=== PATIENT | female | born 1950 | race Caucasian/White ===

== ENCOUNTER 2017-04-05 09:30 | Inpatient (IN) | payer MEDICARE, MEDICAID ==
[2017-04-05] MEDS ORDERED: Ondansetron 4 MG Tab.DIS PO PRN (11:05)
[2017-04-05] MEDS ORDERED: Famotidine 20 MG Tab PO PRN (11:17)
[2017-04-05] MEDS ORDERED: Formoterol/Mometasone 100-5 MCG 8.8 GM Inhaler IH PRN (11:17)
[2017-04-05] MEDS ORDERED: Albuterol 8 GM Inhaler INH PRN (11:17)
[2017-04-05] MEDS ORDERED: Cyclobenzaprine 10 MG Tab PO PRN (11:17)
[2017-04-05] MEDS ORDERED: Sodium Chloride 0.9% 250 ML IV ONE (12:25)
[2017-04-05] MEDS: Pantoprazole 40 MG Vial IV SCH (12:36)
[2017-04-05] MEDS: Insulin Aspart 100 Units/ML 3 ML Pen SUBCUT SCH ×4 (12:45→21:42)
[2017-04-05] MEDS: Gabapentin 100 MG Cap PO SCH ×2 (13:54→19:34)
[2017-04-05] MEDS: Furosemide 40 MG Tab PO SCH (15:25)
[2017-04-05] MEDS: Sodium Chloride 0.9% 1,000 ML IV SCH (17:58)
[2017-04-05] MEDS: atorvaSTATin 20 MG Tab PO SCH ×2 (19:32→19:34)
[2017-04-05] MEDS: LORazepam 0.5 MG Tab PO SCH (19:33)
[2017-04-05] MEDS: QUEtiapine 100 MG Tab PO SCH (19:34)
[2017-04-05] MEDS: Insulin Detemir 100 Units/ML 3 ML Pen SUBCUT SCH (19:36)
[2017-04-05] MEDS: FISH OIL 1000 MG PO SCH (19:43)
[2017-04-05] MEDS: traMADol 50 MG Tab PO PRN (21:44)
[2017-04-06] MEDS: Sodium Chloride 0.9% 1,000 ML IV SCH (07:03)
[2017-04-06] MEDS: traMADol 50 MG Tab PO PRN ×2 (07:09→15:32)
[2017-04-06] MEDS: Citalopram 10 MG Tab PO SCH (07:52)
[2017-04-06] MEDS: Loratadine 10 MG Tab PO SCH (07:53)
[2017-04-06] MEDS: Gabapentin 100 MG Cap PO SCH ×3 (07:53→19:32)
[2017-04-06] MEDS: Losartan 25 MG Tab PO SCH (07:53)
[2017-04-06] MEDS: Furosemide 40 MG Tab PO SCH ×2 (07:53→15:35)
[2017-04-06] MEDS ORDERED: Aspirin 81 MG Tab.EC PO SCH (08:00)
[2017-04-06] MEDS: Insulin Aspart 100 Units/ML 3 ML Pen SUBCUT SCH ×7 (08:01→20:50)
[2017-04-06] MEDS: Insulin Detemir 100 Units/ML 3 ML Pen SUBCUT SCH ×2 (08:05→20:48)
[2017-04-06] MEDS: TRADJENTA 5 MG PO SCH (08:06)
[2017-04-06] MEDS: Metoprolol Succinate 25 MG Tab.ER PO SCH (08:10)
[2017-04-06] MEDS: Pantoprazole 40 MG Vial IV SCH (13:29)
[2017-04-06] MEDS ORDERED: Sodium Chloride 0.9% 10 ML Syringe FLUSH PRN (13:32)
--- NOTE | 2017-04-06 13:32 | PCM.PN ---
- General Info Date of Service: 04/06/17 Admission Dx/Problem (Free Text): Anemia Functional Status: Reports: Pain Controlled, Tolerating Diet. Denies: Ambulating - Review of Systems General: Denies: Fever HEENT: Denies: Ear Pain, Sinus Congestion, Sore Throat Pulmonary: Denies: Shortness of Breath, Cough Cardiovascular: Denies: Chest Pain, Edema, Lightheadedness Gastrointestinal: Reports: Other (bloating). Denies: Melena (stool positive for blood), Nausea, Vomiting Genitourinary: Reports: No Symptoms Musculoskeletal: Reports: Back Pain, Other (side pain) Skin: Reports: Bruising Neurological: Reports: No Symptoms - Patient Data Vitals - Most Recent: Last Vital Signs Temp 100.1 F 04/06/17 11:52 Pulse 87 04/06/17 11:52 Resp 20 04/06/17 11:52 BP 105/61 04/06/17 11:52 Pulse Ox 95 04/06/17 11:52 Weight - Most Recent: 234 lb I&O - Last 24 Hours: Intake & Output 04/05/17 04/06/17 04/06/17 22:59 06:59 14:59 Intake Total 2190 200 981 Output Total 650 1250 Balance 1540 -1050 981 Lab Results Last 24 Hours: Laboratory Results - last 24 hr 04/05/17 04/05/17 04/05/17 Range/Units 09:30 12:35 17:12 WBC (5.0-10.0) 10^3/uL RBC (4.00-5.50) 10^6/uL Hgb (12.0-16.0) g/dL Hct (37.0-47.0) % MCV (82.0-94.0) fL MCH (27.0-32.0) pg MCHC (33.0-38.0) g/dL RDW Coeff of Davis (11.0-15.0) % Plt Count (150-400) 10^3/uL Neut % (Auto) (35-85) % Lymph % (Auto) (10-55) % King % (Auto) (0-16) % Eos % (Auto) (0-5) % Baso % (Auto) (0-3) % Neut # (Auto) (1.80-7.00) 10^3/uL Lymph # (Auto) (1.00-4.80) 10^3/uL [place] # (Auto) (0.00-0.80) 10^3/uL Eos # (Auto) (0.00-0.45) 10^3/uL Baso # (Auto) 10^3/uL POC Glucose 173 H (75-105) mg/dl Iron 55 (35-145) ug/dL TIBC 408 (261-478) ug/dL Transferrin % Sat 13.5 L (20.0-50.0) % Ferritin 8 L (11-307) ng/mL Blood Type A POSITIVE Gel Antibody Screen Negative Crossmatch See Detail 04/05/17 04/06/17 04/06/17 Range/Units 19:39 07:46 08:00 WBC 4.5 L (5.0-10.0) 10^3/uL RBC 3.23 L (4.00-5.50) 10^6/uL Hgb 9.3 L (12.0-16.0) g/dL Hct 29.1 L (37.0-47.0) % MCV 90.1 (82.0-94.0) fL MCH 28.8 (27.0-32.0) pg MCHC 32.0 L (33.0-38.0) g/dL RDW Coeff of Davis 15.0 (11.0-15.0) % Plt Count 128 L (150-400) 10^3/uL Neut % (Auto) 58.8 (35-85) % Lymph % (Auto) 29.6 (10-55) % King % (Auto) 8.5 (0-16) % Eos % (Auto) 2.4 (0-5) % Baso % (Auto) 0.7 (0-3) % Neut # (Auto) 2.64 (1.80-7.00) 10^3/uL Lymph # (Auto) 1.33 (1.00-4.80) 10^3/uL [place] # (Auto) 0.38 (0.00-0.80) 10^3/uL Eos # (Auto) 0.11 (0.00-0.45) 10^3/uL Baso # (Auto) 0.03 10^3/uL POC Glucose 173 H 90 (75-105) mg/dl Iron (35-145) ug/dL TIBC (261-478) ug/dL Transferrin % Sat (20.0-50.0) % Ferritin (11-307) ng/mL Blood Type Gel Antibody Screen Crossmatch 04/06/17 Range/Units 11:56 WBC (5.0-10.0) 10^3/uL RBC (4.00-5.50) 10^6/uL Hgb (12.0-16.0) g/dL Hct (37.0-47.0) % MCV (82.0-94.0) fL MCH (27.0-32.0) pg MCHC (33.0-38.0) g/dL RDW Coeff of Davis (11.0-15.0) % Plt Count (150-400) 10^3/uL Neut % (Auto) (35-85) % Lymph % (Auto) (10-55) % [place] % (Auto) (0-16) % Eos % (Auto) (0-5) % Baso % (Auto) (0-3) % Neut # (Auto) (1.80-7.00) 10^3/uL Lymph # (Auto) (1.00-4.80) 10^3/uL [place] # (Auto) (0.00-0.80) 10^3/uL Eos # (Auto) (0.00-0.45) 10^3/uL Baso # (Auto) 10^3/uL POC Glucose 188 H (75-105) mg/dl Iron (35-145) ug/dL TIBC (261-478) ug/dL Transferrin % Sat (20.0-50.0) % Ferritin (11-307) ng/mL Blood Type Gel Antibody Screen Crossmatch Med Orders - Current: Current Medications Acetaminophen (Tylenol) 650 mg PO Q4H PRN PRN Reason: Pain (Mild 1-3)/fever Albuterol (Ventolin Hfa) 0 gm INH Q4H PRN PRN Reason: Dyspnea Last Admin: 04/05/17 12:48 Dose: 1 puff Atorvastatin Calcium (Lipitor) 80 mg PO BEDTIME [facility] Last Admin: 04/05/17 19:34 Dose: 80 mg Citalopram Hydrobromide (Celexa) 40 mg PO DAILY [facility] Last Admin: 04/06/17 07:52 Dose: 40 mg Cyclobenzaprine HCl (Flexeril) 10 mg PO TID PRN PRN Reason: muscle spasms Famotidine (Pepcid) 20 mg PO DAILY PRN PRN Reason: heart burn Ferrous Sulfate (Ferrous Sulfate) 324 mg PO BIDMEALS GARRY Furosemide (Lasix) 40 mg PO BIDDIURETIC [facility] Last Admin: 04/06/17 07:53 Dose: 40 mg Gabapentin (Neurontin) 100 mg PO TID [facility] Last Admin: 04/06/17 07:53 Dose: 100 mg Sodium Chloride (Normal Saline) 1,000 mls @ 75 mls/hr IV ASDIRECTED [facility] Last Admin: 04/06/17 07:03 Dose: 75 mls/hr Insulin Aspart (Novolog) 40 unit SUBCUT TIDMEALS [facility] Last Admin: 04/06/17 11:57 Dose: 40 unit Insulin Aspart (Novolog) 0 unit SUBCUT WITHMEALSANDBED [facility] PRN Reason: Protocol Last Admin: 04/06/17 11:57 Dose: 3 units Insulin Detemir (Levemir) 60 unit SUBCUT BID [facility] Last Admin: 04/06/17 08:05 Dose: 60 units Loratadine (Claritin) 10 mg PO DAILY [facility] Last Admin: 04/06/17 07:53 Dose: 10 mg Lorazepam (Ativan) 2 mg PO BEDTIME [facility] Last Admin: 04/05/17 19:33 Dose: 2 mg Losartan Potassium (Cozaar) 25 mg PO DAILY [facility] Last Admin: 04/06/17 07:53 Dose: 25 mg Metoprolol Succinate (Toprol Xl) 25 mg PO DAILY [facility] Last Admin: 04/06/17 08:10 Dose: 25 mg Mometasone Furoate/Formoterol Fumar (Dulera 100-5 Mcg) 1 puff IH BIDRT PRN PRN Reason: breathing Ptom [Tradjenta] 5 (Mg)) 5 mg PO DAILY [facility] Last Admin: 04/06/17 08:06 Dose: Not Given Ptom [Fish Oil 1,000 (Mg Softgel] 3 Ca) 3 cap PO BEDTIME [facility] Last Admin: 04/05/17 19:43 Dose: Not Given Ondansetron HCl (Zofran Odt) 4 mg PO Q6H PRN PRN Reason: nausea, able to take PO Pantoprazole Sodium (Protonix Iv) 40 mg IV Q24H [facility] Last Admin: 04/05/17 12:36 Dose: 40 mg Quetiapine Fumarate (Seroquel) 300 mg PO BEDTIME [facility] Last Admin: 04/05/17 19:34 Dose: 300 mg Tramadol HCl (Ultram) 50 mg PO Q6H PRN PRN Reason: Pain Last Admin: 04/06/17 07:09 Dose: 50 mg Discontinued Medications Sodium Chloride (Normal Saline) 250 mls @ 30 mls/hr IV ONETIME ONE Stop: 04/05/17 20:44 Last Admin: 04/05/17 12:47 Dose: 30 mls/hr - Exam General: Alert, Oriented HEENT: Mucous Membr. Moist/[place] Neck: Supple Lungs: Clear to Auscultation, Normal Respiratory Effort Cardiovascular: Regular Rate, Regular Rhythm GI/Abdominal Exam: Normal Bowel Sounds, Soft, Distended. No: Guarding, Rigid Extremities: Normal Inspection Skin: Warm, Dry, Ecchymosis - Problem List & Annotations (1) Anemia SNOMED Code(s): 153079300 Code(s): D64.9 - ANEMIA, UNSPECIFIED Status: Acute Priority: High Current Visit: Yes Qualifiers: Anemia type: other cause - Problem List Review Problem List Initiated/Reviewed/Updated: Yes - My Orders Last 24 Hours: My Active Orders 04/06/17 08:00 Metoprolol Succinate [Toprol XL] 25 mg PO DAILY 04/06/17 17:30 Ferrous Sulfate 324 mg PO BIDMEALS - Assessment Assessment:: Anemia-GI Bleed QASIM - Plan Plan:: Patient feels more fatigued today. She has been sleeping much of stay thus far. Denies feeling short of breath today. Noted stool was positive for blood on admit. Was given 2 units of blood yesterday. Has not had any stools since admit. Feels more bloated today but is tolerating full liquids without any concern. Repeat hemoglobin today 9.3. Iron studies noted, ferritin low. Will follow hemoglobin daily. Start ferrous sulfate. Saline lock IV. Encourage ambulation. Inappropriate for discharge.
[2017-04-06] MEDS: Ferrous Sulfate 324 MG Tab.EC PO SCH (17:27)
[2017-04-06] MEDS: atorvaSTATin 20 MG Tab PO SCH (19:32)
[2017-04-06] MEDS: QUEtiapine 100 MG Tab PO SCH (19:32)
[2017-04-06] MEDS: Acetaminophen 325 MG Tab PO PRN (19:49)
[2017-04-06] MEDS: FISH OIL 1000 MG PO SCH (19:51)
[2017-04-06] MEDS: LORazepam 0.5 MG Tab PO SCH (20:47)
[2017-04-07] MEDS: traMADol 50 MG Tab PO PRN ×2 (04:57→12:19)
[2017-04-07] MEDS: Citalopram 10 MG Tab PO SCH (08:08)
[2017-04-07] MEDS: Gabapentin 100 MG Cap PO SCH (08:09)
[2017-04-07] MEDS: Furosemide 40 MG Tab PO SCH (08:09)
[2017-04-07] MEDS: Loratadine 10 MG Tab PO SCH (08:09)
[2017-04-07] MEDS: Ferrous Sulfate 324 MG Tab.EC PO SCH (08:09)
[2017-04-07] MEDS: Losartan 25 MG Tab PO SCH (08:10)
[2017-04-07] MEDS: Metoprolol Succinate 25 MG Tab.ER PO SCH (08:10)
[2017-04-07] MEDS: Insulin Aspart 100 Units/ML 3 ML Pen SUBCUT SCH ×4 (08:11→12:14)
[2017-04-07] MEDS: TRADJENTA 5 MG PO SCH (08:12)
[2017-04-07] MEDS: Insulin Detemir 100 Units/ML 3 ML Pen SUBCUT SCH (08:14)
[2017-04-07] MEDS: Acetaminophen 325 MG Tab PO PRN (08:17)
[2017-04-07] MEDS: Pantoprazole 40 MG Vial IV SCH (12:01)
[2017-04-07 12:26] VITALS: BP 118/65
--- NOTE | 2017-04-07 13:35 | PCM.DCSUM1 ---
Discharge Summary - Hospital Course Free Text/Narrative:: Patient admitted on Saturday from clinic with anemia. Had presented feeling short of breath and tired. Work up did show that hemoglobin was down to 8.2. Her last hemoglobin was 13. She had not noted any blood in her stools but she had felt abdominal bloating and discomfort. Occult stool was positive from clinic. Her vital signs were stable. Oxygen sats stable. Was admitted and started IV Protonix. Given 2 units of PRBC. - Discharge Data Discharge Date: 04/07/17 Discharge Disposition: DC/Tfer to Acute Hospital 02 Condition: Stable - Discharge Diagnosis/Problem(s) (1) Anemia SNOMED Code(s): 643733949 ICD Code: D64.9 - ANEMIA, UNSPECIFIED Status: Acute Priority: High Current Visit: Yes - Patient Summary/Data Complications: none Hospital Course: Patient admitted for anemia. Was found to have positive occult blood in stool. Given 2 units of PRBC on admit and hemoglobin improved to 9.3 on day 2. She has not had any further stools since admission. Does complain of her abdomen/ stomach being sore. Vital signs have remained stable, oxygen sats 94-95% on room air. She was started on IV fluids and well hydrated, tolerated clear liquid diet. Was able to be advanced without any difficulty. Hemoglobin did drop down to 8.9 today so patient requesting to be transferred to [facility] for further work up as she is concerned about this and "does not want to wait for a scope here". She has been seen at that facility in the past. Is up and ambulating to bathroom fairly well but complains of ongoing significant fatigue and weakness. Iron studies were also low and was started on oral ferrous sulfate yesterday. - Patient Instructions Diet: NPO Activity: As Tolerated Other/Special Instructions: Transfer to Dr. Miller at [facility] per S service - Discharge Plan Home Medications: Home Meds LORazepam [Ativan] 2 mg PO BEDTIME 10/21/13 [History] QUEtiapine [SEROquel] 300 mg PO BEDTIME 10/21/13 [History] atorvaSTATin [Lipitor] 80 mg PO BEDTIME 10/21/13 [History] Citalopram Hydrobromide [Celexa] 40 mg PO DAILY 10/22/13 [History] Cyclobenzaprine [Flexeril] 10 mg PO TID PRN 10/22/13 [History] Albuterol [Proair HFA] 2 puff INH Q4H PRN 09/09/14 [History] Aspirin [Halfprin] 81 mg PO DAILY 09/09/14 [History] Budesonide/Formoterol [Symbicort 160-4.5 MCG] 1 puff INH DAILY 09/09/14 [History ] Cetirizine [ZyrTEC] 10 mg PO DAILY 09/09/14 [History] Furosemide [Lasix] 40 mg PO BID 09/09/14 [History] Losartan Potassium 25 mg PO DAILY 09/09/14 [History] [place]-3/DHA/Epa/Fish Oil [Fish Oil 1,000 mg Softgel] 3 cap PO BEDTIME 09/09/14 [ History] Gabapentin [Neurontin] 100 mg PO TID 04/05/17 [History] Insulin Aspart [Novolog Flexpen] 50 units SUBCUT TIDMEALS 04/05/17 [History] Linagliptin [Tradjenta] 5 mg PO DAILY 04/05/17 [History] Ranitidine [Zantac] 150 mg PO DAILY PRN 04/05/17 [History] Tresiba 120 units SUBCUT BEDTIME 04/05/17 [History] traMADol HCl [Tramadol HCl] 50 mg PO Q6H PRN 04/05/17 [History] Metoprolol Succinate [Toprol Xl] 25 mg PO DAILY 04/06/17 [History] - Discharge Summary/Plan Comment DC Time >30 min.: Yes Discharge Summary/Plan Comment: Transferred to [facility] per patient request. Did contact Dr. Denny at [facility], hospitalist, who did agree to accept the transfer for further work up. Will transfer BLS. Was advised of risks of transfer to include worsening status, bleeding, MVC or even . Benefits of transfer include specialty service. Benefits of nontransfer include facility close to home, treatment for ulcer but no specialty care. She agrees to risks and benefits. - General Info Date of Service: 04/07/17 Admission Dx/Problem (Free Text: Anemia Functional Status: Reports: Pain Controlled, Tolerating Diet, Ambulating - Review of Systems General: Reports: Weakness, Fatigue. Denies: Fever HEENT: Reports: No Symptoms Pulmonary: Reports: Shortness of Breath. Denies: Cough, Wheezing Cardiovascular: Denies: Chest Pain, Edema, Lightheadedness Gastrointestinal: Reports: Abdominal Pain. Denies: Constipation, Diarrhea, Nausea, Vomiting Genitourinary: Reports: No Symptoms Musculoskeletal: Reports: No Symptoms Skin: Reports: No Symptoms Neurological: Reports: No Symptoms - Patient Data Vitals - Most Recent: Last Vital Signs Temp 98.1 F 04/07/17 12:00 Pulse 96 04/07/17 12:00 Resp 20 04/07/17 12:00 BP 118/65 04/07/17 12:00 Pulse Ox 97 04/07/17 12:00 Weight - Most Recent: 233 lb I&O - Last 24 hours: Intake & Output 04/06/17 04/07/17 04/07/17 22:59 06:59 14:59 Intake Total 1400 795 900 Output Total 1000 1300 500 Balance 400 -505 400 Lab Results - Last 24 hrs: Laboratory Results - last 24 hr 04/06/17 04/06/17 04/07/17 Range/Units 17:27 20:46 02:13 WBC 3.6 L (5.0-10.0) 10^3/uL RBC 3.15 L (4.00-5.50) 10^6/uL Hgb 8.9 L (12.0-16.0) g/dL Hct 28.7 L (37.0-47.0) % MCV 91.1 (82.0-94.0) fL MCH 28.3 (27.0-32.0) pg MCHC 31.0 L (33.0-38.0) g/dL RDW Coeff of Davis 14.9 (11.0-15.0) % Plt Count 123 L (150-400) 10^3/uL Neut % (Auto) 42.0 (35-85) % Lymph % (Auto) 43.4 (10-55) % [place] % (Auto) 10.2 (0-16) % Eos % (Auto) 3.6 (0-5) % Baso % (Auto) 0.8 (0-3) % Neut # (Auto) 1.52 L (1.80-7.00) 10^3/uL Lymph # (Auto) 1.57 (1.00-4.80) 10^3/uL [place] # (Auto) 0.37 (0.00-0.80) 10^3/uL Eos # (Auto) 0.13 (0.00-0.45) 10^3/uL Baso # (Auto) 0.03 10^3/uL POC Glucose 107 H 121 H (75-105) mg/dl Med Orders - Current: Current Medications Acetaminophen (Tylenol) 650 mg PO Q4H PRN PRN Reason: Pain (Mild 1-3)/fever Last Admin: 04/07/17 08:17 Dose: 650 mg Albuterol (Ventolin Hfa) 0 gm INH Q4H PRN PRN Reason: Dyspnea Last Admin: 04/05/17 12:48 Dose: 1 puff Atorvastatin Calcium (Lipitor) 80 mg PO BEDTIME [facility] Last Admin: 04/06/17 19:32 Dose: 80 mg Citalopram Hydrobromide (Celexa) 40 mg PO DAILY [facility] Last Admin: 04/07/17 08:08 Dose: 40 mg Cyclobenzaprine HCl (Flexeril) 10 mg PO TID PRN PRN Reason: muscle spasms Famotidine (Pepcid) 20 mg PO DAILY PRN PRN Reason: heart burn Ferrous Sulfate (Ferrous Sulfate) 324 mg PO BIDMEALS [facility] Last Admin: 04/07/17 08:09 Dose: 324 mg Furosemide (Lasix) 40 mg PO BIDDIURETIC [facility] Last Admin: 04/07/17 08:09 Dose: 40 mg Gabapentin (Neurontin) 100 mg PO TID [facility] Last Admin: 04/07/17 08:09 Dose: 100 mg Insulin Aspart (Novolog) 40 unit SUBCUT TIDMEALS [facility] Last Admin: 04/07/17 12:14 Dose: 40 unit Insulin Aspart (Novolog) 0 unit SUBCUT WITHMEALSANDBED [facility] PRN Reason: Protocol Last Admin: 04/07/17 12:14 Dose: 3 units Insulin Detemir (Levemir) 60 unit SUBCUT BID [facility] Last Admin: 04/07/17 08:14 Dose: 60 units Loratadine (Claritin) 10 mg PO DAILY [facility] Last Admin: 04/07/17 08:09 Dose: 10 mg Lorazepam (Ativan) 2 mg PO BEDTIME [facility] Last Admin: 04/06/17 20:47 Dose: 2 mg Losartan Potassium (Cozaar) 25 mg PO DAILY [facility] Last Admin: 04/07/17 08:10 Dose: 25 mg Metoprolol Succinate (Toprol Xl) 25 mg PO DAILY [facility] Last Admin: 04/07/17 08:10 Dose: 25 mg Mometasone Furoate/Formoterol Fumar (Dulera 100-5 Mcg) 1 puff IH BIDRT PRN PRN Reason: breathing Ptom [Tradjenta] 5 (Mg)) 5 mg PO DAILY [facility] Last Admin: 04/07/17 08:12 Dose: 5 mg Ptom [Fish Oil 1,000 (Mg Softgel] 3 Ca) 3 cap PO BEDTIME [facility] Last Admin: 04/06/17 19:51 Dose: Not Given Ondansetron HCl (Zofran Odt) 4 mg PO Q6H PRN PRN Reason: nausea, able to take PO Pantoprazole Sodium (Protonix Iv) 40 mg IV Q24H [facility] Last Admin: 04/07/17 12:01 Dose: 40 mg Quetiapine Fumarate (Seroquel) 300 mg PO BEDTIME [facility] Last Admin: 04/06/17 19:32 Dose: 300 mg Sodium Chloride (Saline Flush) 10 ml FLUSH ASDIRECTED PRN PRN Reason: Keep Vein Open Tramadol HCl (Ultram) 50 mg PO Q6H PRN PRN Reason: Pain Last Admin: 04/07/17 12:19 Dose: 50 mg Discontinued Medications Sodium Chloride (Normal Saline) 1,000 mls @ 75 mls/hr IV ASDIRECTED [facility] Last Admin: 04/06/17 07:03 Dose: 75 mls/hr Sodium Chloride (Normal Saline) 250 mls @ 30 mls/hr IV ONETIME ONE Stop: 04/05/17 20:44 Last Admin: 04/05/17 12:47 Dose: 30 mls/hr - Exam General: Reports: Alert, Oriented HEENT: Reports: Mucous Membr. Moist/[place] Neck: Reports: Supple Lungs: Reports: Clear to Auscultation, Normal Respiratory Effort Cardiovascular: Reports: Regular Rate, Regular Rhythm GI/Abdominal Exam: Normal Bowel Sounds, Soft, Tender (midepigastric pain) Extremities: Normal Inspection, Pedal Edema (trace) Skin: Reports: Warm, Dry Neurological: Reports: No New Focal Deficit *Q Meaningful Use (DIS) - VTE *Q VTE Criteria *Q: - Stroke *Q Stroke Criteria *Q: - AMI *Q AMI Criteria *Q:
== END 2017-04-07 13:45 | DRG 812 ==
LOC: CC.MS 09:30 → CC.FCMC 09:30 → CC.MS 10:27 → UNDOADMIN 10:27 → CC.MS 11:05
PROVIDERS: ADMIT Physician Assistant Medical; ATTEND Family Medicine
PROC: 30233N1 Transfusion of Nonautologous Red Blood Cells into Peripheral Vein, Percutaneous Approach (ICD-10-PCS; principal; 2017-04-05)
DX: D64.9 Anemia, unspecified (principal); K92.2 Gastrointestinal hemorrhage, unspecified; E11.9 Type 2 diabetes mellitus without complications; R53.1 Weakness; R00.2 Palpitations; R06.02 Shortness of breath; E61.1 Iron deficiency; R10.9 Unspecified abdominal pain; Z79.4 Long term (current) use of insulin; Z79.899 Other long term (current) drug therapy; Z88.8 Allergy status to other drugs, medicaments and biological substances; Z79.82 Long term (current) use of aspirin
CPT/HCPCS: 36415; 36430; 71020; 80053; 81001; 82550; 82728; 82962; 83540; 83550; 83615; 84443; 84484; 85025; 86850; 86900; 86901; 86920; 86922; 93005; 93010; A9270-GY; C9113; J1815-GY; J7030; J7050; P9016

== ENCOUNTER 2017-06-07 07:45 | Emergency (ER) | payer MEDICARE, MEDICAID ==
[2017-06-07 08:21] VITALS: BP 127/63
--- NOTE | 2017-06-07 10:23 | EDM.PDOC ---
ED HPI GENERAL MEDICAL PROBLEM - General Chief Complaint: General Stated Complaint: CANT BREATHE Time Seen by Provider: 06/07/17 08:15 Source of Information: Reports: Patient History Limitations: Reports: No Limitations - History of Present Illness INITIAL COMMENTS - FREE TEXT/NARRATIVE: States that for the last couple of days she has been really tired again and then this morning she felt weak and dizzy and SOB like the last time she had this done. Was in [facility] in April for similar episode and was found to have GI bleed on EGD that they weren't able to cauterize according to pt report. We do not have report from that visit. She denies having any pain or nausea. Did not eat or drink this morning. She has not noted any bright red blood from rectum but stool is dark because of iron that she is taking. Onset: Gradual Location: Reports: Abdomen Improves with: Reports: Rest - Related Data Allergies Allergy/AdvReac Type Severity Reaction Status Date / Time codeine Allergy Hives Verified 06/07/17 07:47 erythromycin base Allergy Tachycardia Verified 06/07/17 07:47 lisinopril Allergy Cannot Verified 06/07/17 07:47 Remember meperidine HCl [From Demerol] Allergy Hives Verified 06/07/17 07:47 montelukast sodium Allergy Cannot Verified 06/07/17 07:47 [From Singulair] Remember morphine Allergy Hives Verified 06/07/17 07:47 niacin Allergy Hives Verified 06/07/17 07:47 pregabalin [From Lyrica] Allergy Cannot Verified 06/07/17 07:47 Remember Home Meds: Home Meds LORazepam [Ativan] 2 mg PO BEDTIME 10/21/13 [History] QUEtiapine [SEROquel] 300 mg PO BEDTIME 10/21/13 [History] atorvaSTATin [Lipitor] 80 mg PO BEDTIME 10/21/13 [History] Citalopram Hydrobromide [Celexa] 40 mg PO DAILY 10/22/13 [History] Cyclobenzaprine [Flexeril] 10 mg PO TID PRN 10/22/13 [History] Albuterol [Proair HFA] 2 puff INH Q4H PRN 09/09/14 [History] Aspirin [Halfprin] 81 mg PO DAILY 09/09/14 [History] Budesonide/Formoterol [Symbicort 160-4.5 MCG] 1 puff INH DAILY 09/09/14 [History ] Cetirizine [ZyrTEC] 10 mg PO DAILY 09/09/14 [History] Furosemide [Lasix] 40 mg PO DAILY 09/09/14 [History] Losartan Potassium 25 mg PO DAILY 09/09/14 [History] [place]-3/DHA/Epa/Fish Oil [Fish Oil 1,000 mg Softgel] 3 cap PO BEDTIME 09/09/14 [ History] Gabapentin [Neurontin] 100 mg PO TID 04/05/17 [History] Insulin Aspart [Novolog Flexpen] 50 units SUBCUT TIDMEALS 04/05/17 [History] Linagliptin [Tradjenta] 5 mg PO DAILY 04/05/17 [History] traMADol HCl [Tramadol HCl] 50 mg PO Q6H PRN 04/05/17 [History] Metoprolol Succinate [Toprol Xl] 25 mg PO DAILY 04/06/17 [History] Pantoprazole Sodium 40 mg PO DAILY 04/25/17 [History] Insulin Glargine,Hum.Rec.Anlog [Lantus Solostar] 150 unit SQ BEDTIME 05/08/17 [ History] Amoxicillin 500 mg PO TID 06/07/17 [History] Past Medical History Cardiovascular History: Reports: Hypertension Respiratory History: Reports: Asthma 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) Other OB/BYN History: severe ovarian cysts Musculoskeletal History: Reports: Back Pain, Chronic Psychiatric History: Reports: Anxiety, Depression Endocrine/Metabolic History: Reports: Diabetes, Type II - Past Surgical History HEENT Surgical History: Reports: Adenoidectomy, Tonsillectomy GI Surgical History: Reports: Colonoscopy, Polypectomy Female Surgical History: Reports: Hysterectomy Musculoskeletal Surgical History: Reports: Other (See Below) Social & Family History - Family History Cardiac: Reports: CAD, Hypertension Endocrine/Metabolic: Reports: Diabetes, type II - Tobacco Use Smoking Status *Q: Never Smoker Second Hand Smoke Exposure: No - Alcohol Use Days Per Week of Alcohol Use: 0 - Recreational Drug Use Recreational Drug Use: No - Living Situation & Occupation Living situation: Reports: Single, Alone Occupation: Disabled ED ROS GENERAL - Review of Systems Review Of Systems: See Below Constitutional: Denies: Fever, Chills HEENT: Reports: No Symptoms Respiratory: Reports: Shortness of Breath Cardiovascular: Denies: Chest Pain, Edema GI/Abdominal: Reports: Black Stool. Denies: Bloody Stool, Constipation, Diarrhea, Nausea, Vomiting : Reports: No Symptoms Musculoskeletal: Reports: No Symptoms Skin: Reports: No Symptoms Neurological: Reports: No Symptoms ED EXAM, GENERAL - Physical Exam Exam: See Below Exam Limited By: No Limitations General Appearance: Alert, WD/WN, Mild Distress Ears: Normal External Exam, Normal Canal, Hearing Grossly Normal, Normal TMs Nose: Normal Inspection Throat/Mouth: Normal Inspection, Normal Oropharynx, No Airway Compromise Head: Atraumatic, Normocephalic Neck: Normal Inspection, Supple, Non-Tender, Full Range of Motion Respiratory/Chest: No Respiratory Distress, Lungs Clear, Normal Breath Sounds Cardiovascular: Regular Rate, Rhythm, No Edema GI/Abdominal: Normal Bowel Sounds, Soft, Non-Tender, No Organomegaly Back Exam: Normal Inspection, Full Range of Motion Extremities: Normal Inspection, Normal Range of Motion, No Pedal Edema Neurological: Alert, Oriented Psychiatric: Normal Affect Skin Exam: Warm, Dry, Intact, Normal Color Course - Vital Signs Last Recorded V/S: Last Vital Signs Temp 98.2 F 06/07/17 07:48 Pulse 98 06/07/17 08:20 Resp 18 06/07/17 07:48 BP 127/63 06/07/17 08:20 Pulse Ox - Orders/Labs/Meds Orders: Active Orders 24 hr Category Date Time Status CXR [Chest 2V] [CR] Stat Exams 06/07/17 07:57 Taken Labs: Laboratory Tests 06/07/17 06/07/17 06/07/17 Range/Units 07:57 07:57 07:57 WBC 3.8 L (5.0-10.0) 10^3/uL RBC 2.18 L (4.00-5.50) 10^6/uL Hgb 6.3 L* (12.0-16.0) g/dL Hct 22.3 L (37.0-47.0) % MCV 102.3 H (82.0-94.0) fL MCH 28.9 (27.0-32.0) pg MCHC 28.3 L (33.0-38.0) g/dL RDW Coeff of Davis 15.4 H (11.0-15.0) % Plt Count 159 (150-400) 10^3/uL Neut % (Auto) 52.4 (35-85) % Lymph % (Auto) 31.3 (10-55) % [place] % (Auto) 10.0 (0-16) % Eos % (Auto) 5.8 H (0-5) % Baso % (Auto) 0.5 (0-3) % Neut # (Auto) 1.99 (1.80-7.00) 10^3/uL Lymph # (Auto) 1.19 (1.00-4.80) 10^3/uL [place] # (Auto) 0.38 (0.00-0.80) 10^3/uL Eos # (Auto) 0.22 (0.00-0.45) 10^3/uL Baso # (Auto) 0.02 10^3/uL D-Dimer, Quantitative 0.21 (0.00-0.50) Sodium 139 (136-145) mEq/L Potassium 3.6 (3.5-5.0) mEq/L Chloride 101 (98-106) mEq/L Carbon Dioxide 32 (21-32) mmol/L BUN 15 (7-18) mg/dL Creatinine 1.3 H (0.6-1.0) mg/dL Est Cr Clr Drug Dosing 33.67 mL/min Estimated GFR (MDRD) 41 L (>=60) mL/min Glucose 201 H (75-99) mg/dL Calcium 8.7 (8.4-10.1) mg/dL Meds: Medications Discontinued Medications Generic Name Dose Route Start Last Admin Trade Name Freq PRN Reason Stop Dose Admin Lactated Ringer's 1,000 mls @ 100 mls/hr 06/07/17 10:30 06/07/17 10:49 Ringers, Lactated IV 100 mls/hr ASDIRECTED [facility] Administration - Re-Assessments/Exams Free Text/Narrative Re-Assessment/Exam: 06/07/17 10:[address] Grimaldo at [facility] GI department and he feels that she should be transferred back to be evaluated. Discussed with Dr. Meza hospitalist who did accept on transfer. Will transfer per [facility] ambulance with IV running. Will wait to transfuse at this time as no [facility] ambulance available for transfer and pt is stable. Departure - Departure Time of Disposition: 10:23 Disposition: DC/Tfer to Acute Hospital 02 Condition: Fair Clinical Impression: GI bleed Qualifiers: GI bleed type/associated pathology: gastric ulcer Qualified Code(s): K25.4 - Chronic or unspecified gastric ulcer with hemorrhage Anemia Qualifiers: Anemia type: other cause Other causes of anemia: acute posthemorrhagic Qualified Code(s): D62 - Acute posthemorrhagic anemia - Discharge Information Referrals: Jill Thapa PA [Primary Care Provider] - Forms: ED Department Discharge Additional Instructions: Transfer BLS to [facility] with Dr. Derrick quintero MD Risks of staying her include further bleeding and . Benefits would include GI specialty and surgeon if needed for her GI bleed. She voices understanding of the above and is in agreement with the transfer. - Problem List & Annotations (1) Anemia SNOMED Code(s): 645911046 Code(s): D64.9 - ANEMIA, UNSPECIFIED Status: Acute Priority: High Qualifiers: Anemia type: other cause Other causes of anemia: acute posthemorrhagic Qualified Code(s): D62 - Acute posthemorrhagic anemia (2) GI bleed SNOMED Code(s): 04188756 Code(s): K92.2 - GASTROINTESTINAL HEMORRHAGE, UNSPECIFIED Status: Acute Priority: High Qualifiers: GI bleed type/associated pathology: gastric ulcer Qualified Code(s): K25.4 - Chronic or unspecified gastric ulcer with hemorrhage - Problem List Review Problem List Initiated/Reviewed/Updated: Yes - My Orders Last 24 Hours: My Active Orders 06/07/17 07:57 CXR [Chest 2V] [CR] Stat - Assessment/Plan Last 24 Hours: My Active Orders 06/07/17 07:57 CXR [Chest 2V] [CR] Stat
[2017-06-07] MEDS ORDERED: Lactated Ringers 1,000 ML IV SCH (10:30)
== END 2017-06-07 11:00 ==
LOC: CC.ED 07:45
DX: K25.4 Chronic or unspecified gastric ulcer with hemorrhage (principal); D62 Acute posthemorrhagic anemia; I10 Essential (primary) hypertension; J45.909 Unspecified asthma, uncomplicated; E11.9 Type 2 diabetes mellitus without complications; Z79.4 Long term (current) use of insulin; Z79.82 Long term (current) use of aspirin; Z79.899 Other long term (current) drug therapy; Z88.5 Allergy status to narcotic agent; Z88.1 Allergy status to other antibiotic agents; Z88.6 Allergy status to analgesic agent; Z88.8 Allergy status to other drugs, medicaments and biological substances; Z98.890 Other specified postprocedural states; Z90.710 Acquired absence of both cervix and uterus
CPT/HCPCS: 36415; 71020; 80048; 85025; 85379; 93005; 99285; J7120; 93010; 99284

== ENCOUNTER 2017-09-08 10:15 | Emergency (ER) | payer MEDICARE, MEDICAID ==
--- NOTE | 2017-09-08 10:44 | EDM.PDOC ---
ED HPI GENERAL MEDICAL PROBLEM - General Chief Complaint: General Stated Complaint: "not feeling well" Time Seen by Provider: 09/08/17 10:22 Source of Information: Reports: Patient History Limitations: Reports: No Limitations - History of Present Illness INITIAL COMMENTS - FREE TEXT/NARRATIVE: This patient is a 67 year old female that presents to the ER. 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 She reports that about every 3 weeks she has to go to [facility] in [place] and have capillaries cauterized. She reports over the past couple of months she has been getting a lot of blood. Patient reports she is scheduled with PCP Saturday. Patient reports that on Saturday she felt good. She reports then on Saturday morning she started to feel generally weak and dizzy. She reports she also noticed having darker black stools than usual. She reports then yesterday evening she began to have RUQ, RLQ abdominal pain. She reports last night she also become very short of breath and palpitations. She reports that these symptoms are consistent with her GAVE. The patient is alert and oriented. She is able to ambulate with her cane, as she did this walking into the ER. The patient denies holland, n, v, d, f, cp. She does also report foul smelling urine. Onset Date: 09/07/17 Duration: Day(s): (1) Quality: Reports: Ache Severity: Mild Improves with: Reports: None Worsens with: Reports: None Associated Symptoms: Reports: Malaise, Shortness of Breath, Weakness (generally) . 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 Right Abdomen Pain Score (Numeric/FACES): 4 - Related Data Allergies Allergy/AdvReac Type Severity Reaction Status Date / Time codeine Allergy Hives Verified 09/08/17 10:16 erythromycin base Allergy Tachycardia Verified 09/08/17 10:16 lisinopril Allergy Cannot Verified 09/08/17 10:16 Remember meperidine HCl [From Demerol] Allergy Hives Verified 09/08/17 10:16 montelukast sodium Allergy Cannot Verified 09/08/17 10:16 [From Singulair] Remember morphine Allergy Hives Verified 09/08/17 10:16 niacin Allergy Hives Verified 09/08/17 10:16 pregabalin [From Lyrica] Allergy Cannot Verified 09/08/17 10:16 Remember Home Meds: Home Meds LORazepam [Ativan] 2 mg PO BEDTIME 10/21/13 [History] QUEtiapine [SEROquel] 300 mg PO BEDTIME 10/21/13 [History] atorvaSTATin [Lipitor] 20 mg PO BEDTIME 10/21/13 [History] Citalopram Hydrobromide [Celexa] 40 mg PO DAILY 10/22/13 [History] Cyclobenzaprine [Flexeril] 10 mg PO TID PRN 10/22/13 [History] Albuterol [Proair HFA] 2 puff INH Q4H PRN 09/09/14 [History] Budesonide/Formoterol [Symbicort 160-4.5 MCG] 2 puff INH BID 09/09/14 [History] Cetirizine [ZyrTEC] 10 mg PO DAILY 09/09/14 [History] Furosemide [Lasix] 40 mg PO DAILY 09/09/14 [History] Losartan Potassium 25 mg PO DAILY 09/09/14 [History] Gabapentin [Neurontin] 100 mg PO TID 04/05/17 [History] Insulin Aspart [Novolog Flexpen] 50 units SUBCUT TIDMEALS 04/05/17 [History] Linagliptin [Tradjenta] 5 mg PO DAILY 04/05/17 [History] traMADol HCl [Tramadol HCl] 50 mg PO Q6H PRN 04/05/17 [History] Metoprolol Succinate [Toprol Xl] 25 mg PO DAILY 04/06/17 [History] Pantoprazole Sodium 40 mg PO DAILY 04/25/17 [History] Insulin Glargine,Hum.Rec.Anlog [Lantus Solostar] 150 unit SQ BEDTIME 05/08/17 [ History] Past Medical History Cardiovascular History: Reports: Hypertension Respiratory History: Reports: Asthma 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) Other OB/BYN History: severe ovarian cysts Musculoskeletal History: Reports: Back Pain, Chronic Psychiatric History: Reports: Anxiety, Depression Endocrine/Metabolic History: Reports: Diabetes, Type II - Past Surgical History HEENT Surgical History: Reports: Adenoidectomy, Tonsillectomy GI Surgical History: Reports: Colonoscopy, Polypectomy Female Surgical History: Reports: Hysterectomy Musculoskeletal Surgical History: Reports: Other (See Below) Social & Family History - Family History Cardiac: Reports: CAD, Hypertension Endocrine/Metabolic: Reports: Diabetes, type II - Tobacco Use Smoking Status *Q: Never Smoker Second Hand Smoke Exposure: No - Alcohol Use Days Per Week of Alcohol Use: 0 - Recreational Drug Use Recreational Drug Use: No - Living Situation & Occupation Living situation: Reports: Single, Alone Occupation: Disabled ED ROS GENERAL - Review of Systems Review Of Systems: See Below Constitutional: Reports: Malaise, Weakness (generally), Fatigue HEENT: Reports: No Symptoms Respiratory: Reports: Shortness of Breath Cardiovascular: Reports: Dyspnea on Exertion, Lightheadedness, Palpitations Endocrine: Reports: No Symptoms GI/Abdominal: Reports: Abdominal Pain, Hematochezia : Reports: Other (foul smelling). Denies: Dysuria, Urgency Musculoskeletal: Reports: Foot Pain (left. Fracture, in boot. No acute changes today. ) Skin: Reports: Pallor Neurological: Reports: No Symptoms Psychiatric: Reports: No Symptoms Hematologic/Lymphatic: Reports: Anemia, Easy Bleeding Immunologic: Reports: No Symptoms ED EXAM, GENERAL - Physical Exam Exam: See Below Exam Limited By: No Limitations General Appearance: Alert, WD/WN, No Apparent Distress Eye Exam: Bilateral Eye: PERRL, Other (pale conjucta) Ears: Normal External Exam, Normal Canal, Hearing Grossly Normal, Normal TMs Ear Exam: Bilateral Ear: Auricle Normal, Canal Normal, TM normal Nose: Normal Inspection, Normal Mucosa, No Blood Throat/Mouth: Normal Lips, Normal Teeth, Normal Oropharynx, Normal Voice, No Airway Compromise, Other (pale oral mucosa) Head: Atraumatic, Normocephalic Neck: Normal Inspection, Supple, Non-Tender, Full Range of Motion Respiratory/Chest: No Respiratory Distress, Lungs Clear, Normal Breath Sounds, No Accessory Muscle Use, Chest Non-Tender Cardiovascular: Normal Peripheral Pulses, No Edema, No Gallop, No JVD, No Murmur , No Rub, Tachycardia (102 on exam) Peripheral Pulses: 2+: Radial (L), Radial (R), Posterior Tibial (L), Posterior Tibial (R) GI/Abdominal: Normal Bowel Sounds, Soft, No Organomegaly, No Distention, No Abnormal Bruit, No Mass, Pelvis Stable, Tender (mild RUQ, RLQ. Light palpation. ) (Female) Exam: Deferred Rectal (Female) Exam: Deferred, Other (With patient history, and dark stools, and low hgb. Heme is more than likely +. ) Extremities: Normal Inspection, Normal Range of Motion, Non-Tender, No Pedal Edema, Normal Capillary Refill, Other (left foot boot. ) Neurological: Alert, Oriented, CN II-XII Intact, Normal Cognition, Normal Gait, No Motor/Sensory Deficits Psychiatric: Normal Affect, Normal Mood Skin Exam: Warm, Dry, Intact, No Rash, Pallor Lymphatic: No Adenopathy Course - Vital Signs Last Recorded V/S: Last Vital Signs Temp 98.9 F 09/08/17 14:45 Pulse 85 09/08/17 14:45 Resp 18 09/08/17 14:45 BP 112/52 L 09/08/17 14:45 Pulse Ox 97 09/08/17 12:37 - Orders/Labs/Meds Orders: Active Orders 24 hr Category Date Time Status EKG Documentation Completion [RC] STAT Care 09/08/17 10:26 Active EKG 12 Lead [EK] Stat Ther 09/08/17 10:22 Stop Req Labs: Laboratory Tests 09/08/17 09/08/17 09/08/17 Range/Units 10:19 10:19 10:19 WBC 4.0 L (5.0-10.0) 10^3/uL RBC 2.38 L (4.00-5.50) 10^6/uL Hgb 6.9 L* (12.0-16.0) g/dL Hct 23.4 L (37.0-47.0) % MCV 98.3 H (82.0-94.0) fL MCH 29.0 (27.0-32.0) pg MCHC 29.5 L (33.0-38.0) g/dL RDW Coeff of Davis 16.1 H (11.0-15.0) % Plt Count 166 (150-400) 10^3/uL Neut % (Auto) 60.4 (35-85) % Lymph % (Auto) 22.9 (10-55) % [place] % (Auto) 10.5 (0-16) % Eos % (Auto) 5.2 H (0-5) % Baso % (Auto) 1.0 (0-3) % Neut # (Auto) 2.42 (1.80-7.00) 10^3/uL Lymph # (Auto) 0.92 L (1.00-4.80) 10^3/uL [place] # (Auto) 0.42 (0.00-0.80) 10^3/uL Eos # (Auto) 0.21 (0.00-0.45) 10^3/uL Baso # (Auto) 0.04 10^3/uL Sodium 136 (136-145) mEq/L Potassium 3.7 (3.5-5.0) mEq/L Chloride 100 (98-106) mEq/L Carbon Dioxide 29 (21-32) mmol/L BUN 18 (7-18) mg/dL Creatinine 1.2 H (0.6-1.0) mg/dL Est Cr Clr Drug Dosing 36.47 mL/min Estimated GFR (MDRD) 45 L (>=60) mL/min Glucose 314 H* D (75-99) mg/dL Calcium 8.7 (8.4-10.1) mg/dL Total Bilirubin 0.5 (0.0-1.0) mg/dL AST 40 H (15-37) U/L ALT 26 (12-78) U/L Alkaline Phosphatase 106 (46-116) U/L Creatine Kinase 60 (21-215) U/L Troponin I < 0.017 (0.00-0.06) ng/mL NT-Pro-B Natriuret Pep 49 (0-1000) pg/mL Total Protein 6.2 L (6.4-8.2) g/dL Albumin 3.0 L (3.4-5.0) g/dL Amylase 35 (25-115) U/L Urine Color (YELLOW) Urine Appearance (CLEAR) Urine pH (4.5-8.0) Ur Specific [place] (1.003-1.020) Urine Protein (NEGATIVE) mg/dL Urine Glucose (UA) (NEGATIVE) mg/dL Urine Ketones (NEGATIVE) mg/dL Urine Occult Blood (NEGATIVE) Urine Nitrite (NEGATIVE) Urine Bilirubin (NEGATIVE) Urine Urobilinogen (0.2-1.0) EU/dL Ur Leukocyte Esterase (NEGATIVE) Urine RBC (0-5) /HPF Urine WBC (0-5) /HPF Ur Squamous Epith Cells (NOT SEEN) /HPF Urine Bacteria (NOT SEEN) /HPF Blood Type A POSITIVE Gel Antibody Screen Negative Crossmatch See Detail 09/08/17 Range/Units 10:51 WBC (5.0-10.0) 10^3/uL RBC (4.00-5.50) 10^6/uL Hgb (12.0-16.0) g/dL Hct (37.0-47.0) % MCV (82.0-94.0) fL MCH (27.0-32.0) pg MCHC (33.0-38.0) g/dL RDW Coeff of Davis (11.0-15.0) % Plt Count (150-400) 10^3/uL Neut % (Auto) (35-85) % Lymph % (Auto) (10-55) % [place] % (Auto) (0-16) % Eos % (Auto) (0-5) % Baso % (Auto) (0-3) % Neut # (Auto) (1.80-7.00) 10^3/uL Lymph # (Auto) (1.00-4.80) 10^3/uL [place] # (Auto) (0.00-0.80) 10^3/uL Eos # (Auto) (0.00-0.45) 10^3/uL Baso # (Auto) 10^3/uL Sodium (136-145) mEq/L Potassium (3.5-5.0) mEq/L Chloride (98-106) mEq/L Carbon Dioxide (21-32) mmol/L BUN (7-18) mg/dL Creatinine (0.6-1.0) mg/dL Est Cr Clr Drug Dosing mL/min Estimated GFR (MDRD) (>=60) mL/min Glucose (75-99) mg/dL Calcium (8.4-10.1) mg/dL Total Bilirubin (0.0-1.0) mg/dL AST (15-37) U/L ALT (12-78) U/L Alkaline Phosphatase (46-116) U/L Creatine Kinase (21-215) U/L Troponin I (0.00-0.06) ng/mL NT-Pro-B Natriuret Pep (0-1000) pg/mL Total Protein (6.4-8.2) g/dL Albumin (3.4-5.0) g/dL Amylase (25-115) U/L Urine Color Yellow (YELLOW) Urine Appearance Clear (CLEAR) Urine pH 5.5 (4.5-8.0) Ur Specific [place] 1.020 (1.003-1.020) Urine Protein Negative (NEGATIVE) mg/dL Urine Glucose (UA) Negative (NEGATIVE) mg/dL Urine Ketones Negative (NEGATIVE) mg/dL Urine Occult Blood Negative (NEGATIVE) Urine Nitrite Negative (NEGATIVE) Urine Bilirubin Negative (NEGATIVE) Urine Urobilinogen 1.0 (0.2-1.0) EU/dL Ur Leukocyte Esterase Moderate H (NEGATIVE) Urine RBC Not seen (0-5) /HPF Urine WBC 0-5 (0-5) /HPF Ur Squamous Epith Cells Few H (NOT SEEN) /HPF Urine Bacteria Few H (NOT SEEN) /HPF Blood Type Gel Antibody Screen Crossmatch Meds: Medications Discontinued Medications Generic Name Dose Route Start Last Admin Trade Name Rene PRN Reason Stop Dose Admin Sodium Chloride Confirm 09/08/17 11:11 Normal Saline Administered 09/08/17 11:12 Dose 250 mls @ as directed .ROUTE .STK-MED ONE Pantoprazole Sodium 40 mg 09/08/17 11:40 09/08/17 11:54 Protonix Iv IVPUSH 09/08/17 11:41 40 mg ONETIME ONE Administration - Re-Assessments/Exams Free Text/Narrative Re-Assessment/Exam: 09/08/17 10:34 Lab has called with hgb level of 6.9. Will transfuse 2 units. Will call her GI specialist Dr. Jeronimo at [facility] once have all labs back. 09/08/17 11:06 I have called and spoke to Dr. Phani BLAIR about this patient. He would like to admit patient. Will have to admit to hospitalist. 09/08/17 11:15 [facility] has informed me that they do not have any tele or critical beds available. They report I can either hold onto this patient at our facility or transfer to a different one. I will call [facility] about this patient for possible transfer. 09/08/17 11:26 I have spoken to Dr. [place] BLAIR and Dr. Coburn internal medicine at [facility]. They report that since patient has chronic history of this and transfusions. If I can stabalize her HR under 100 and improve symptoms with transfusion, then could discharge home. I will transfuse her here in ER, then evaluate. I have asked one call to let Dr. Jeronimo know, and call me back with his response. 09/08/17 11:37 I have spoen to one call from [facility], Dr. Jeronimo reports this is a good plan as long as vitals are stable. He will see within the next 1 week. 09/08/17 16:46 Vitals stable, no complaints. Will discharge. Departure - Departure Time of Disposition: 16:50 Disposition: Home, Self-Care 01 Condition: Fair Clinical Impression: GAVE (gastric antral vascular ectasia), Chronic GI bleeding - Discharge Information Instructions: Blood Transfusion, [id number], Gastrointestinal Bleeding, Easy- to-Read Referrals: Howard Acevedo MD [Primary Care Provider] - Forms: ED Department Discharge Additional Instructions: Followup with Dr. Jeronimo in the next 1 week Followup with your primary care provider tomorrow as scheduled Return to the ER for worsening of condition or any emergent concerns - My Orders Last 24 Hours: My Active Orders 09/08/17 10:22 EKG 12 Lead [EK] Stat 09/08/17 10:26 EKG Documentation Completion [RC] STAT - Assessment/Plan Last 24 Hours: My Active Orders 09/08/17 10:22 EKG 12 Lead [EK] Stat 09/08/17 10:26 EKG Documentation Completion [RC] STAT Plan: PLEASE SEE RN NOTE FOR PFSH.
[2017-09-08 10:46] LABS: CHLORIDE,CL 100 mEq/L (98-106); SODIUM,NA 136 mEq/L (136-145)
[2017-09-08] MEDS ORDERED: Sodium Chloride 0.9% 250 ML ONE (11:11)
[2017-09-08] MEDS ORDERED: Pantoprazole 40 MG Vial IVPUSH ONE (11:40)
[2017-09-08 14:59] VITALS: BP 112/52
== END 2017-09-08 17:15 | disposition home or self-care (01) ==
LOC: CC.ED 10:15
DX: K31.811 Angiodysplasia of stomach and duodenum with bleeding (principal); E11.9 Type 2 diabetes mellitus without complications; I10 Essential (primary) hypertension; Z79.4 Long term (current) use of insulin; Z88.5 Allergy status to narcotic agent; Z88.1 Allergy status to other antibiotic agents; Z88.8 Allergy status to other drugs, medicaments and biological substances; Z79.899 Other long term (current) drug therapy
CPT/HCPCS: 36415; 36430; 80053; 81001; 82150; 82550; 83880; 84484; 85025; 86850; 86900; 86901; 86920; 86922; 93005; 96374; 99283; C9113; P9016; 93010

== ENCOUNTER 2018-02-16 09:27 | Emergency (ER) | payer MEDICARE, MEDICAID ==
--- NOTE | 2018-02-16 10:12 | EDM.PDOC ---
ED HPI GENERAL MEDICAL PROBLEM - General Chief Complaint: General Stated Complaint: "I think my blood is low." Time Seen by Provider: 02/16/18 10:00 Source of Information: Reports: Patient History Limitations: Reports: No Limitations - History of Present Illness INITIAL COMMENTS - FREE TEXT/NARRATIVE: This patient is a 67 year old female that presents to the ER. 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 She reports she also has blood vessels in her abdomen that are bleeding chronically. She reports that she on a regular basis needs to have blood tranfusions for this. She reports that she normally feels generally weak, pale, and malaise when her blood level is low. She reports that she comes in, has blood checked, gets transfused, and gets discharged home. She reports she has been attemping to be seen at [facility] for her conditon and her surgeon is working on this. The patient is alert and oriented, she ambulated into ER. She denies holland, dizziness, n, v, d, f, co, soa, abd pain, urinary chagnes. Onset: Today Onset Date: 02/16/18 Location: Reports: Abdomen Severity: Mild Improves with: Reports: None Worsens with: Reports: None Associated Symptoms: Reports: Malaise, Weakness (generally). Denies: Confusion , Chest Pain, Cough, cough w sputum, Diaphoresis, Fever/Chills, Headaches, Loss of Appetite, Nausea/Vomiting, Rash, Seizure, Shortness of Breath, Syncope - Related Data Allergies Allergy/AdvReac Type Severity Reaction Status Date / Time codeine Allergy Hives Verified 02/16/18 09:34 erythromycin base Allergy Tachycardia Verified 02/16/18 09:34 lisinopril Allergy Cannot Verified 02/16/18 09:34 Remember meperidine HCl [From Demerol] Allergy Hives Verified 02/16/18 09:34 montelukast sodium Allergy Cannot Verified 02/16/18 09:34 [From Singulair] Remember morphine Allergy Hives Verified 02/16/18 09:34 niacin Allergy Hives Verified 02/16/18 09:34 pregabalin [From Lyrica] Allergy Cannot Verified 02/16/18 09:34 Remember Home Meds: Home Meds LORazepam [Ativan] 2 mg PO BEDTIME 10/21/13 [History] QUEtiapine [SEROquel] 300 mg PO BEDTIME 10/21/13 [History] atorvaSTATin [Lipitor] 20 mg PO BEDTIME 10/21/13 [History] Citalopram Hydrobromide [Celexa] 40 mg PO BEDTIME 10/22/13 [History] Cyclobenzaprine [Flexeril] 10 mg PO TID PRN 10/22/13 [History] Albuterol [Proair HFA] 2 puff INH Q4H PRN 09/09/14 [History] Budesonide/Formoterol [Symbicort 160-4.5 MCG] 2 puff INH BID 09/09/14 [History] Cetirizine [ZyrTEC] 10 mg PO DAILY 09/09/14 [History] Furosemide [Lasix] 40 mg PO DAILY 09/09/14 [History] Losartan Potassium 25 mg PO DAILY 09/09/14 [History] Gabapentin [Neurontin] 100 mg PO BID 04/05/17 [History] Insulin Aspart [Novolog Flexpen] 50 units SUBCUT TIDMEALS 04/05/17 [History] Linagliptin [Tradjenta] 5 mg PO DAILY 04/05/17 [History] traMADol HCl [Tramadol HCl] 50 mg PO Q6H PRN 04/05/17 [History] Metoprolol Succinate [Toprol Xl] 25 mg PO DAILY 04/06/17 [History] Pantoprazole Sodium 40 mg PO BID 04/25/17 [History] Sulfamethoxazole/Trimethoprim [Bactrim Ds Tablet] 1 each PO BID 10/17/17 [ History] Insulin Detemir [Levemir] 150 unit SQ BEDTIME 10/24/17 [History] Past Medical History Cardiovascular History: Reports: Hypertension Respiratory History: Reports: Asthma Gastrointestinal History: Reports: GI Bleed, Other (See Below) Other Gastrointestinal History: Gastric antral vascular ectasia (GAVE) Genitourinary History: Reports: None [employer]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 (See Below) Other OB/BYN History: severe ovarian cysts Musculoskeletal History: Reports: Back Pain, Chronic Psychiatric History: Reports: Anxiety, Depression Endocrine/Metabolic History: Reports: Diabetes, Type II Hematologic History: Reports: Bleeding Disorder, Blood Transfusion(s), Other ( See Below) 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 - Past Surgical History HEENT Surgical History: Reports: Adenoidectomy, Tonsillectomy GI Surgical History: Reports: Colonoscopy, Polypectomy Female Surgical History: Reports: Hysterectomy Musculoskeletal Surgical History: Reports: Other (See Below) Social & Family History - Family History Family Medical History: Noncontributory Cardiac: Reports: CAD, Hypertension Endocrine/Metabolic: Reports: Diabetes, type II - Tobacco Use Smoking Status *Q: Never Smoker - Recreational Drug Use Recreational Drug Use: No - Living Situation & Occupation Living situation: Reports: Single, Alone Occupation: Disabled ED ROS GENERAL - Review of Systems Review Of Systems: See Below Constitutional: Reports: Malaise, Weakness, Fatigue HEENT: Reports: No Symptoms Respiratory: Reports: No Symptoms Cardiovascular: Reports: No Symptoms Endocrine: Reports: No Symptoms GI/Abdominal: Reports: Other (had camera swallowed that showed bleeidng cappilaries in small bowel per patient. Chronic. ). Denies: Abdominal Pain : Reports: No Symptoms Musculoskeletal: Reports: No Symptoms Skin: Reports: Pallor Neurological: Reports: No Symptoms Psychiatric: Reports: No Symptoms Hematologic/Lymphatic: Reports: Anemia Immunologic: Reports: No Symptoms ED EXAM, GENERAL - Physical Exam Exam: See Below Exam Limited By: No Limitations General Appearance: Alert, WD/WN, No Apparent Distress Eye Exam: Bilateral Eye: PERRL, Other (pale conjucta) Ears: Normal External Exam, Normal Canal, Hearing Grossly Normal, Normal TMs Ear Exam: Bilateral Ear: Auricle Normal, Canal Normal, TM normal Nose: Normal Inspection, Normal Mucosa, No Blood Throat/Mouth: Normal Inspection, Normal Lips, Normal Teeth, Normal Gums, Normal Oropharynx, Normal Voice, No Airway Compromise Head: Atraumatic, Normocephalic Neck: Normal Inspection, Supple, Non-Tender, Full Range of Motion Respiratory/Chest: No Respiratory Distress, Lungs Clear, Normal Breath Sounds, No Accessory Muscle Use Cardiovascular: Normal Peripheral Pulses, Regular Rate, Rhythm (98 on exam), No Edema, No Gallop, No JVD, No Murmur, No Rub Peripheral Pulses: 2+: Radial (L), Radial (R), Posterior Tibial (L), Posterior Tibial (R) GI/Abdominal: Normal Bowel Sounds, Soft, Non-Tender, No Organomegaly, No Distention, No Abnormal Bruit, No Mass, Pelvis Stable (Female) Exam: Deferred Rectal (Female) Exam: Deferred Back Exam: Normal Inspection, Full Range of Motion Extremities: Normal Inspection, Normal Range of Motion, Non-Tender, No Pedal Edema, Normal Capillary Refill Neurological: Alert, Oriented, Normal Cognition, Normal Gait, No Motor/Sensory Deficits Psychiatric: Normal Affect, Normal Mood Skin Exam: Warm, Dry, Intact, No Rash, Pallor Lymphatic: No Adenopathy Course - Vital Signs Last Recorded V/S: Last Vital Signs Temp 98.8 F 02/16/18 09:31 Pulse 102 H 02/16/18 09:31 Resp 20 02/16/18 09:31 BP 124/68 02/16/18 09:31 Pulse Ox 97 02/16/18 09:31 - Orders/Labs/Meds Orders: Active Orders 24 hr Category Date Time Status RED BLOOD CELLS LP [BBK] Stat Lab 02/16/18 10:05 Ordered TYPE AND SCREEN [BBK] Stat Lab 02/16/18 10:05 Ordered TYPE AND SCREEN [BBK] Stat Lab 02/16/18 10:07 Ordered Labs: Laboratory Tests 02/16/18 02/16/18 Range/Units 09:45 09:45 WBC 4.5 L (5.0-10.0) 10^3/uL RBC 3.13 L (4.00-5.50) 10^6/uL Hgb 8.1 L (12.0-16.0) g/dL Hct 27.8 L (37.0-47.0) % MCV 88.8 (82.0-94.0) fL MCH 25.9 L (27.0-32.0) pg MCHC 29.1 L (33.0-38.0) g/dL RDW Coeff of Davis 15.8 H (11.0-15.0) % Plt Count 171 (150-400) 10^3/uL Neut % (Auto) 64.7 (35-85) % Lymph % (Auto) 22.7 (10-55) % [place] % (Auto) 7.7 (0-16) % Eos % (Auto) 4.0 (0-5) % Baso % (Auto) 0.9 (0-3) % Neut # (Auto) 2.94 (1.80-7.00) 10^3/uL Lymph # (Auto) 1.03 (1.00-4.80) 10^3/uL [place] # (Auto) 0.35 (0.00-0.80) 10^3/uL Eos # (Auto) 0.18 (0.00-0.45) 10^3/uL Baso # (Auto) 0.04 10^3/uL Sodium 139 (136-145) mEq/L Potassium 4.1 (3.5-5.0) mEq/L Chloride 102 (98-106) mEq/L Carbon Dioxide 29 (21-32) mmol/L BUN 15 (7-18) mg/dL Creatinine 1.0 (0.6-1.0) mg/dL Est Cr Clr Drug Dosing 43.77 mL/min Estimated GFR (MDRD) 55 L (>=60) mL/min Glucose 245 H (75-99) mg/dL Calcium 8.7 (8.4-10.1) mg/dL Total Bilirubin 0.5 (0.0-1.0) mg/dL AST 31 (15-37) U/L ALT 23 (12-78) U/L Alkaline Phosphatase 116 (46-116) U/L Total Protein 6.7 (6.4-8.2) g/dL Albumin 3.4 (3.4-5.0) g/dL Departure - Departure Time of Disposition: 14:16 Disposition: Home, Self-Care 01 Condition: Fair Clinical Impression: Chronic GI bleeding, GAVE (gastric antral vascular ectasia) Anemia Qualifiers: Anemia type: unspecified type Qualified Code(s): D64.9 - Anemia, unspecified - Discharge Information Instructions: Blood Transfusion, Adult, [id number] Referrals: Howard Acevedo MD [Primary Care Provider] - Forms: ED Department Discharge Additional Instructions: Followup with your primary care provider Return to the ER for worsening of condition or any emergent concerns - My Orders Last 24 Hours: My Active Orders 02/16/18 10:05 RED BLOOD CELLS LP [BBK] Stat TYPE AND SCREEN [BBK] Stat 02/16/18 10:07 TYPE AND SCREEN [BBK] Stat - Assessment/Plan Last 24 Hours: My Active Orders 02/16/18 10:05 RED BLOOD CELLS LP [BBK] Stat TYPE AND SCREEN [BBK] Stat 02/16/18 10:07 TYPE AND SCREEN [BBK] Stat Plan: PLEASE SEE RN NOTE FOR PFSH.
[2018-02-16] MEDS ORDERED: Sodium Chloride 0.9% 250 ML IV SCH (10:30)
[2018-02-16 16:14] VITALS: BP 119/51
== END 2018-02-16 16:30 | disposition home or self-care (01) ==
LOC: CC.ED 09:27
DX: K31.811 Angiodysplasia of stomach and duodenum with bleeding (principal); E11.9 Type 2 diabetes mellitus without complications; I10 Essential (primary) hypertension; D64.9 Anemia, unspecified; Z88.5 Allergy status to narcotic agent; Z88.8 Allergy status to other drugs, medicaments and biological substances; Z88.1 Allergy status to other antibiotic agents; Z79.899 Other long term (current) drug therapy; Z79.4 Long term (current) use of insulin
CPT/HCPCS: 36415; 36430; 80053; 85025; 86850; 86900; 86901; 86920; 86922; 99283; 99284; J7050; P9016

== ENCOUNTER 2018-06-22 20:56 | Inpatient (IN) | payer MEDICARE, MEDICAID ==
[2018-06-22] MEDS ORDERED: oxyCODONE 5 MG Tab PO ONE (21:09)
--- NOTE | 2018-06-22 21:09 | EDM.PDOC ---
ED HPI GENERAL MEDICAL PROBLEM - General Chief Complaint: Upper Extremity Injury/Pain Stated Complaint: fall; pt. states that she fell at home when she had her slippers on at home and accidentally slipped landing on right arm. States she has previously had plate and screws in right arm. Time Seen by Provider: 06/22/18 20:58 Source of Information: Reports: Patient, EMS History Limitations: Reports: No Limitations - History of Present Illness Onset: Today Duration: Hour(s): Location: Reports: Upper Extremity, Right Quality: Reports: Ache, Sharp Severity: Moderate Improves with: Reports: None Worsens with: Reports: None Associated Symptoms: Reports: No Other Symptoms Right Arm Pain Score (Numeric/FACES): 10 - Related Data Allergies Allergy/AdvReac Type Severity Reaction Status Date / Time codeine Allergy Hives Verified 06/22/18 21:03 erythromycin base Allergy Tachycardia Verified 06/22/18 21:03 lisinopril Allergy Cannot Verified 06/22/18 21:03 Remember meperidine HCl [From Demerol] Allergy Hives Verified 06/22/18 21:03 montelukast sodium Allergy Cannot Verified 06/22/18 21:03 [From Singulair] Remember morphine Allergy Hives Verified 06/22/18 21:03 niacin Allergy Hives Verified 06/22/18 21:03 pregabalin [From Lyrica] Allergy Cannot Verified 06/22/18 21:03 Remember Home Meds: Home Meds LORazepam [Ativan] 2 mg PO BEDTIME 10/21/13 [History] QUEtiapine [SEROquel] 300 mg PO BEDTIME 10/21/13 [History] atorvaSTATin [Lipitor] 20 mg PO BEDTIME 10/21/13 [History] Citalopram Hydrobromide [Celexa] 40 mg PO BEDTIME 10/22/13 [History] Cyclobenzaprine [Flexeril] 10 mg PO TID PRN 10/22/13 [History] Albuterol [Proair HFA] 2 puff INH Q4H PRN 09/09/14 [History] Budesonide/Formoterol [Symbicort 160-4.5 MCG] 2 puff INH BID 09/09/14 [History] Cetirizine [ZyrTEC] 10 mg PO DAILY 09/09/14 [History] Furosemide [Lasix] 40 mg PO BID 09/09/14 [History] Losartan Potassium 25 mg PO DAILY 09/09/14 [History] Gabapentin [Neurontin] 100 mg PO BID 04/05/17 [History] Insulin Aspart [Novolog Flexpen] 50 units SUBCUT TIDMEALS 04/05/17 [History] Linagliptin [Tradjenta] 5 mg PO DAILY 04/05/17 [History] traMADol HCl [Tramadol HCl] 50 mg PO Q6H PRN 04/05/17 [History] Metoprolol Succinate [Toprol Xl] 25 mg PO DAILY 04/06/17 [History] Pantoprazole Sodium 40 mg PO BID 04/25/17 [History] Insulin Glargine,Hum.Rec.Anlog [Basaglar Kwikpen U-100] 160 unit SUBCUT BEDTIME 03/20/18 [History] Ferrous Sulfate [Slow Fe] 45 mg PO DAILY 06/22/18 [History] Past Medical History Cardiovascular History: Reports: Hypertension Respiratory History: Reports: Asthma Gastrointestinal History: Reports: GI Bleed, Other (See Below) Other Gastrointestinal History: Gastric antral vascular ectasia (GAVE) Genitourinary History: Reports: 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: severe ovarian cysts Musculoskeletal History: Reports: Back Pain, Chronic Psychiatric History: Reports: Anxiety, Depression Endocrine/Metabolic History: Reports: Diabetes, Type II Hematologic History: Reports: Bleeding Disorder, Blood Transfusion(s), Other ( See Below) 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 - Past Surgical History HEENT Surgical History: Reports: Adenoidectomy, Tonsillectomy GI Surgical History: Reports: Colonoscopy, Polypectomy Female Surgical History: Reports: Hysterectomy Musculoskeletal Surgical History: Reports: Other (See Below) (right arm surgery now has plate and screws) Social & Family History - Family History Family Medical History: Noncontributory Cardiac: Reports: CAD, Hypertension Endocrine/Metabolic: Reports: Diabetes, type II - Living Situation & Occupation Living situation: Reports: Single, Alone Occupation: Disabled ED ROS GENERAL - Review of Systems Review Of Systems: See Below Constitutional: Reports: No Symptoms HEENT: Reports: No Symptoms Respiratory: Reports: No Symptoms Cardiovascular: Reports: No Symptoms Endocrine: Reports: No Symptoms GI/Abdominal: Reports: No Symptoms : Reports: No Symptoms Musculoskeletal: Reports: Shoulder Pain, Arm Pain Skin: Reports: No Symptoms Neurological: Reports: No Symptoms Psychiatric: Reports: No Symptoms Hematologic/Lymphatic: Reports: Anemia Immunologic: Reports: No Symptoms ED EXAM, GENERAL - Physical Exam Exam: See Below Exam Limited By: No Limitations General Appearance: Alert, WD/WN, Mild Distress Nose: Normal Inspection, Normal Mucosa, No Blood Head: Atraumatic, Normocephalic Neck: Normal Inspection, Supple, Non-Tender Respiratory/Chest: No Respiratory Distress, Lungs Clear, Normal Breath Sounds, No Accessory Muscle Use, Chest Non-Tender Cardiovascular: Normal Peripheral Pulses, Regular Rate, Rhythm Peripheral Pulses: 0: Popliteal (R), 2+: Radial (L), Radial (R) Extremities: Normal Inspection, Normal Capillary Refill, Limited Range of Motion , Other (pain and tenderness with mild swelling upper right humerus with limited RUE ROM; neurovascular intact; radial pulse 2+ bilaterally.) Neurological: Alert, Oriented, CN II-XII Intact, Normal Cognition, Normal Gait, No Motor/Sensory Deficits Psychiatric: Normal Affect, Normal Mood Skin Exam: Warm, Dry, Intact, Normal Color, No Rash Course - Vital Signs Text/Narrative:: Pain decreased after patient received oxycodone. Consulted with Dr. Joya whom reviewed xrays and recommends sling or immobilizer. Last Recorded V/S: Last Vital Signs Temp 36.4 C 06/22/18 20:56 Pulse 90 06/22/18 20:56 Resp 18 06/22/18 20:56 BP 112/57 L 06/22/18 20:56 Pulse Ox 98 06/22/18 20:56 - Orders/Labs/Meds Orders: Active Orders 24 hr Category Date Time Status Immobilizer [RC] ASDIRECTED Care 06/22/18 23:01 Active Forearm 2V Rt [CR] Stat Exams 06/22/18 21:07 Taken Head wo Cont [CT] Stat Exams 06/22/18 20:59 Taken Humerus Rt [CR] Stat Exams 06/22/18 21:04 Taken Shoulder Comp Rt [CR] Stat Exams 06/22/18 21:04 Taken Labs: Laboratory Tests 06/22/18 Range/Units 21:25 WBC 6.6 (5.0-10.0) 10^3/uL RBC 3.12 L (4.00-5.50) 10^6/uL Hgb 8.4 L (12.0-16.0) g/dL Hct 28.0 L (37.0-47.0) % MCV 89.7 (82.0-94.0) fL MCH 26.9 L (27.0-32.0) pg MCHC 30.0 L (33.0-38.0) g/dL RDW Coeff of [place] 15.6 H (11.0-15.0) % Plt Count 208 (150-400) 10^3/uL Neut % (Auto) 74.4 (35-85) % Lymph % (Auto) 16.6 (10-55) % [place] % (Auto) 6.7 (0-16) % Eos % (Auto) 1.7 (0-5) % Baso % (Auto) 0.6 (0-3) % Neut # (Auto) 4.87 (1.80-7.00) 10^3/uL Lymph # (Auto) 1.09 (1.00-4.80) 10^3/uL [place] # (Auto) 0.44 (0.00-0.80) 10^3/uL Eos # (Auto) 0.11 (0.00-0.45) 10^3/uL Baso # (Auto) 0.04 10^3/uL Meds: Medications Discontinued Medications Generic Name Dose Route Start Last Admin Trade Name Freq PRN Reason Stop Dose Admin Oxycodone HCl 5 mg 06/22/18 21:09 06/22/18 21:18 Oxycodone PO 06/22/18 21:10 5 mg ONETIME ONE Administration - Radiology Interpretation Free Text/Narrative:: Fractured right proximal humerus. Departure - Departure Time of Disposition: 23:24 Disposition: Refer to Observation Condition: Good Clinical Impression: Fracture, humerus closed - Discharge Information *PRESCRIPTION DRUG MONITORING PROGRAM REVIEWED*: Not Applicable *COPY OF PRESCRIPTION DRUG MONITORING REPORT IN PATIENT JESE: Not Applicable Referrals: Jill Thapa PA [Primary Care Provider] - Forms: ED Department Discharge - Problem List & Annotations (1) Fracture, humerus closed SNOMED Code(s): 83906350 Code(s): S42.309A - UNSP FRACTURE OF SHAFT OF HUMERUS, UNSP ARM, INIT Status: Acute Current Visit: Yes Qualifiers: Humerus Location: proximal Laterality: right - Problem List Review Problem List Initiated/Reviewed/Updated: Yes - My Orders Last 24 Hours: My Active Orders 06/22/18 20:59 Head wo Cont [CT] Stat 06/22/18 21:04 Humerus Rt [CR] Stat Shoulder Comp Rt [CR] Stat 06/22/18 21:07 Forearm 2V Rt [CR] Stat 06/22/18 23:01 Immobilizer [RC] ASDIRECTED - Assessment/Plan Last 24 Hours: My Active Orders 06/22/18 20:59 Head wo Cont [CT] Stat 06/22/18 21:04 Humerus Rt [CR] Stat Shoulder Comp Rt [CR] Stat 06/22/18 21:07 Forearm 2V Rt [CR] Stat 06/22/18 23:01 Immobilizer [RC] ASDIRECTED Assessment:: Fractured right humerus. Vulnerable adult at risk for further falls at home. Mobility problems. Plan: Admit patient to observation overnight. PT evaluation. OT evaluation.
[2018-06-23] MEDS: oxyCODONE 5 MG Tab PO PRN ×3 (03:29→17:19)
[2018-06-23] MEDS ORDERED: Albuterol 8 GM Inhaler INH PRN (07:32)
[2018-06-23] MEDS: Insulin Aspart 100 Units/ML 3 ML Pen SUBCUT SCH ×3 (09:40→17:18)
[2018-06-23] MEDS: Cyclobenzaprine 10 MG Tab PO PRN ×2 (09:42→17:19)
[2018-06-23] MEDS: Losartan 25 MG Tab PO SCH (09:45)
[2018-06-23] MEDS: CETIRIZINE 10 MG PO SCH (09:45)
[2018-06-23] MEDS: FERROUS SULFATE 45 MG PO SCH (09:46)
[2018-06-23] MEDS: Metoprolol Succinate 25 MG Tab.ER PO SCH (09:47)
[2018-06-23] MEDS: LINAGLIPTIN 5 MG PO SCH (09:47)
[2018-06-23] MEDS: **PTOM** Furosemide 40 MG Tab PO SCH ×2 (09:48→19:40)
[2018-06-23] MEDS: **PTOM** Pantoprazole 40 MG Tab.CR PO SCH ×2 (09:49→19:40)
[2018-06-23] MEDS: Acetaminophen 325 MG Tab PO PRN (09:56)
[2018-06-23] MEDS: Gabapentin 100 MG Cap PO SCH ×2 (09:58→19:40)
[2018-06-23] MEDS: Formoterol/Mometasone 200-5 MCG 8.8 GM Inhaler IH SCH ×2 (09:59→19:53)
--- NOTE | 2018-06-23 18:39 | PCM.PN ---
- General Info Date of Service: 06/23/18 Admission Dx/Problem (Free Text): Right humerus Fracture Functional Status: Reports: Tolerating Diet. Denies: Pain Controlled, Ambulating - Review of Systems General: Reports: Weakness HEENT: Reports: No Symptoms Pulmonary: Denies: Shortness of Breath, Cough Cardiovascular: Denies: Chest Pain, Edema, Lightheadedness Gastrointestinal: Denies: Abdominal Pain, Nausea, Vomiting Musculoskeletal: Reports: Shoulder Pain, Arm Pain, Other (muscle spasms right upper arm) Skin: Reports: Bruising Neurological: Reports: No Symptoms - Patient Data Vitals - Most Recent: Last Vital Signs Temp 98.1 F 06/23/18 07:28 Pulse 105 H 06/23/18 09:47 Resp 20 06/23/18 07:28 BP 138/56 L 06/23/18 09:47 Pulse Ox 97 06/23/18 07:28 Weight - Most Recent: 220 lb Lab Results Last 24 Hours: Laboratory Results - last 24 hr 06/22/18 06/23/18 06/23/18 Range/Units 21:25 07:26 11:46 WBC 6.6 (5.0-10.0) 10^3/uL RBC 3.12 L (4.00-5.50) 10^6/uL Hgb 8.4 L (12.0-16.0) g/dL Hct 28.0 L (37.0-47.0) % MCV 89.7 (82.0-94.0) fL MCH 26.9 L (27.0-32.0) pg MCHC 30.0 L (33.0-38.0) g/dL RDW Coeff of [place] 15.6 H (11.0-15.0) % Plt Count 208 (150-400) 10^3/uL Neut % (Auto) 74.4 (35-85) % Lymph % (Auto) 16.6 (10-55) % [place] % (Auto) 6.7 (0-16) % Eos % (Auto) 1.7 (0-5) % Baso % (Auto) 0.6 (0-3) % Neut # (Auto) 4.87 (1.80-7.00) 10^3/uL Lymph # (Auto) 1.09 (1.00-4.80) 10^3/uL [place] # (Auto) 0.44 (0.00-0.80) 10^3/uL Eos # (Auto) 0.11 (0.00-0.45) 10^3/uL Baso # (Auto) 0.04 10^3/uL POC Glucose 303 H 331 H (75-105) mg/dl 06/23/18 Range/Units 17:16 WBC (5.0-10.0) 10^3/uL RBC (4.00-5.50) 10^6/uL Hgb (12.0-16.0) g/dL Hct (37.0-47.0) % MCV (82.0-94.0) fL MCH (27.0-32.0) pg MCHC (33.0-38.0) g/dL RDW Coeff of [place] (11.0-15.0) % Plt Count (150-400) 10^3/uL Neut % (Auto) (35-85) % Lymph % (Auto) (10-55) % [place] % (Auto) (0-16) % Eos % (Auto) (0-5) % Baso % (Auto) (0-3) % Neut # (Auto) (1.80-7.00) 10^3/uL Lymph # (Auto) (1.00-4.80) 10^3/uL [place] # (Auto) (0.00-0.80) 10^3/uL Eos # (Auto) (0.00-0.45) 10^3/uL Baso # (Auto) 10^3/uL POC Glucose 336 H (75-105) mg/dl Med Orders - Current: Current Medications Acetaminophen (Tylenol) 650 mg PO Q6H PRN PRN Reason: Pain (mild 1-3) Last Admin: 06/23/18 09:56 Dose: 650 mg Albuterol (Ventolin Hfa) 0 gm INH Q4H PRN PRN Reason: Dyspnea Cyclobenzaprine HCl (Flexeril) 10 mg PO TID PRN PRN Reason: muscle spasms Last Admin: 06/23/18 17:19 Dose: 10 mg Furosemide (Lasix) 40 mg PO BID [facility] Last Admin: 06/23/18 09:48 Dose: 40 mg Gabapentin (Neurontin) 100 mg PO BID [facility] Last Admin: 06/23/18 09:58 Dose: Not Given Insulin Aspart (Novolog) 30 unit SUBCUT TIDMEALS [facility] Last Admin: 06/23/18 17:18 Dose: 30 units Insulin Glargine (Lantus) 160 unit SUBCUT BEDTIME [facility] Losartan Potassium (Cozaar) 25 mg PO DAILY [facility] Last Admin: 06/23/18 09:45 Dose: 25 mg Metoprolol Succinate (Toprol Xl) 25 mg PO DAILY [facility] Last Admin: 06/23/18 09:47 Dose: 25 mg Mometasone Furoate/Formoterol Fumar (Dulera 200-5 Mcg) 2 puff IH BID [facility] Last Admin: 06/23/18 09:59 Dose: Not Given Ptom Atorvastatin [ Lipitor] 20 Mg 20 mg PO BEDTIME [facility] Ptom Cetirizine ([Zyrtec] 10 Mg) 10 mg PO DAILY [facility] Last Admin: 06/23/18 09:45 Dose: 10 mg Ptom Citalopram Hydrobromide [Celexa ] 40 Mg 40 mg PO BEDTIME [facility] Ptom Ferrous (Sulfate 45 Mg) 45 mg PO DAILY [facility] Last Admin: 06/23/18 09:46 Dose: 45 mg Ptom Lorazepam [ (Ativan] 2 Mg) 2 mg PO BEDTIME [facility] Ptom Linagliptin ([Tradjenta] 5 Mg) 5 mg PO DAILY [facility] Last Admin: 06/23/18 09:47 Dose: 5 mg Ptom Quetiapine (300mg Tab) 300 mg PO BEDTIME [facility] Oxycodone HCl (Oxycodone) 5 mg PO Q6H PRN PRN Reason: Pain (moderate 4-6) Last Admin: 06/23/18 17:19 Dose: 5 mg Pantoprazole Sodium (Protonix) 40 mg PO BID [facility] Last Admin: 06/23/18 09:49 Dose: 40 mg Discontinued Medications Oxycodone HCl (Oxycodone) 5 mg PO ONETIME ONE Stop: 06/22/18 21:10 Last Admin: 06/22/18 21:18 Dose: 5 mg Quetiapine Fumarate (Seroquel) 300 mg PO BEDTIME [facility] - Exam General: Alert, Oriented, Mild Distress HEENT: Mucous Membr. Moist/[place] Neck: Supple Lungs: Clear to Auscultation, Normal Respiratory Effort Cardiovascular: Regular Rate, Regular Rhythm GI/Abdominal Exam: Normal Bowel Sounds, Soft, Non-Tender Extremities: Arm Pain, Other (bruising noted to right upper arm. Tender to upper arm/shoulder region. Immobilizer intact) Skin: Warm, Dry, Ecchymosis Neurological: No New Focal Deficit - Problem List & Annotations (1) Fracture, humerus closed SNOMED Code(s): 89649879 Code(s): S42.309A - UNSP FRACTURE OF SHAFT OF HUMERUS, UNSP ARM, INIT Status: Acute Priority: High Current Visit: Yes Qualifiers: Encounter type: initial encounter Humerus Location: proximal Fracture alignment: nondisplaced Laterality: right - Problem List Review Problem List Initiated/Reviewed/Updated: Yes - My Orders Last 24 Hours: My Active Orders 06/23/18 09:00 Insulin Aspart [NovoLOG] 30 unit SUBCUT TIDMEALS 06/23/18 09:14 Consult to Case Management/Cheesemaker [CONS] Routine 06/23/18 20:00 Quetiapine 300mg Tab 300 mg PO BEDTIME - Assessment Assessment:: Right Humeral Fracture - Plan Plan:: Patient complains of having muscle spasms in her upper arm at times. Is wearing immobilizer. Bruising noted to right upper arm. Blood sugars running high around 300. Patient relates that she takes between 20-65 units of Novolog at home depending on her blood sugars. Will continue to use 30 units at mealtime, Levemir 160 units at bedtime. Is using oxycodone for pain. Flexeril for muscle spasm. Did contact Dr. Joya regarding xrays/plan. He has reviewed the xrays. Will see her on Saturday for evaluation. Keep immobilizer on at this point, pain control. Possible discharge home tomorrow.
[2018-06-23] MEDS: CITALOPRAM HYDROBROMIDE 40 MG PO SCH (19:39)
[2018-06-23] MEDS: ATORVASTATIN 20 MG PO SCH (19:39)
[2018-06-23] MEDS: QUETIAPINE 300 MG PO SCH (19:40)
[2018-06-23] MEDS: Insulin Glarg,Human.Rec.Analog 100 UNIT/ML ML SUBCUT SCH (19:41)
[2018-06-23] MEDS: LORAZEPAM 2 MG PO SCH (19:53)
[2018-06-23] MEDS ORDERED: QUEtiapine 100 MG Tab PO SCH (20:00)
[2018-06-24] MEDS: oxyCODONE 5 MG Tab PO PRN ×4 (00:34→19:51)
[2018-06-24] MEDS: Cyclobenzaprine 10 MG Tab PO PRN ×3 (00:35→16:18)
[2018-06-24] MEDS: Losartan 25 MG Tab PO SCH (08:11)
[2018-06-24] MEDS: CETIRIZINE 10 MG PO SCH (08:11)
[2018-06-24] MEDS: FERROUS SULFATE 45 MG PO SCH (08:12)
[2018-06-24] MEDS: **PTOM** Furosemide 40 MG Tab PO SCH (08:12)
[2018-06-24] MEDS: Formoterol/Mometasone 200-5 MCG 8.8 GM Inhaler IH SCH ×2 (08:12→21:20)
[2018-06-24] MEDS: LINAGLIPTIN 5 MG PO SCH (08:13)
[2018-06-24] MEDS: Insulin Aspart 100 Units/ML 3 ML Pen SUBCUT SCH ×3 (08:13→17:32)
[2018-06-24] MEDS: Gabapentin 100 MG Cap PO SCH ×2 (08:13→19:50)
[2018-06-24] MEDS: **PTOM** Pantoprazole 40 MG Tab.CR PO SCH ×2 (08:14→19:51)
[2018-06-24] MEDS: Metoprolol Succinate 25 MG Tab.ER PO SCH (08:14)
[2018-06-24] MEDS ORDERED: Tuberculin, PPD 5 Units/0.1 ML 1 ML MDV IDERM ONE (13:36)
[2018-06-24] MEDS: Furosemide 40 MG Tab PO SCH (16:12)
--- NOTE | 2018-06-24 19:20 | PCM.PN ---
- General Info Date of Service: 06/24/18 Admission Dx/Problem (Free Text): Right humerus Fracture Functional Status: Reports: Tolerating Diet, Ambulating. Denies: Pain Controlled - Review of Systems General: Reports: Weakness. Denies: Fever HEENT: Reports: No Symptoms Pulmonary: Denies: Shortness of Breath, Cough Cardiovascular: Denies: Chest Pain, Edema, Lightheadedness Gastrointestinal: Denies: Abdominal Pain, Nausea, Vomiting Genitourinary: Reports: No Symptoms Musculoskeletal: Reports: Shoulder Pain, Arm Pain Skin: Reports: Bruising Neurological: Reports: Weakness - Patient Data Vitals - Most Recent: Last Vital Signs Temp 96.9 F 06/24/18 08:00 Pulse 93 06/24/18 08:14 Resp 18 06/24/18 08:00 BP 134/57 L 06/24/18 08:14 Pulse Ox 98 06/24/18 08:00 Weight - Most Recent: 220 lb Lab Results Last 24 Hours: Laboratory Results - last 24 hr 06/24/18 06/24/18 06/24/18 Range/Units 07:26 12:04 17:13 POC Glucose 185 H 233 H 146 H (75-105) mg/dl Med Orders - Current: Current Medications Acetaminophen (Tylenol) 650 mg PO Q6H PRN PRN Reason: Pain (mild 1-3) Last Admin: 06/23/18 09:56 Dose: 650 mg Albuterol (Ventolin Hfa) 0 gm INH Q4H PRN PRN Reason: Dyspnea Cyclobenzaprine HCl (Flexeril) 10 mg PO TID PRN PRN Reason: muscle spasms Last Admin: 06/24/18 16:18 Dose: 10 mg Furosemide (Lasix) 40 mg PO BIDDIURETIC [facility] Last Admin: 06/24/18 16:12 Dose: 40 mg Gabapentin (Neurontin) 100 mg PO BID [facility] Last Admin: 06/24/18 08:13 Dose: 100 mg Insulin Aspart (Novolog) 30 unit SUBCUT TIDMEALS [facility] Last Admin: 06/24/18 17:32 Dose: 30 units Insulin Glargine (Lantus) 160 unit SUBCUT BEDTIME [facility] Last Admin: 06/23/18 19:41 Dose: 160 units Losartan Potassium (Cozaar) 25 mg PO DAILY [facility] Last Admin: 06/24/18 08:11 Dose: 25 mg Metoprolol Succinate (Toprol Xl) 25 mg PO DAILY [facility] Last Admin: 06/24/18 08:14 Dose: 25 mg Mometasone Furoate/Formoterol Fumar (Dulera 200-5 Mcg) 2 puff IH BID [facility] Last Admin: 06/24/18 08:12 Dose: Not Given Ptom Atorvastatin [ Lipitor] 20 Mg 20 mg PO BEDTIME [facility] Last Admin: 06/23/18 19:39 Dose: 20 mg Ptom Cetirizine ([Zyrtec] 10 Mg) 10 mg PO DAILY [facility] Last Admin: 06/24/18 08:11 Dose: 10 mg Ptom Citalopram Hydrobromide [Celexa ] 40 Mg 40 mg PO BEDTIME [facility] Last Admin: 06/23/18 19:39 Dose: 40 mg Ptom Ferrous (Sulfate 45 Mg) 45 mg PO DAILY [facility] Last Admin: 06/24/18 08:12 Dose: 45 mg Ptom Lorazepam [ (Ativan] 2 Mg) 2 mg PO BEDTIME [facility] Last Admin: 06/23/18 19:53 Dose: 2 mg Ptom Linagliptin ([Tradjenta] 5 Mg) 5 mg PO DAILY [facility] Last Admin: 06/24/18 08:13 Dose: 5 mg Ptom Quetiapine (300mg Tab) 300 mg PO BEDTIME [facility] Last Admin: 06/23/18 19:40 Dose: 300 mg Oxycodone HCl (Oxycodone) 5 mg PO Q6H PRN PRN Reason: Pain (moderate 4-6) Last Admin: 06/24/18 12:49 Dose: 5 mg Pantoprazole Sodium (Protonix) 40 mg PO BID [facility] Last Admin: 06/24/18 08:14 Dose: 40 mg Discontinued Medications Furosemide (Lasix) 40 mg PO BID [facility] Last Admin: 06/24/18 08:12 Dose: 40 mg Oxycodone HCl (Oxycodone) 5 mg PO ONETIME ONE Stop: 06/22/18 21:10 Last Admin: 06/22/18 21:18 Dose: 5 mg Quetiapine Fumarate (Seroquel) 300 mg PO BEDTIME [facility] Tuberculin PPD (Aplisol) 5 unit IDERM ONETIME ONE Stop: 06/24/18 13:37 Last Admin: 06/24/18 14:01 Dose: 5 unit - Exam General: Alert, Oriented HEENT: Mucous Membr. Moist/[place] Neck: Supple Lungs: Clear to Auscultation, Normal Respiratory Effort Cardiovascular: Regular Rate, Regular Rhythm GI/Abdominal Exam: Normal Bowel Sounds, Soft, Non-Tender Extremities: Normal Inspection, No Pedal Edema Skin: Ecchymosis Neurological: No New Focal Deficit - Problem List & Annotations (1) Fracture, humerus closed SNOMED Code(s): 30270134 Code(s): S42.309A - UNSP FRACTURE OF SHAFT OF HUMERUS, UNSP ARM, INIT Status: Acute Priority: High Current Visit: Yes Qualifiers: Encounter type: initial encounter Humerus Location: proximal Fracture alignment: nondisplaced Laterality: right - Problem List Review Problem List Initiated/Reviewed/Updated: Yes - My Orders Last 24 Hours: My Active Orders 06/23/18 20:00 Quetiapine 300mg Tab 300 mg PO BEDTIME - Assessment Assessment:: Right Humeral Fracture - Plan Plan:: Patient complains of having muscle spasms in her upper arm at times. Is wearing immobilizer. Bruising noted to right upper arm. Blood sugars running high around 300. Patient relates that she takes between 20-65 units of Novolog at home depending on her blood sugars. Will continue to use 30 units at mealtime, Levemir 160 units at bedtime. Is using oxycodone for pain. Flexeril for muscle spasm. Did contact Dr. Joya regarding xrays/plan. He has reviewed the xrays. Will see her on Saturday for evaluation. Keep immobilizer on at this point, pain control. Possible discharge home tomorrow. 06-24-2018 Patient having more pain this am. States slept well through the night and got behind on pain meds so "is suffering this am". Bruising is more prominent today. Immobilizer intact. Is still requiring help with all cares as is unsteady and unable to toilet, bathe without assistance due to pain and immobility. Transferred to inpatient care due to vulnerable adult and inability to care for self. Will see Dr. Joya tomorrow for evaluation. Probable admission to longterm for short stay for assistance with cares, standby assistance for transfers due to being unsteady, monitoring blood sugars as is vulnerable adult , no family available to provide care and lives alone.
[2018-06-24] MEDS: QUETIAPINE 300 MG PO SCH (19:49)
[2018-06-24] MEDS: Acetaminophen 325 MG Tab PO PRN (19:50)
[2018-06-24] MEDS: Insulin Glarg,Human.Rec.Analog 100 UNIT/ML ML SUBCUT SCH (19:52)
[2018-06-24] MEDS: ATORVASTATIN 20 MG PO SCH (21:12)
[2018-06-24] MEDS: CITALOPRAM HYDROBROMIDE 40 MG PO SCH (21:12)
[2018-06-24] MEDS: LORAZEPAM 2 MG PO SCH (21:13)
[2018-06-24] MEDS ORDERED: atorvaSTATin 20 MG Tab ONE (21:21)
[2018-06-24] MEDS ORDERED: Citalopram 10 MG Tab ONE ×2 (21:21→21:30)
[2018-06-24] MEDS ORDERED: LORazepam 0.5 MG Tab ONE (21:21)
[2018-06-24] MEDS: LORazepam 0.5 MG Tab PO SCH (21:22)
[2018-06-24] MEDS: atorvaSTATin 20 MG Tab PO SCH (21:24)
[2018-06-24] MEDS: Citalopram 10 MG Tab PO SCH (21:24)
[2018-06-25] MEDS: Cyclobenzaprine 10 MG Tab PO PRN ×3 (04:20→19:49)
[2018-06-25] MEDS: Pantoprazole 40 MG Tab.CR PO SCH ×2 (07:07→20:25)
[2018-06-25] MEDS: Furosemide 40 MG Tab PO SCH ×2 (07:41→16:12)
[2018-06-25] MEDS: Gabapentin 100 MG Cap PO SCH ×2 (07:41→19:34)
[2018-06-25] MEDS: oxyCODONE 5 MG Tab PO PRN ×3 (07:41→21:02)
[2018-06-25] MEDS: Metoprolol Succinate 25 MG Tab.ER PO SCH (07:42)
[2018-06-25] MEDS: Loratadine 10 MG Tab PO SCH (07:42)
[2018-06-25] MEDS: Losartan 25 MG Tab PO SCH (07:42)
[2018-06-25] MEDS: FERROUS SULFATE 45 MG PO SCH (07:45)
[2018-06-25] MEDS: LINAGLIPTIN 5 MG PO SCH (07:46)
[2018-06-25] MEDS: Formoterol/Mometasone 200-5 MCG 8.8 GM Inhaler IH SCH ×2 (07:48→19:35)
[2018-06-25] MEDS: Insulin Aspart 100 Units/ML 3 ML Pen SUBCUT SCH ×3 (07:50→17:44)
--- NOTE | 2018-06-25 14:10 | PCM.PN ---
- General Info Date of Service: 06/25/18 Admission Dx/Problem (Free Text): Right humerus Fracture Functional Status: Reports: Pain Controlled, Tolerating Diet, Ambulating - Review of Systems General: Reports: Weakness. Denies: Fever HEENT: Reports: No Symptoms Pulmonary: Denies: Shortness of Breath, Cough Cardiovascular: Denies: Chest Pain, Lightheadedness Gastrointestinal: Denies: Abdominal Pain, Nausea, Vomiting Genitourinary: Reports: No Symptoms Musculoskeletal: Reports: Shoulder Pain, Arm Pain Skin: Reports: Bruising Neurological: Reports: No Symptoms - Patient Data Vitals - Most Recent: Last Vital Signs Temp 99.2 F 06/25/18 07:04 Pulse 100 06/25/18 07:42 Resp 20 06/25/18 07:04 BP 131/62 06/25/18 07:42 Pulse Ox 94 L 06/25/18 07:04 Weight - Most Recent: 220 lb Lab Results Last 24 Hours: Laboratory Results - last 24 hr 06/24/18 06/24/18 06/25/18 Range/Units 17:13 20:25 07:50 POC Glucose 146 H 228 H 182 H (75-105) mg/dl 06/25/18 Range/Units 11:16 POC Glucose 257 H (75-105) mg/dl Med Orders - Current: Current Medications Acetaminophen (Tylenol) 650 mg PO Q6H PRN PRN Reason: Pain (mild 1-3) Last Admin: 06/24/18 19:50 Dose: 650 mg Albuterol (Ventolin Hfa) 0 gm INH Q4H PRN PRN Reason: Dyspnea Atorvastatin Calcium (Lipitor) 20 mg PO BEDTIME [facility] Last Admin: 06/24/18 21:24 Dose: 20 mg Citalopram Hydrobromide (Celexa) 40 mg PO BEDTIME [facility] Last Admin: 06/24/18 21:24 Dose: 40 mg Cyclobenzaprine HCl (Flexeril) 10 mg PO TID PRN PRN Reason: muscle spasms Last Admin: 06/25/18 11:20 Dose: 10 mg Furosemide (Lasix) 40 mg PO BIDDIURETIC [facility] Last Admin: 06/25/18 07:41 Dose: 40 mg Gabapentin (Neurontin) 100 mg PO BID [facility] Last Admin: 06/25/18 07:41 Dose: 100 mg Insulin Aspart (Novolog) 30 unit SUBCUT TIDMEALS [facility] Last Admin: 06/25/18 11:21 Dose: 30 units Insulin Glargine (Lantus) 160 unit SUBCUT BEDTIME [facility] Last Admin: 06/24/18 19:52 Dose: 160 units Loratadine (Claritin) 10 mg PO DAILY [facility] Last Admin: 06/25/18 07:42 Dose: 10 mg Lorazepam (Ativan) 2 mg PO BEDTIME [facility] Last Admin: 06/24/18 21:22 Dose: 2 mg Losartan Potassium (Cozaar) 25 mg PO DAILY [facility] Last Admin: 06/25/18 07:42 Dose: 25 mg Metoprolol Succinate (Toprol Xl) 25 mg PO DAILY [facility] Last Admin: 06/25/18 07:42 Dose: 25 mg Mometasone Furoate/Formoterol Fumar (Dulera 200-5 Mcg) 2 puff IH BID [facility] Last Admin: 06/25/18 07:48 Dose: 2 puff Ptom Ferrous (Sulfate 45 Mg) 45 mg PO DAILY [facility] Last Admin: 06/25/18 07:45 Dose: 45 mg Ptom Linagliptin ([Tradjenta] 5 Mg) 5 mg PO DAILY [facility] Last Admin: 06/25/18 07:46 Dose: 5 mg Oxycodone HCl (Oxycodone) 5 mg PO Q6H PRN PRN Reason: Pain (moderate 4-6) Last Admin: 06/25/18 07:41 Dose: 5 mg Pantoprazole Sodium (Protonix) 40 mg PO BID@0700,2100 [facility] Last Admin: 06/25/18 07:07 Dose: 40 mg Quetiapine Fumarate (Seroquel) 300 mg PO BEDTIME [facility] Discontinued Medications Atorvastatin Calcium (Lipitor) Confirm Administered Dose 40 mg .ROUTE .STK-MED ONE Stop: 06/24/18 21:22 Last Admin: 06/24/18 21:25 Dose: Not Given Citalopram Hydrobromide (Celexa) Confirm Administered Dose 20 mg .ROUTE .STK- MED ONE Stop: 06/24/18 21:22 Last Admin: 06/24/18 21:25 Dose: Not Given Citalopram Hydrobromide (Celexa) Confirm Administered Dose 20 mg .ROUTE .STK- MED ONE Stop: 06/24/18 21:31 Last Admin: 06/24/18 21:36 Dose: Not Given Furosemide (Lasix) 40 mg PO BID [facility] Last Admin: 06/24/18 08:12 Dose: 40 mg Lorazepam (Ativan) Confirm Administered Dose 2 mg .ROUTE .STK-MED ONE Stop: 06/24/18 21:22 Last Admin: 06/24/18 21:25 Dose: Not Given Ptom Atorvastatin [ Lipitor] 20 Mg 20 mg PO BEDTIME [facility] Last Admin: 06/24/18 21:12 Dose: Not Given Ptom Cetirizine ([Zyrtec] 10 Mg) 10 mg PO DAILY [facility] Last Admin: 06/24/18 08:11 Dose: 10 mg Ptom Citalopram Hydrobromide [Celexa ] 40 Mg 40 mg PO BEDTIME [facility] Last Admin: 06/24/18 21:12 Dose: Not Given Ptom Lorazepam [ (Ativan] 2 Mg) 2 mg PO BEDTIME [facility] Last Admin: 06/24/18 21:13 Dose: Not Given Ptom Quetiapine (300mg Tab) 300 mg PO BEDTIME [facility] Last Admin: 06/24/18 19:49 Dose: 300 mg Oxycodone HCl (Oxycodone) 5 mg PO ONETIME ONE Stop: 06/22/18 21:10 Last Admin: 06/22/18 21:18 Dose: 5 mg Pantoprazole Sodium (Protonix) 40 mg PO BID [facility] Last Admin: 06/24/18 19:51 Dose: 40 mg Quetiapine Fumarate (Seroquel) 300 mg PO BEDTIME [facility] Tuberculin PPD (Aplisol) 5 unit IDERM ONETIME ONE Stop: 06/24/18 13:37 Last Admin: 06/24/18 14:01 Dose: 5 unit - Exam General: Alert, Oriented HEENT: Mucous Membr. Moist/[place] Neck: Supple Lungs: Clear to Auscultation, Normal Respiratory Effort Cardiovascular: Regular Rate, Regular Rhythm GI/Abdominal Exam: Normal Bowel Sounds, Soft, Non-Tender Extremities: Arm Pain Skin: Ecchymosis (upper arm is bruised ) Neurological: No New Focal Deficit - Problem List & Annotations (1) Fracture, humerus closed SNOMED Code(s): 30443852 Code(s): S42.309A - UNSP FRACTURE OF SHAFT OF HUMERUS, UNSP ARM, INIT Status: Acute Priority: High Current Visit: Yes Qualifiers: Encounter type: initial encounter Humerus Location: proximal Fracture alignment: nondisplaced Laterality: right - Problem List Review Problem List Initiated/Reviewed/Updated: Yes - My Orders Last 24 Hours: My Active Orders 06/25/18 20:00 QUEtiapine [SEROquel] 300 mg PO BEDTIME - Assessment Assessment:: Right Humeral Fracture - Plan Plan:: Patient complains of having muscle spasms in her upper arm at times. Is wearing immobilizer. Bruising noted to right upper arm. Blood sugars running high around 300. Patient relates that she takes between 20-65 units of Novolog at home depending on her blood sugars. Will continue to use 30 units at mealtime, Levemir 160 units at bedtime. Is using oxycodone for pain. Flexeril for muscle spasm. Did contact Dr. Joya regarding xrays/plan. He has reviewed the xrays. Will see her on Saturday for evaluation. Keep immobilizer on at this point, pain control. Possible discharge home tomorrow. 06-24-2018 Patient having more pain this am. States slept well through the night and got behind on pain meds so "is suffering this am". Bruising is more prominent today. Immobilizer intact. Is still requiring help with all cares as is unsteady and unable to toilet, bathe without assistance due to pain and immobility. Transferred to inpatient care due to vulnerable adult and inability to care for self. Will see Dr. Joya tomorrow for evaluation. [facility]able [facility] to [facility] for [facility] stay for assistance with cares, standby assistance for transfers due to being unsteady, monitoring blood sugars as is vulnerable adult , no family available to provide care and lives alone. 06-25-2018 Patient sitting up at edge of bed. States tolerates the pain if meds given every 4-6 hours and she "doesn't get behind". Immobilizer intact. No other complaints. Blood sugars are running between 140s to 250s, receives Novolog 30 units with meals at this point. Will see Dr. Joya this afternoon. Follow up with any recommendations from him after appointment. Probable discharge to [facility] tomorrow or Saturday.
[2018-06-25] MEDS: QUEtiapine 100 MG Tab PO SCH (19:33)
[2018-06-25] MEDS: atorvaSTATin 20 MG Tab PO SCH (19:34)
[2018-06-25] MEDS: LORazepam 0.5 MG Tab PO SCH (19:34)
[2018-06-25] MEDS: Citalopram 10 MG Tab PO SCH (19:34)
[2018-06-25] MEDS: Insulin Glarg,Human.Rec.Analog 100 UNIT/ML ML SUBCUT SCH (19:38)
[2018-06-26] MEDS: oxyCODONE 5 MG Tab PO PRN ×3 (05:58→19:35)
[2018-06-26] MEDS: Pantoprazole 40 MG Tab.CR PO SCH ×2 (06:00→20:02)
[2018-06-26] MEDS: Gabapentin 100 MG Cap PO SCH ×2 (07:57→19:34)
[2018-06-26] MEDS: Metoprolol Succinate 25 MG Tab.ER PO SCH (07:57)
[2018-06-26] MEDS: Losartan 25 MG Tab PO SCH (07:57)
[2018-06-26] MEDS: Cyclobenzaprine 10 MG Tab PO PRN ×3 (07:58→23:51)
[2018-06-26] MEDS: Loratadine 10 MG Tab PO SCH (07:58)
[2018-06-26] MEDS: Formoterol/Mometasone 200-5 MCG 8.8 GM Inhaler IH SCH ×2 (07:58→19:36)
[2018-06-26] MEDS: Furosemide 40 MG Tab PO SCH ×2 (07:58→16:03)
[2018-06-26] MEDS: LINAGLIPTIN 5 MG PO SCH (07:59)
[2018-06-26] MEDS: FERROUS SULFATE 45 MG PO SCH (07:59)
[2018-06-26] MEDS: Insulin Aspart 100 Units/ML 3 ML Pen SUBCUT SCH ×3 (07:59→17:37)
--- NOTE | 2018-06-26 08:30 | PCM.PN ---
- General Info Date of Service: 06/26/18 Admission Dx/Problem (Free Text): Right humerus Fracture Functional Status: Reports: Pain Controlled, Tolerating Diet, Ambulating - Review of Systems General: Reports: Weakness. Denies: Fever, Fatigue HEENT: Reports: No Symptoms Pulmonary: Denies: Shortness of Breath, Cough Cardiovascular: Reports: Edema. Denies: Chest Pain, Lightheadedness Gastrointestinal: Denies: Abdominal Pain, Nausea, Vomiting Genitourinary: Reports: No Symptoms Musculoskeletal: Reports: Shoulder Pain, Arm Pain Skin: Reports: Bruising Neurological: Reports: No Symptoms - Patient Data Vitals - Most Recent: Last Vital Signs Temp 97.3 F 06/26/18 08:00 Pulse 99 06/26/18 08:00 Resp 18 06/26/18 08:00 BP 123/50 L 06/26/18 08:00 Pulse Ox 94 L 06/26/18 08:00 Weight - Most Recent: 220 lb Lab Results Last 24 Hours: Laboratory Results - last 24 hr 06/25/18 06/25/18 06/25/18 Range/Units 11:16 17:10 19:38 POC Glucose 257 H 156 H 258 H (75-105) mg/dl 06/26/18 Range/Units 07:16 POC Glucose 152 H (75-105) mg/dl Med Orders - Current: Current Medications Acetaminophen (Tylenol) 650 mg PO Q6H PRN PRN Reason: Pain (mild 1-3) Last Admin: 06/24/18 19:50 Dose: 650 mg Albuterol (Ventolin Hfa) 0 gm INH Q4H PRN PRN Reason: Dyspnea Atorvastatin Calcium (Lipitor) 20 mg PO BEDTIME [facility] Last Admin: 06/25/18 19:34 Dose: 20 mg Citalopram Hydrobromide (Celexa) 40 mg PO BEDTIME [facility] Last Admin: 06/25/18 19:34 Dose: 40 mg Cyclobenzaprine HCl (Flexeril) 10 mg PO TID PRN PRN Reason: muscle spasms Last Admin: 06/26/18 07:58 Dose: 10 mg Furosemide (Lasix) 40 mg PO BIDDIURETIC [facility] Last Admin: 06/26/18 07:58 Dose: 40 mg Gabapentin (Neurontin) 100 mg PO BID [facility] Last Admin: 06/26/18 07:57 Dose: 100 mg Insulin Aspart (Novolog) 30 unit SUBCUT TIDMEALS [facility] Last Admin: 06/26/18 07:59 Dose: 30 units Insulin Glargine (Lantus) 160 unit SUBCUT BEDTIME [facility] Last Admin: 06/25/18 19:38 Dose: 160 units Loratadine (Claritin) 10 mg PO DAILY [facility] Last Admin: 06/26/18 07:58 Dose: 10 mg Lorazepam (Ativan) 2 mg PO BEDTIME [facility] Last Admin: 06/25/18 19:34 Dose: 2 mg Losartan Potassium (Cozaar) 25 mg PO DAILY [facility] Last Admin: 06/26/18 07:57 Dose: 25 mg Metoprolol Succinate (Toprol Xl) 25 mg PO DAILY [facility] Last Admin: 06/26/18 07:57 Dose: 25 mg Mometasone Furoate/Formoterol Fumar (Dulera 200-5 Mcg) 2 puff IH BID [facility] Last Admin: 06/26/18 07:58 Dose: 2 puff Ptom Ferrous (Sulfate 45 Mg) 45 mg PO DAILY [facility] Last Admin: 06/26/18 07:59 Dose: 45 mg Ptom Linagliptin ([Tradjenta] 5 Mg) 5 mg PO DAILY [facility] Last Admin: 06/26/18 07:59 Dose: 5 mg Oxycodone HCl (Oxycodone) 5 mg PO Q6H PRN PRN Reason: Pain (moderate 4-6) Last Admin: 06/26/18 05:58 Dose: 5 mg Pantoprazole Sodium (Protonix) 40 mg PO BID@0700,2100 [facility] Last Admin: 06/26/18 06:00 Dose: 40 mg Quetiapine Fumarate (Seroquel) 300 mg PO BEDTIME [facility] Last Admin: 06/25/18 19:33 Dose: 300 mg Discontinued Medications Atorvastatin Calcium (Lipitor) Confirm Administered Dose 40 mg .ROUTE .STK-MED ONE Stop: 06/24/18 21:22 Last Admin: 06/24/18 21:25 Dose: Not Given Citalopram Hydrobromide (Celexa) Confirm Administered Dose 20 mg .ROUTE .STK- MED ONE Stop: 06/24/18 21:22 Last Admin: 06/24/18 21:25 Dose: Not Given Citalopram Hydrobromide (Celexa) Confirm Administered Dose 20 mg .ROUTE .[facility]- [facility] ONE Stop: 06/24/18 21:31 Last Admin: 06/24/18 21:36 Dose: Not Given Furosemide (Lasix) 40 mg PO BID [facility] Last Admin: 06/24/18 08:12 Dose: 40 mg Lorazepam (Ativan) Confirm Administered Dose 2 mg .ROUTE .[facility] ONE Stop: 06/24/18 21:22 Last Admin: 06/24/18 21:25 Dose: Not Given Ptom Atorvastatin [ Lipitor] 20 Mg 20 mg PO BEDTIME [facility] Last Admin: 06/24/18 21:12 Dose: Not Given Ptom Cetirizine ([Zyrtec] 10 Mg) 10 mg PO DAILY [facility] Last Admin: 06/24/18 08:11 Dose: 10 mg Ptom Citalopram Hydrobromide [Celexa ] 40 Mg 40 mg PO BEDTIME [facility] Last Admin: 06/24/18 21:12 Dose: Not Given Ptom Lorazepam [ (Ativan] 2 Mg) 2 mg PO BEDTIME [facility] Last Admin: 06/24/18 21:13 Dose: Not Given Ptom Quetiapine (300mg Tab) 300 mg PO BEDTIME [facility] Last Admin: 06/24/18 19:49 Dose: 300 mg Oxycodone HCl (Oxycodone) 5 mg PO ONETIME ONE Stop: 06/22/18 21:10 Last Admin: 06/22/18 21:18 Dose: 5 mg Pantoprazole Sodium (Protonix) 40 mg PO BID [facility] Last Admin: 06/24/18 19:51 Dose: 40 mg Quetiapine Fumarate (Seroquel) 300 mg PO BEDTIME [facility] Tuberculin PPD (Aplisol) 5 unit IDERM ONETIME ONE Stop: 06/24/18 13:37 Last Admin: 06/24/18 14:01 Dose: 5 unit - Exam General: Alert, Oriented HEENT: Mucous Membr. Moist/[place] Neck: Supple Lungs: Clear to Auscultation, Normal Respiratory Effort Cardiovascular: Regular Rate, Regular Rhythm GI/Abdominal Exam: Normal Bowel Sounds, Soft, Non-Tender Extremities: Arm Pain (Has immobilizer on right shoulder; bruising to upper arm. 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) - Problem List & Annotations (1) Fracture, humerus closed SNOMED Code(s): 17981571 Code(s): S42.309A - UNSP FRACTURE OF SHAFT OF HUMERUS, UNSP ARM, INIT Status: Acute Priority: High Current Visit: Yes Qualifiers: Encounter type: initial encounter Humerus Location: proximal Fracture alignment: nondisplaced Laterality: right - Problem List Review Problem List Initiated/Reviewed/Updated: Yes - My Orders Last 24 Hours: My Active Orders 06/25/18 20:00 QUEtiapine [SEROquel] 300 mg PO BEDTIME 06/26/18 08:19 CBC WITH AUTO DIFF [HEME] Routine - Assessment Assessment:: Right Humeral Fracture - Plan Plan:: Patient complains of having muscle spasms in her upper arm at times. Is wearing immobilizer. Bruising noted to right upper arm. Blood sugars running high around 300. Patient relates that she takes between 20-65 units of Novolog at home depending on her blood sugars. Will continue to use 30 units at mealtime, Levemir 160 units at bedtime. Is using oxycodone for pain. Flexeril for muscle spasm. Did contact Dr. Joya regarding xrays/plan. He has reviewed the xrays. Will see her on Saturday for evaluation. Keep immobilizer on at this point, pain control. Possible discharge home tomorrow. 06-24-2018 Patient having more pain this am. States slept well through the night and got behind on pain meds so "is suffering this am". Bruising is more prominent today. Immobilizer intact. Is still requiring help with all cares as is unsteady and unable to toilet, bathe without assistance due to pain and immobility. Transferred to inpatient care due to vulnerable adult and inability to care for self. Will see Dr. Joya tomorrow for evaluation. Probable admission to senior living for short stay for assistance with cares, standby assistance for transfers due to being unsteady, monitoring blood sugars as is vulnerable adult , no family available to provide care and lives alone. 06-25-2018 Patient sitting up at edge of bed. States tolerates the pain if meds given every 4-6 hours and she "doesn't get behind". Immobilizer intact. No other complaints. Blood sugars are running between 140s to 250s, receives Novolog 30 units with meals at this point. Will see Dr. Joya this afternoon. Follow up with any recommendations from him after appointment. Probable discharge to [facility] tomorrow or Saturday. 06-26-2018 Patient stable. Is concerned about her hemoglobin as she has noted more dark, black stools again. Is on iron. Saw Dr. Joya yesterday, no changes made. Will see him again in 2 weeks and have follow up xrays at that time. Blood sugars running between 150-250. Awaiting screening for senior living placement. Recheck CBC today. Continue PT.
[2018-06-26] MEDS ORDERED: Sodium Chloride 0.9% 250 ML IV SCH (10:00)
[2018-06-26] MEDS: LORazepam 0.5 MG Tab PO SCH (19:31)
[2018-06-26] MEDS: QUEtiapine 100 MG Tab PO SCH (19:33)
[2018-06-26] MEDS: atorvaSTATin 20 MG Tab PO SCH (19:34)
[2018-06-26] MEDS: Citalopram 10 MG Tab PO SCH (19:34)
[2018-06-26] MEDS: Acetaminophen 325 MG Tab PO PRN (19:38)
[2018-06-26] MEDS: Insulin Glarg,Human.Rec.Analog 100 UNIT/ML ML SUBCUT SCH (20:02)
[2018-06-27] MEDS: Pantoprazole 40 MG Tab.CR PO SCH (06:39)
[2018-06-27] MEDS: oxyCODONE 5 MG Tab PO PRN (06:39)
[2018-06-27 07:29] VITALS: BP 122/41
[2018-06-27] MEDS: Furosemide 40 MG Tab PO SCH (07:34)
[2018-06-27] MEDS: Gabapentin 100 MG Cap PO SCH (07:34)
[2018-06-27] MEDS: Loratadine 10 MG Tab PO SCH (07:34)
[2018-06-27] MEDS: Losartan 25 MG Tab PO SCH (07:34)
[2018-06-27] MEDS: Metoprolol Succinate 25 MG Tab.ER PO SCH (07:34)
[2018-06-27] MEDS: Formoterol/Mometasone 200-5 MCG 8.8 GM Inhaler IH SCH (07:37)
[2018-06-27] MEDS: FERROUS SULFATE 45 MG PO SCH (07:38)
[2018-06-27] MEDS: LINAGLIPTIN 5 MG PO SCH (07:38)
[2018-06-27] MEDS: Insulin Aspart 100 Units/ML 3 ML Pen SUBCUT SCH (08:52)
[2018-06-27] MEDS: Cyclobenzaprine 10 MG Tab PO PRN (08:55)
--- NOTE | 2018-06-27 10:03 | PCM.DCSUM1 ---
Discharge Summary - Hospital Course Free Text/Narrative:: Patient presented to ER after a fall at home. Had tripped on a groove in the floor and landed on her right side. Found to have a proximal humerus fracture, nondisplaced. Was admitted to observation as unable to care for self at home. She lives alone with no family available to provide 24 hour care. Immobilizer was placed to right arm. Started on Percocet and Flexeril for pain/muscle spasms. Diagnosis: Stroke: No Modified Patt Scale: No Symptoms at All Modified Catarina Scale Score: 0 - Discharge Data Discharge Date: 06/27/18 Discharge Disposition: DC/Tfer W/I Hosp To Swing 61 Condition: Good - Discharge Diagnosis/Problem(s) (1) Fracture, humerus closed SNOMED Code(s): 37309637 ICD Code: S42.309A - UNSP FRACTURE OF SHAFT OF HUMERUS, UNSP ARM, INIT Status: Acute Priority: High Qualifiers: Encounter type: initial encounter Humerus Location: proximal Fracture alignment: nondisplaced Laterality: right - Patient Summary/Data Complications: none Consults: Consultations 06/23/18 00:30 Consult to Physical Therapy [PT Evaluation and Treatment] [CONS] Routine 06/23/18 09:14 Consult to Case Management/Behavior Specialist [CONS] Routine Hospital Course: Patient stable. Does have times where pain is more intense, rates at an 8. Covered with Percocet and Flexeril. Does ambulate well with standby assist as balance is somewhat unsteady with staff and PT. Did see Dr. Joya on Saturday for ortho consult on fracture. No changes made. Will continue with Immobilizer and repeat xrays in 2 weeks. Patient unable to return home while balance is unsteady, only has use of nondominant hand and does not have any family to care for her. 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 Hemoglobin 6.9 so was transfused 2 units of PRBC. Plan is to transfer to [facility] once screening approved for ongoing care while fracture heals. Recheck CBC on Saturday. - Patient Instructions Diet: Diabetic Diet Activity: As Tolerated - Discharge Plan *PRESCRIPTION DRUG MONITORING PROGRAM REVIEWED*: Not Applicable *COPY OF PRESCRIPTION DRUG MONITORING REPORT IN PATIENT JESE: Not Applicable Home Medications: Home Meds LORazepam [Ativan] 2 mg PO BEDTIME 10/21/13 [History] QUEtiapine [SEROquel] 300 mg PO BEDTIME 10/21/13 [History] atorvaSTATin [Lipitor] 20 mg PO BEDTIME 10/21/13 [History] Citalopram Hydrobromide [Celexa] 40 mg PO BEDTIME 10/22/13 [History] Cyclobenzaprine [Flexeril] 10 mg PO TID PRN 10/22/13 [History] Albuterol [Proair HFA] 2 puff INH Q4H PRN 09/09/14 [History] Budesonide/Formoterol [Symbicort 160-4.5 MCG] 2 puff INH BID 09/09/14 [History] Cetirizine [ZyrTEC] 10 mg PO DAILY 09/09/14 [History] Furosemide [Lasix] 40 mg PO BID 09/09/14 [History] Losartan Potassium 25 mg PO DAILY 09/09/14 [History] Gabapentin [Neurontin] 100 mg PO BID 04/05/17 [History] Insulin Aspart [Novolog Flexpen] 50 units SUBCUT TIDMEALS 04/05/17 [History] Linagliptin [Tradjenta] 5 mg PO DAILY 04/05/17 [History] traMADol HCl [Tramadol HCl] 50 mg PO Q6H PRN 04/05/17 [History] Metoprolol Succinate [Toprol Xl] 25 mg PO DAILY 04/06/17 [History] Pantoprazole Sodium 40 mg PO BID 04/25/17 [History] Insulin Glargine,Hum.Rec.Anlog [Basaglar Kwikpen U-100] 160 unit SUBCUT BEDTIME 03/20/18 [History] Ferrous Sulfate [Slow Fe] 45 mg PO DAILY 06/22/18 [History] Forms: ED Department Discharge Referrals: Jill Thapa PA [Primary Care Provider] - - Discharge Summary/Plan Comment DC Time >30 min.: No Discharge Summary/Plan Comment: Transfer to swing bed for ongoing PT and nursing assist due to humerus fracture. Unable to care for self, vulnerable adult, frequent falls. - General Info Date of Service: 06/27/18 Admission Dx/Problem (Free Text: Right humerus Fracture Functional Status: Reports: Tolerating Diet, Ambulating. Denies: Pain Controlled - Review of Systems General: Reports: Fatigue HEENT: Reports: No Symptoms Pulmonary: Denies: Shortness of Breath, Cough Cardiovascular: Denies: Chest Pain, Lightheadedness Gastrointestinal: Reports: Melena. Denies: Abdominal Pain, Nausea, Vomiting Genitourinary: Reports: No Symptoms Musculoskeletal: Reports: Shoulder Pain, Arm Pain, Joint Pain Skin: Reports: Bruising Neurological: Reports: No Symptoms - Patient Data Vitals - Most Recent: Last Vital Signs Temp 99.2 F 06/27/18 07:28 Pulse 91 06/27/18 07:34 Resp 16 06/27/18 07:28 BP 122/41 L 06/27/18 07:34 Pulse Ox 94 L 06/27/18 07:28 Weight - Most Recent: 220 lb I&O - Last 24 hours: Intake & Output 06/26/18 06/27/18 06/27/18 22:59 06:59 14:59 Intake Total 350 Balance 350 Lab Results - Last 24 hrs: Laboratory Results - last 24 hr 06/26/18 06/26/18 06/26/18 Range/Units 08:30 11:27 17:21 WBC (5.0-10.0) 10^3/uL RBC (4.00-5.50) 10^6/uL Hgb (12.0-16.0) g/dL Hct (37.0-47.0) % MCV (82.0-94.0) fL MCH (27.0-32.0) pg MCHC (33.0-38.0) g/dL RDW Coeff of Davis (11.0-15.0) % Plt Count (150-400) 10^3/uL Neut % (Auto) (35-85) % Lymph % (Auto) (10-55) % Oliver % (Auto) (0-16) % Eos % (Auto) (0-5) % Baso % (Auto) (0-3) % Neut # (Auto) (1.80-7.00) 10^3/uL Lymph # (Auto) (1.00-4.80) 10^3/uL Oliver # (Auto) (0.00-0.80) 10^3/uL Eos # (Auto) (0.00-0.45) 10^3/uL Baso # (Auto) 10^3/uL POC Glucose 197 H 209 H (75-105) mg/dl Blood Type A POSITIVE Gel Antibody Screen Negative Crossmatch See Detail 06/26/18 06/27/18 06/27/18 Range/Units 19:44 07:22 07:25 WBC 4.7 L (5.0-10.0) 10^3/uL RBC 3.15 L (4.00-5.50) 10^6/uL Hgb 8.2 L (12.0-16.0) g/dL Hct 27.7 L (37.0-47.0) % MCV 87.9 (82.0-94.0) fL MCH 26.0 L (27.0-32.0) pg MCHC 29.6 L (33.0-38.0) g/dL RDW Coeff of Davis 17.5 H (11.0-15.0) % Plt Count 151 (150-400) 10^3/uL Neut % (Auto) 61.1 (35-85) % Lymph % (Auto) 24.1 (10-55) % Oliver % (Auto) 10.6 (0-16) % Eos % (Auto) 3.8 (0-5) % Baso % (Auto) 0.4 (0-3) % Neut # (Auto) 2.89 (1.80-7.00) 10^3/uL Lymph # (Auto) 1.14 (1.00-4.80) 10^3/uL Oliver # (Auto) 0.50 (0.00-0.80) 10^3/uL Eos # (Auto) 0.18 (0.00-0.45) 10^3/uL Baso # (Auto) 0.02 10^3/uL POC Glucose 167 H 162 H (75-105) mg/dl Blood Type Gel Antibody Screen Crossmatch Med Orders - Current: Current Medications Discontinued Medications Acetaminophen (Tylenol) 650 mg PO Q6H PRN PRN Reason: Pain (mild 1-3) Last Admin: 06/26/18 19:38 Dose: 650 mg Albuterol (Ventolin Hfa) 0 gm INH Q4H PRN PRN Reason: Dyspnea Atorvastatin Calcium (Lipitor) 20 mg PO BEDTIME GARRY Last Admin: 06/26/18 19:34 Dose: 20 mg Atorvastatin Calcium (Lipitor) Confirm Administered Dose 40 mg .ROUTE .STK-MED ONE Stop: 06/24/18 21:22 Last Admin: 06/24/18 21:25 Dose: Not Given Citalopram Hydrobromide (Celexa) 40 mg PO BEDTIME [facility] Last Admin: 06/26/18 19:34 Dose: 40 mg Citalopram Hydrobromide (Celexa) Confirm Administered Dose 20 mg .ROUTE .STK- MED ONE Stop: 06/24/18 21:22 Last Admin: 06/24/18 21:25 Dose: Not Given Citalopram Hydrobromide (Celexa) Confirm Administered Dose 20 mg .ROUTE .STK- MED ONE Stop: 06/24/18 21:31 Last Admin: 06/24/18 21:36 Dose: Not Given Cyclobenzaprine HCl (Flexeril) 10 mg PO TID PRN PRN Reason: muscle spasms Last Admin: 06/27/18 08:55 Dose: 10 mg Furosemide (Lasix) 40 mg PO BID [facility] Last Admin: 06/24/18 08:12 Dose: 40 mg Furosemide (Lasix) 40 mg PO BIDDIURETIC [facility] Last Admin: 06/27/18 07:34 Dose: 40 mg Gabapentin (Neurontin) 100 mg PO BID [facility] Last Admin: 06/27/18 07:34 Dose: 100 mg Sodium Chloride (Normal Saline) 250 mls @ 50 mls/hr IV ASDIRECTED [facility] Last Admin: 06/26/18 10:19 Dose: 50 mls/hr Insulin Aspart (Novolog) 30 unit SUBCUT TIDMEALS [facility] Last Admin: 06/27/18 08:52 Dose: 30 units Insulin Glargine (Lantus) 160 unit SUBCUT BEDTIME [facility] Last Admin: 06/26/18 20:02 Dose: 160 units Loratadine (Claritin) 10 mg PO DAILY [facility] Last Admin: 06/27/18 07:34 Dose: 10 mg Lorazepam (Ativan) 2 mg PO BEDTIME [facility] Last Admin: 06/26/18 19:31 Dose: 2 mg Lorazepam (Ativan) Confirm Administered Dose 2 mg .ROUTE .STK-MED ONE Stop: 06/24/18 21:22 Last Admin: 06/24/18 21:25 Dose: Not Given Losartan Potassium (Cozaar) 25 mg PO DAILY [facility] Last Admin: 06/27/18 07:34 Dose: 25 mg Metoprolol Succinate (Toprol Xl) 25 mg PO DAILY [facility] Last Admin: 06/27/18 07:34 Dose: 25 mg Mometasone Furoate/Formoterol Fumar (Dulera 200-5 Mcg) 2 puff IH BID [facility] Last Admin: 06/27/18 07:37 Dose: 2 puff Ptom Atorvastatin [ Lipitor] 20 Mg 20 mg PO BEDTIME [facility] Last Admin: 06/24/18 21:12 Dose: Not Given Ptom Cetirizine ([Zyrtec] 10 Mg) 10 mg PO DAILY [facility] Last Admin: 06/24/18 08:11 Dose: 10 mg Ptom Citalopram Hydrobromide [Celexa ] 40 Mg 40 mg PO BEDTIME [facility] Last Admin: 06/24/18 21:12 Dose: Not Given Ptom Ferrous (Sulfate 45 Mg) 45 mg PO DAILY [facility] Last Admin: 06/27/18 07:38 Dose: 45 mg Ptom Lorazepam [ (Ativan] 2 Mg) 2 mg PO BEDTIME [facility] Last Admin: 06/24/18 21:13 Dose: Not Given Ptom Linagliptin ([Tradjenta] 5 Mg) 5 mg PO DAILY [facility] Last Admin: 06/27/18 07:38 Dose: 5 mg Ptom Quetiapine (300mg Tab) 300 mg PO BEDTIME [facility] Last Admin: 06/24/18 19:49 Dose: 300 mg Oxycodone HCl (Oxycodone) 5 mg PO ONETIME ONE Stop: 06/22/18 21:10 Last Admin: 06/22/18 21:18 Dose: 5 mg Oxycodone HCl (Oxycodone) 5 mg PO Q6H PRN PRN Reason: Pain (moderate 4-6) Last Admin: 06/27/18 06:39 Dose: 5 mg Pantoprazole Sodium (Protonix) 40 mg PO BID [facility] Last Admin: 06/24/18 19:51 Dose: 40 mg Pantoprazole Sodium (Protonix) 40 mg PO BID@0700,2100 [facility] Last Admin: 06/27/18 06:39 Dose: 40 mg Quetiapine Fumarate (Seroquel) 300 mg PO BEDTIME [facility]ARRY Quetiapine Fumarate (Seroquel) 300 mg PO BEDTIME [facility]ARR[facility] Last Admin: 06/26/18 19:33 Dose: 300 mg Tuberculin PPD (Aplisol) 5 unit IDERM ONETIME ONE Stop: 06/24/18 13:37 Last Admin: 06/24/18 14:01 Dose: 5 unit - Exam General: Reports: Alert, Oriented HEENT: Reports: Mucous Membr. Moist/[place] Neck: Reports: Supple Lungs: Reports: Clear to Auscultation, Normal Respiratory Effort Cardiovascular: Reports: Regular Rate, Regular Rhythm GI/Abdominal Exam: Normal Bowel Sounds Extremities: Joint Swelling, Arm Pain (right upper arm has swelling and bruising. Immobilizer intact) Skin: Reports: Warm, Dry Neurological: Reports: No New Focal Deficit
== END 2018-06-27 08:58 | disposition swing bed (61) | DRG 563 ==
LOC: CC.ED 20:56 → UNDOADMOB 06-23 00:28 → CC.ED 06-23 00:28 → INTOOBSV 06-23 00:28 → CC.MS 06-23 00:28 → OBSVTOIN 06-23 00:28 → UNDOADMOB 06-23 08:45 → CC.MS 06-23 08:45 → OBSVTOIN 06-23 08:45 → INTOOBSV 06-23 08:45 → OBSVTOIN 06-24 08:17 → CC.MS 06-24 10:23 → UNDODISIN 06-27 08:58
PROVIDERS: ADMIT Nurse Practitioner Family; ATTEND Family Medicine
PROC: 30233N1 Transfusion of Nonautologous Red Blood Cells into Peripheral Vein, Percutaneous Approach (ICD-10-PCS; principal; 2018-06-26)
DX: S42.201A Unspecified fracture of upper end of right humerus, initial encounter for closed fracture (principal); Z68.41 Body mass index [BMI] 40.0-44.9, adult; W01.0XXA Fall on same level from slipping, tripping and stumbling without subsequent striking against object, initial encounter; Y92.009 Unspecified place in unspecified non-institutional (private) residence as the place of occurrence of the external cause; Z88.8 Allergy status to other drugs, medicaments and biological substances; E05.00 Thyrotoxicosis with diffuse goiter without thyrotoxic crisis or storm; K31.819 Angiodysplasia of stomach and duodenum without bleeding; I10 Essential (primary) hypertension; J45.909 Unspecified asthma, uncomplicated; E66.01 Morbid (severe) obesity due to excess calories; D64.9 Anemia, unspecified; E11.9 Type 2 diabetes mellitus without complications; G89.29 Other chronic pain; D63.8 Anemia in other chronic diseases classified elsewhere; M54.9 Dorsalgia, unspecified; F41.9 Anxiety disorder, unspecified; F32.9 Major depressive disorder, single episode, unspecified; Z91.81 History of falling; Z98.890 Other specified postprocedural states; Z79.899 Other long term (current) drug therapy; Z79.4 Long term (current) use of insulin
CPT/HCPCS: 36415; 70450; 73030; 73060; 73090; 82962 ×4; 85025; 97161; 99219; 99284; A9270 ×33; G0378 ×2; 36430; 86580; 86850; 86900; 86901; 86920; 86922; 97110-GP; 97530-GP; J1815-GY; J7050; P9016

== ENCOUNTER 2018-06-27 08:58 | Inpatient (IN) | payer MEDICAID, MEDICARE ==
[2018-06-27] MEDS ORDERED: Albuterol 8 GM Inhaler INH PRN (09:50)
[2018-06-27] MEDS ORDERED: Sodium Chloride 0.9% 250 ML IV PRN (09:50)
[2018-06-27] MEDS: Insulin Aspart 100 Units/ML 3 ML Pen SUBCUT SCH ×2 (11:58→17:27)
[2018-06-27] MEDS: oxyCODONE 5 MG Tab PO PRN ×2 (12:52→20:03)
[2018-06-27] MEDS: Furosemide 40 MG Tab PO SCH (15:43)
[2018-06-27] MEDS: Cyclobenzaprine 10 MG Tab PO PRN (17:27)
[2018-06-27] MEDS: QUEtiapine 100 MG Tab PO SCH (20:01)
[2018-06-27] MEDS: atorvaSTATin 20 MG Tab PO SCH (20:01)
[2018-06-27] MEDS: Gabapentin 100 MG Cap PO SCH (20:02)
[2018-06-27] MEDS: Citalopram 10 MG Tab PO SCH (20:02)
[2018-06-27] MEDS: LORazepam 0.5 MG Tab PO SCH (20:02)
[2018-06-27] MEDS: Formoterol/Mometasone 200-5 MCG 8.8 GM Inhaler IH SCH (20:04)
[2018-06-27] MEDS: Pantoprazole 40 MG Tab.CR PO SCH (20:11)
[2018-06-27] MEDS: Insulin Glarg,Human.Rec.Analog 100 UNIT/ML ML SUBCUT SCH (20:13)
[2018-06-28] MEDS: Furosemide 40 MG Tab PO SCH ×2 (07:51→16:12)
[2018-06-28] MEDS: Pantoprazole 40 MG Tab.CR PO SCH ×2 (07:51→20:00)
[2018-06-28] MEDS: Metoprolol Succinate 25 MG Tab.ER PO SCH (07:51)
[2018-06-28] MEDS: Loratadine 10 MG Tab PO SCH (07:51)
[2018-06-28] MEDS: Gabapentin 100 MG Cap PO SCH ×2 (07:51→19:59)
[2018-06-28] MEDS: Losartan 25 MG Tab PO SCH (07:52)
[2018-06-28] MEDS: FERROUS SULFATE 45 MG PO SCH (07:52)
[2018-06-28] MEDS: oxyCODONE 5 MG Tab PO PRN ×3 (07:52→20:00)
[2018-06-28] MEDS: Formoterol/Mometasone 200-5 MCG 8.8 GM Inhaler IH SCH ×2 (07:53→20:03)
[2018-06-28] MEDS: Insulin Aspart 100 Units/ML 3 ML Pen SUBCUT SCH ×3 (07:53→17:41)
[2018-06-28] MEDS: LINAGLIPTIN 5 MG PO SCH (07:53)
[2018-06-28] MEDS: Cyclobenzaprine 10 MG Tab PO PRN ×3 (07:56→23:43)
[2018-06-28] MEDS: Citalopram 10 MG Tab PO SCH (19:59)
[2018-06-28] MEDS: QUEtiapine 100 MG Tab PO SCH (19:59)
[2018-06-28] MEDS: LORazepam 0.5 MG Tab PO SCH (20:00)
[2018-06-28] MEDS: atorvaSTATin 20 MG Tab PO SCH (20:00)
[2018-06-28] MEDS: Insulin Glarg,Human.Rec.Analog 100 UNIT/ML ML SUBCUT SCH (20:01)
[2018-06-28] MEDS: Acetaminophen 325 MG Tab PO PRN (23:43)
[2018-06-29] MEDS: Furosemide 40 MG Tab PO SCH ×2 (07:54→16:15)
[2018-06-29] MEDS: LINAGLIPTIN 5 MG PO SCH (07:54)
[2018-06-29] MEDS: Formoterol/Mometasone 200-5 MCG 8.8 GM Inhaler IH SCH ×2 (07:54→20:00)
[2018-06-29] MEDS: Loratadine 10 MG Tab PO SCH (07:55)
[2018-06-29] MEDS: oxyCODONE 5 MG Tab PO PRN ×3 (07:55→20:23)
[2018-06-29] MEDS: Gabapentin 100 MG Cap PO SCH ×2 (07:55→19:59)
[2018-06-29] MEDS: Pantoprazole 40 MG Tab.CR PO SCH ×2 (07:55→20:24)
[2018-06-29] MEDS: Metoprolol Succinate 25 MG Tab.ER PO SCH (07:55)
[2018-06-29] MEDS: Cyclobenzaprine 10 MG Tab PO PRN ×2 (07:55→16:15)
[2018-06-29] MEDS: Losartan 25 MG Tab PO SCH (07:55)
[2018-06-29] MEDS: Insulin Aspart 100 Units/ML 3 ML Pen SUBCUT SCH ×3 (07:56→17:22)
[2018-06-29] MEDS: FERROUS SULFATE 45 MG PO SCH (07:56)
[2018-06-29] MEDS: atorvaSTATin 20 MG Tab PO SCH (19:58)
[2018-06-29] MEDS: QUEtiapine 100 MG Tab PO SCH (19:59)
[2018-06-29] MEDS: LORazepam 0.5 MG Tab PO SCH (19:59)
[2018-06-29] MEDS: Citalopram 10 MG Tab PO SCH (19:59)
[2018-06-29] MEDS: Acetaminophen 325 MG Tab PO PRN (20:02)
[2018-06-29] MEDS: Insulin Glarg,Human.Rec.Analog 100 UNIT/ML ML SUBCUT SCH (20:07)
[2018-06-30] MEDS: Cyclobenzaprine 10 MG Tab PO PRN ×2 (02:05→09:58)
[2018-06-30] MEDS: oxyCODONE 5 MG Tab PO PRN ×2 (02:05→08:01)
[2018-06-30] MEDS: Pantoprazole 40 MG Tab.CR PO SCH (07:17)
[2018-06-30] MEDS: Losartan 25 MG Tab PO SCH (07:33)
[2018-06-30] MEDS: Loratadine 10 MG Tab PO SCH (07:33)
[2018-06-30] MEDS: Gabapentin 100 MG Cap PO SCH (07:34)
[2018-06-30] MEDS: Furosemide 40 MG Tab PO SCH (07:34)
[2018-06-30] MEDS: Metoprolol Succinate 25 MG Tab.ER PO SCH (07:34)
[2018-06-30] MEDS: FERROUS SULFATE 45 MG PO SCH (07:35)
[2018-06-30] MEDS: LINAGLIPTIN 5 MG PO SCH (07:35)
[2018-06-30 07:36] VITALS: BP 126/64
[2018-06-30] MEDS: Formoterol/Mometasone 200-5 MCG 8.8 GM Inhaler IH SCH (07:36)
[2018-06-30] MEDS: Insulin Aspart 100 Units/ML 3 ML Pen SUBCUT SCH ×2 (08:00→12:40)
--- NOTE | 2018-06-30 20:05 | PCM.DCSUM1 ---
Discharge Summary - Hospital Course Free Text/Narrative:: Patient was admitted swing bed from acute inpatient for ongoing physical therapy , nursing assistance as lives alone and unable to care for self or manage pain. Patient does have history of falls. Tripped over a groove in her floor at home. Suffered proximal humerus fracture. Did see Dr. Joya for ortho consult, no surgery needed. Continues to wear immobilizer. Has been tolerating pain with use of Percocet and Flexeril. Ambulating about with staff and PT. Awaiting care home bed and screening due to history of anxiety and depression. Diagnosis: Stroke: No Modified [place] Scale: No Symptoms at All Modified [place]oga Scale Score: 0 - Discharge Data Discharge Date: 06/30/18 Discharge Disposition: DC/Tfer to [facility] Condition: Good - Patient Summary/Data Complications: none Consults: Consultations 06/27/18 09:50 Consult to Case Management/Level Glass Vial Filler [CONS] Routine Consult to Physical Therapy [PT Evaluation and Treatment] [CONS] Routine Hospital Course: Patient has done well. Pain controlled with Percocet and improving. Wearing immobilizer. Bruising starting to heal to right upper arm. Is ambulating with PT, steady. Blood sugars in range from 140s to 270s range. She does take 160 units of Levemir at HS, 30 units at meal time. Will transfer to [facility] for ongoing physical therapy until able to resume caring for self at home alone. - Patient Instructions Diet: Diabetic Diet Activity: As Tolerated - Discharge Plan *PRESCRIPTION DRUG MONITORING PROGRAM REVIEWED*: No *COPY OF PRESCRIPTION DRUG MONITORING REPORT IN PATIENT JESE: No Prescriptions/Med Rec: Insulin Aspart [NovoLOG] 35 unit SUBCUT TIDMEALS #1 pen oxyCODONE 5 mg PO Q6H PRN #90 tablet PRN Reason: Pain (Moderate 4-6) Home Medications: Home Meds LORazepam [Ativan] 2 mg PO BEDTIME 10/21/13 [History] QUEtiapine [SEROquel] 300 mg PO BEDTIME 10/21/13 [History] atorvaSTATin [Lipitor] 20 mg PO BEDTIME 10/21/13 [History] Citalopram Hydrobromide [Celexa] 40 mg PO BEDTIME 10/22/13 [History] Cyclobenzaprine [Flexeril] 10 mg PO TID PRN 10/22/13 [History] Albuterol [Proair HFA] 2 puff INH Q4H PRN 09/09/14 [History] Budesonide/Formoterol [Symbicort 160-4.5 MCG] 2 puff INH BID 09/09/14 [History] Cetirizine [ZyrTEC] 10 mg PO DAILY 09/09/14 [History] Furosemide [Lasix] 40 mg PO BID 09/09/14 [History] Losartan Potassium 25 mg PO DAILY 09/09/14 [History] Gabapentin [Neurontin] 100 mg PO BID 04/05/17 [History] Insulin Aspart [Novolog Flexpen] 50 units SUBCUT TIDMEALS 04/05/17 [History] Linagliptin [Tradjenta] 5 mg PO DAILY 04/05/17 [History] traMADol HCl [Tramadol HCl] 50 mg PO Q6H PRN 04/05/17 [History] Metoprolol Succinate [Toprol Xl] 25 mg PO DAILY 04/06/17 [History] Pantoprazole Sodium 40 mg PO BID 04/25/17 [History] Insulin Glargine,Hum.Rec.Anlog [Basaglar Kwikpen U-100] 160 unit SUBCUT BEDTIME 03/20/18 [History] Ferrous Sulfate [Slow Fe] 45 mg PO DAILY 06/22/18 [History] Insulin Aspart [NovoLOG] 35 unit SUBCUT TIDMEALS #1 pen 06/30/18 [Rx] oxyCODONE 5 mg PO Q6H PRN #90 tablet 06/30/18 [Rx] - Discharge Summary/Plan Comment DC Time >30 min.: Yes Discharge Summary/Plan Comment: Discharge to [facility] Continue usual meds Increase Novolog to 35 umits at mealtime Percocet for pain Flexeril for muscle spasms. time spent with patient 20 minutes Time spent for orders 15 minutes Time for documentation 15 minutes - General Info Date of Service: 06/30/18 Admission Dx/Problem (Free Text: Humerus Fracture, Closed Functional Status: Reports: Pain Controlled, Tolerating Diet, Ambulating - Review of Systems General: Reports: Weakness HEENT: Reports: No Symptoms Pulmonary: Denies: Shortness of Breath, Cough Cardiovascular: Denies: Chest Pain, Edema, Lightheadedness Gastrointestinal: Denies: Abdominal Pain, Nausea, Vomiting Genitourinary: Reports: No Symptoms Musculoskeletal: Reports: Shoulder Pain, Arm Pain Skin: Reports: Bruising Neurological: Reports: No Symptoms Psychiatric: Reports: No Symptoms - Patient Data Vitals - Most Recent: Last Vital Signs Temp 98.8 F 06/30/18 07:38 Pulse 95 06/30/18 07:38 Resp 20 06/30/18 07:38 BP 126/64 06/30/18 07:38 Pulse Ox 96 06/30/18 07:38 Weight - Most Recent: 232 lb 2.348 oz Lab Results - Last 24 hrs: Laboratory Results - last 24 hr 06/29/18 06/30/18 Range/Units 20:12 07:32 POC Glucose 189 H 231 H (75-105) mg/dl Med Orders - Current: Current Medications Discontinued Medications Acetaminophen (Tylenol) 650 mg PO Q6H PRN PRN Reason: Pain (mild 1-3) Last Admin: 06/29/18 20:02 Dose: 650 mg Albuterol (Ventolin Hfa) 0 gm INH Q4H PRN PRN Reason: Dyspnea Atorvastatin Calcium (Lipitor) 20 mg PO BEDTIME COUNTS INCLUDE 234 BEDS AT THE [facility] Last Admin: 06/29/18 19:58 Dose: 20 mg Citalopram Hydrobromide (Celexa) 40 mg PO BEDTIME [facility]ARRY Last Admin: 06/29/18 19:59 Dose: 40 mg Cyclobenzaprine HCl (Flexeril) 10 mg PO TID PRN PRN Reason: muscle spasms Last Admin: 06/30/18 09:58 Dose: 10 mg Furosemide (Lasix) 40 mg PO BIDDIURETIC COUNTS INCLUDE 234 BEDS AT THE [facility] Last Admin: 06/30/18 07:34 Dose: 40 mg Gabapentin (Neurontin) 100 mg PO BID COUNTS INCLUDE 234 BEDS AT THE [facility] Last Admin: 06/30/18 07:34 Dose: 100 mg Sodium Chloride (Normal Saline) 250 mls @ 50 mls/hr IV ASDIRECTED PRN PRN Reason: WITH BLOOD INFUSION Insulin Aspart (Novolog) 30 unit SUBCUT TIDMEALS COUNTS INCLUDE 234 BEDS AT THE [facility] Last Admin: 06/30/18 12:40 Dose: Not Given Insulin Glargine (Lantus) 160 unit SUBCUT BEDTIME COUNTS INCLUDE 234 BEDS AT THE [facility] Last Admin: 06/29/18 20:07 Dose: 160 units Loratadine (Claritin) 10 mg PO DAILY [facility]S INCLUDE 234 BEDS AT THE [facility] Last Admin: 06/30/18 07:33 Dose: 10 mg Lorazepam (Ativan) 2 mg PO BEDTIME COUNTS INCLUDE 234 BEDS AT THE [facility] Last Admin: 06/29/18 19:59 Dose: 2 mg Losartan Potassium (Cozaar) 25 mg PO DAILY [facility]S INCLUDE 234 BEDS AT [facility] Last Admin: 06/30/18 07:33 Dose: 25 mg Metoprolol Succinate (Toprol Xl) 25 mg PO DAILY COUNTS INCLUDE 234 BEDS AT THE [facility] Last Admin: 06/30/18 07:34 Dose: 25 mg Mometasone Furoate/Formoterol Fumar (Dulera 200-5 Mcg) 2 puff IH BID COUNTS INCLUDE 234 BEDS AT THE [facility] Last Admin: 06/30/18 07:36 Dose: 2 puff Ptom Ferrous (Sulfate 45 Mg) 45 mg PO DAILY COUNTS INCLUDE 234 BEDS AT THE [facility] Last Admin: 06/30/18 07:35 Dose: 45 mg Ptom Linagliptin ([Tradjenta] 5 Mg) 5 mg PO DAILY COUNTS INCLUDE 234 BEDS AT THE [facility] Last Admin: 06/30/18 07:35 Dose: 5 mg Oxycodone HCl (Oxycodone) 5 mg PO Q6H PRN PRN Reason: Pain (moderate 4-6) Last Admin: 06/30/18 08:01 Dose: 5 mg Pantoprazole Sodium (Protonix) 40 mg PO BID@0700,2100 COUNTS INCLUDE 234 BEDS AT [facility] Last Admin: 06/30/18 07:17 Dose: 40 mg Quetiapine Fumarate (Seroquel) 300 mg PO BEDTIME COUNTS INCLUDE 234 BEDS AT THE [facility] Last Admin: 06/29/18 19:59 Dose: 300 mg - Exam General: Reports: Alert, Oriented HEENT: Reports: Mucous Membr. Moist/[place] Neck: Reports: Supple Lungs: Reports: Clear to Auscultation, Normal Respiratory Effort Cardiovascular: Reports: Regular Rate, Regular Rhythm GI/Abdominal Exam: Normal Bowel Sounds, Soft, Non-Tender Skin: Reports: Warm, Dry, Ecchymosis Wound/Incisions: Reports: Healing Well Neurological: Reports: No New Focal Deficit
== END 2018-06-30 12:15 | DRG 561 ==
LOC: CC.MS 08:58
PROVIDERS: ADMIT Family Medicine; ATTEND Family Medicine
DX: S42.201D Unspecified fracture of upper end of right humerus, subsequent encounter for fracture with routine healing (principal); W01.0XXD Fall on same level from slipping, tripping and stumbling without subsequent striking against object, subsequent encounter; Z91.81 History of falling; F41.9 Anxiety disorder, unspecified; F32.9 Major depressive disorder, single episode, unspecified; E05.00 Thyrotoxicosis with diffuse goiter without thyrotoxic crisis or storm; I10 Essential (primary) hypertension; J45.909 Unspecified asthma, uncomplicated; K31.819 Angiodysplasia of stomach and duodenum without bleeding; G89.29 Other chronic pain; M54.9 Dorsalgia, unspecified; E11.9 Type 2 diabetes mellitus without complications; Z79.4 Long term (current) use of insulin; Z79.899 Other long term (current) drug therapy; Z98.890 Other specified postprocedural states
CPT/HCPCS: 73030-RT; 82962; 97010-GP; 97110-GP; 97530-GP; A9270-GY; J1815-GY

== ENCOUNTER 2019-03-22 09:28 | Emergency (ER) | payer MEDICARE, MEDICAID ==
[2019-03-22 09:30] VITALS: BP 117/46; PULSE 79
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
[2019-03-22] MEDS ORDERED: Pantoprazole 40 MG Vial IVPUSH ONE (10:14)
[2019-03-22] MEDS ORDERED: Sodium Chloride 0.9% 1,000 ML IV SCH (10:30)
[2019-03-22] MEDS ORDERED: Pantoprazole 80 MG in Sodium Chloride 0.9% 100 ML IV SCH (10:30)
== END 2019-03-22 11:40 ==
LOC: CC.ED 09:28
DX: K92.2 Gastrointestinal hemorrhage, unspecified (principal); D64.9 Anemia, unspecified; I10 Essential (primary) hypertension; J45.909 Unspecified asthma, uncomplicated; F41.9 Anxiety disorder, unspecified; F32.9 Major depressive disorder, single episode, unspecified; E11.9 Type 2 diabetes mellitus without complications; Z88.5 Allergy status to narcotic agent; Z88.1 Allergy status to other antibiotic agents; Z88.8 Allergy status to other drugs, medicaments and biological substances; Z79.899 Other long term (current) drug therapy; Z79.4 Long term (current) use of insulin
CPT/HCPCS: 36415; 80053; 82272; 85025; 85610; 85730; 96365; 99285; C9113; J7030; J7050; 99284

== ENCOUNTER 2019-05-28 05:50 | Emergency (ER) | payer MEDICARE, MEDICAID ==
[2019-05-28 06:35] LABS: CHLORIDE,CL 101 mEq/L (98-106); SODIUM,NA 140 mEq/L (136-145)
[2019-05-28] MEDS: Alum Hydrox/Mag Hydrox/Simeth 30 ML, Lidocaine 2% 15 ML PO ONE ×2 (06:35)
[2019-05-28] MEDS: Pantoprazole 40 MG Vial IVPUSH ONE (06:39)
[2019-05-28] MEDS: fentaNYL 100 MCG/2 ML SDV IVPUSH PRN (07:27)
[2019-05-28] MEDS: Sodium Chloride 0.9% 100 ML IV ONE (07:33)
[2019-05-28] MEDS: Iopamidol 755 Mg/ML 200 ML Bottle IV ONE (08:21)
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
[2019-05-28 11:28] VITALS: BP 120/50; PULSE 95
== END 2019-05-28 12:05 ==
LOC: CC.ED 05:50
DX: K85.90 Acute pancreatitis without necrosis or infection, unspecified (principal); K31.819 Angiodysplasia of stomach and duodenum without bleeding; R16.2 Hepatomegaly with splenomegaly, not elsewhere classified; D64.9 Anemia, unspecified; I10 Essential (primary) hypertension; J45.909 Unspecified asthma, uncomplicated; E11.9 Type 2 diabetes mellitus without complications; F32.9 Major depressive disorder, single episode, unspecified; Z79.899 Other long term (current) drug therapy; Z79.4 Long term (current) use of insulin; Z88.5 Allergy status to narcotic agent; Z88.1 Allergy status to other antibiotic agents; Z88.8 Allergy status to other drugs, medicaments and biological substances
CPT/HCPCS: 36415; 36430; 74019; 74177; 80053; 82150; 83690; 85025; 86140; 86850; 86900; 86901; 86920; 86922; 96374; 99285-25; A9270-GY; C9113; J3010; J7050; P9016; Q9967

== ENCOUNTER 2020-05-22 13:39 | Emergency (ER) | payer MEDICARE, MEDICAID ==
--- NOTE | 2020-05-22 14:19 | EDM.PDOC ---
ED HPI GENERAL MEDICAL PROBLEM - General Chief Complaint: General Stated Complaint: "Tarry stools" Time Seen by Provider: 05/22/20 14:11 Source of Information: Reports: Patient History Limitations: Reports: No Limitations - History of Present Illness INITIAL COMMENTS - FREE TEXT/NARRATIVE: This patient is a 69 year old female that presents to the ER. 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 She reports her specialist is Dr. Dos Santos in [facility]. She reports that she has orders there not to give blood transfusion unless under 7hgb. She reports that since Saturday the she has been having dark tarry stools. She reports that on Saturday lab was done and her hgb was 7.5, not transfused. She reports on Saturday the she got Iron infusion. She reports she has been feeling generally weak and pale for the last week. She reports she feels like her hgb might below 7. She reports she is only here to get her blood checked and get blood if needed. Patient reports that her latest scope was about 1 month ago and thats about the last time she needed blood transfusion. She denies having dizziness, n, v, fever, chest pain, shortness of breath, passing out, abd pain. She is alert and oriented. Onset Date: 05/16/20 Duration: Day(s): (6) Severity: Mild Improves with: Reports: None Worsens with: Reports: None - Related Data Allergies Allergy/AdvReac Type Severity Reaction Status Date / Time codeine Allergy Hives Verified 05/22/20 14:09 lisinopril Allergy Cannot Verified 05/22/20 14:09 Remember meperidine HCl [From Demerol] Allergy Hives Verified 05/22/20 14:09 montelukast sodium Allergy Cannot Verified 05/22/20 14:09 [From Singulair] Remember morphine Allergy Hives Verified 05/22/20 14:09 niacin Allergy Hives Verified 05/22/20 14:09 pregabalin [From Lyrica] Allergy Cannot Verified 05/22/20 14:09 Remember erythromycin base AdvReac Tachycardia Verified 05/22/20 14:09 Home Meds: Home Meds Citalopram Hydrobromide [Celexa] 40 mg PO DAILY 10/22/13 [History] Albuterol [Proair HFA] 2 puff INH Q4H PRN 09/09/14 [History] Furosemide [Lasix] 40 mg PO DAILY 09/09/14 [History] Gabapentin [Neurontin] 200 mg PO BID 04/05/17 [History] Metoprolol Succinate [Toprol Xl] 25 mg PO DAILY 04/06/17 [History] Pantoprazole Sodium 40 mg PO BID 04/25/17 [History] Insulin Glargine,Hum.Rec.Anlog [Basaglar Kwikpen U-100] 50 unit SUBCUT BEDTIME 03/20/18 [History] Insulin Aspart [NovoLOG] 20 unit SUBCUT TIDMEALS 08/25/18 [History] traMADol [Ultram] 50 mg PO Q6H PRN 07/10/19 [History] Cholecalciferol (Vitamin D3) [Vitamin D3] 1,000 unit PO DAILY 03/09/20 [History] Cyanocobalamin (Vitamin B12) [Vitamin B12] 1,000 mcg PO DAILY 03/09/20 [History] Cyclobenzaprine [Flexeril] 10 mg PO BEDTIME 03/09/20 [History] QUEtiapine [SEROquel] 100 mg PO BEDTIME 03/09/20 [History] Biotin 1 mg PO DAILY 05/20/20 [History] Sucralfate [Carafate] 1 g PO QID 05/20/20 [History] Past Medical History Cardiovascular History: Reports: Hypertension Respiratory History: Reports: Asthma Gastrointestinal History: Reports: GI Bleed, Other (See Below) Other Gastrointestinal History: Gastric antral vascular ectasia (GAVE) Genitourinary History: Reports: None SHOE LACER History: Reports: Other (See Below) Other SHOE LACER History: severe ovarian cysts Musculoskeletal History: Reports: Back Pain, Chronic Psychiatric History: Reports: Anxiety, Depression Endocrine/Metabolic History: Reports: Diabetes, Type II Hematologic History: Reports: Bleeding Disorder, Blood Transfusion(s), Other (See Below) 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 - Past Surgical History HEENT Surgical History: Reports: Adenoidectomy, Tonsillectomy GI Surgical History: Reports: Colonoscopy, Polypectomy Female Surgical History: Reports: Hysterectomy Musculoskeletal Surgical History: Reports: Other (See Below) Social & Family History - Family History Family Medical History: Noncontributory Cardiac: Reports: CAD, Hypertension Endocrine/Metabolic: Reports: Diabetes, type II Hematologic: Reports: None Immunologic: Reports: None - Caffeine Use Caffeine Use: Reports: None - Living Situation & Occupation Living situation: Reports: Single, Alone Occupation: Disabled ED ROS GENERAL - Review of Systems Review Of Systems: See Below Constitutional: Reports: Weakness (mild generally), Fatigue HEENT: Reports: No Symptoms Respiratory: Reports: No Symptoms. Denies: Shortness of Breath Cardiovascular: Reports: No Symptoms. Denies: Chest Pain, Dyspnea on Exertion, Lightheadedness, Palpitations, Syncope Endocrine: Reports: No Symptoms GI/Abdominal: Reports: Black Stool (tarry). Denies: Abdominal Pain, Constipation, Nausea, Vomiting : Reports: No Symptoms Musculoskeletal: Reports: No Symptoms Skin: Reports: Pallor Neurological: Reports: No Symptoms Psychiatric: Reports: No Symptoms Hematologic/Lymphatic: Reports: No Symptoms Immunologic: Reports: No Symptoms ED EXAM, GENERAL - Physical Exam Exam: See Below Exam Limited By: No Limitations General Appearance: Alert, WD/WN, No Apparent Distress Eye Exam: Bilateral Eye: PERRL, Other (pale conjucta) Ears: Normal External Exam, Normal Canal, Hearing Grossly Normal, Normal TMs Ear Exam: Bilateral Ear: Auricle Normal, Canal Normal, TM normal Nose: Normal Inspection, Normal Mucosa, No Blood Throat/Mouth: Normal Inspection, Normal Lips, Normal Teeth, Normal Gums, Normal Oropharynx, Normal Voice, No Airway Compromise Head: Atraumatic, Normocephalic Neck: Normal Inspection, Supple, Non-Tender, Full Range of Motion Respiratory/Chest: No Respiratory Distress, Lungs Clear, Normal Breath Sounds, No Accessory Muscle Use Cardiovascular: Normal Peripheral Pulses, Regular Rate, Rhythm, No Edema, No Gallop, No JVD, No Murmur, No Rub Peripheral Pulses: 2+: Radial (L), Radial (R), Posterior Tibial (L), Posterior Tibial (R) GI/Abdominal: Normal Bowel Sounds, Soft, Non-Tender, No Organomegaly, No Distention, No Mass, Pelvis Stable Back Exam: Normal Inspection Extremities: Normal Inspection, Normal Range of Motion, Non-Tender, No Pedal Edema, Normal Capillary Refill Neurological: Alert, Oriented, Normal Cognition, Normal Gait, No Motor/Sensory Deficits Psychiatric: Normal Affect, Normal Mood Skin Exam: Warm, Dry, Intact, No Rash, Pallor (mild) Lymphatic: No Adenopathy Course - Vital Signs Last Recorded V/S: Last Vital Signs Temp 98.1 F 05/22/20 14:20 Pulse 89 05/22/20 14:20 Resp 20 05/22/20 14:20 BP 134/59 L 05/22/20 14:20 Pulse Ox 95 05/22/20 14:20 - Orders/Labs/Meds Orders: Active Orders 24 hr Category Date Time Status COMPREHENSIVE METABOLIC PN,CMP [CHEM] Stat Lab 05/22/20 14:23 Results TYPE AND SCREEN [BBK] Stat Lab 05/22/20 14:23 Received Labs: Laboratory Tests 05/22/20 05/22/20 Range/Units 14:23 14:23 WBC 5.3 (5.0-10.0) 10^3/uL RBC 4.06 (4.00-5.50) 10^6/uL Hgb 9.2 L (12.0-16.0) g/dL Hct 32.1 L (37.0-47.0) % MCV 79.1 L (82.0-94.0) fL MCH 22.7 L (27.0-32.0) pg MCHC 28.7 L (33.0-38.0) g/dL RDW Coeff of Davis 17.8 H (11.0-15.0) % Plt Count 240 (150-400) 10^3/uL Neut % (Auto) 70.4 (35-85) % Lymph % (Auto) 20.8 (10-55) % [place] % (Auto) 6.2 (0-16) % Eos % (Auto) 1.9 (0-5) % Baso % (Auto) 0.7 (0-3) % Neut # (Auto) 3.76 (1.80-7.00) 10^3/uL Lymph # (Auto) 1.11 (1.00-4.80) 10^3/uL [place] # (Auto) 0.33 (0.00-0.80) 10^3/uL Eos # (Auto) 0.10 (0.00-0.45) 10^3/uL Baso # (Auto) 0.04 10^3/uL Sodium 139 (136-145) mEq/L Potassium 3.3 L (3.5-5.0) mEq/L Chloride 102 (98-106) mEq/L Carbon Dioxide 30 (21-32) mmol/L BUN 15 (7-18) mg/dL Creatinine 1.2 H (0.6-1.0) mg/dL Est Cr Clr Drug Dosing TNP Estimated GFR (MDRD) 45 L (>=60) mL/min Glucose 223 H D (75-99) mg/dL Calcium 9.2 (8.4-10.1) mg/dL Total Bilirubin 0.4 (0.0-1.0) mg/dL ALT 20 (12-78) U/L Alkaline Phosphatase 116 (46-116) U/L Total Protein 7.7 (6.4-8.2) g/dL Albumin 4.0 (3.4-5.0) g/dL - Re-Assessments/Exams Free Text/Narrative Re-Assessment/Exam: 05/22/20 14:51 Patient hgb today is 9.2, no transfusion. Patient is 3.3, will not treat this in the ER today. Patient CR is 1.2, she has history of CR of 1.0, 1.1, and 1.2 in past history. Patient reports drinking without difficulty. Will call [facility] specialist about this patient. 05/22/20 15:01 I called [facility], will discuss with GI. Last endoscopy with ablation was 04/07/20. They will call me back once available. 05/22/20 15:[address] Delgado GI specialist at [facility], he has reviewed patient case and their notes. We discussed her current labs. No vomiting, vital signs stable. He reports to discharge patient and have her call tomorrow to get set up for a scope. Will discharge patient home now. Departure - Departure Time of Disposition: 15:23 Disposition: Home, Self-Care 01 Condition: Fair Clinical Impression: GAVE (gastric antral vascular ectasia), Chronic GI bleeding - Discharge Information *PRESCRIPTION DRUG MONITORING PROGRAM REVIEWED*: Not Applicable *COPY OF PRESCRIPTION DRUG MONITORING REPORT IN PATIENT JESE: Not Applicable Instructions: Upper Gastrointestinal Bleeding Forms: ED Department Discharge Additional Instructions: Followup with your specialist and GI Call tomorrow for scheduled endoscopy Return to the ER for worsening of condition or any emergent concerns Followup with primary care provider as needed Sepsis Event Note (ED) - Focused Exam Vital Signs: Vital Signs Temp Pulse Resp BP Pulse Ox 05/22/20 14:20 98.1 F 89 20 134/59 L 95 - My Orders Last 24 Hours: My Active Orders 05/22/20 14:23 COMPREHENSIVE METABOLIC PN,CMP [CHEM] Stat TYPE AND SCREEN [BBK] Stat - Assessment/Plan Last 24 Hours: My Active Orders 05/22/20 14:23 COMPREHENSIVE METABOLIC PN,CMP [CHEM] Stat TYPE AND SCREEN [BBK] Stat Plan: PLEASE SEE RN NOTE FOR PFSH
[2020-05-22 14:21] VITALS: BP 134/59; PULSE 89
[2020-05-22 14:43] LABS: CHLORIDE,CL 102 mEq/L (98-106); SODIUM,NA 139 mEq/L (136-145)
== END 2020-05-22 15:35 | disposition home or self-care (01) ==
LOC: CC.ED 13:39
DX: K31.811 Angiodysplasia of stomach and duodenum with bleeding (principal); I10 Essential (primary) hypertension; J45.909 Unspecified asthma, uncomplicated; F41.9 Anxiety disorder, unspecified; F32.9 Major depressive disorder, single episode, unspecified; E11.9 Type 2 diabetes mellitus without complications; Z79.4 Long term (current) use of insulin; Z90.49 Acquired absence of other specified parts of digestive tract; Z90.710 Acquired absence of both cervix and uterus; Z88.5 Allergy status to narcotic agent; Z88.8 Allergy status to other drugs, medicaments and biological substances; Z88.1 Allergy status to other antibiotic agents
CPT/HCPCS: 36415; 80053; 85025; 86850; 86900; 86901; 99284

== ENCOUNTER 2021-01-06 13:05 | Emergency (ER) | payer MEDICARE, MEDICAID ==
--- NOTE | 2021-01-06 13:41 | EDM.PDOC ---
ED HPI GENERAL MEDICAL PROBLEM - General Chief Complaint: Upper Extremity Injury/Pain Stated Complaint: RT SHLDR/CARRYING CAT UPSTAIRS AND TRIPPED Time Seen by Provider: 01/06/21 13:31 Source of Information: Reports: Patient History Limitations: Reports: No Limitations - History of Present Illness INITIAL COMMENTS - FREE TEXT/NARRATIVE: Basilia is a 70 yo female who presents to the ED with c/o right shoulder pain. She reports just prior to ED presentation she was attempting to pickling grader her cat. Was walking up the steps and fell, landing on her right shoulder. She reports instant pain. She reports she had total shoulder arthroscopy of right shoulder April [address] Joya. Does also report multiple other fractures of this arm, for which she has plates/screws as well. Denies any numbness. Cap refill <2 seconds of RUE. She is unable to move RUE without significant pain. Onset: Today, Sudden Onset Date: 01/06/21 Duration: Constant Location: Reports: Upper Extremity, Right Quality: Reports: Sharp, Throbbing Severity: Severe Improves with: Reports: None Worsens with: Reports: Movement Right Arm Pain Score (Numeric/FACES): 9 - Related Data Allergies Allergy/AdvReac Type Severity Reaction Status Date / Time codeine Allergy Hives Verified 01/06/21 13:39 lisinopril Allergy Cannot Verified 01/06/21 13:39 Remember meperidine HCl [From Demerol] Allergy Hives Verified 01/06/21 13:39 montelukast sodium Allergy Cannot Verified 01/06/21 13:39 [From Singulair] Remember morphine Allergy Hives Verified 01/06/21 13:39 niacin Allergy Hives Verified 01/06/21 13:39 pregabalin [From Lyrica] Allergy Cannot Verified 01/06/21 13:39 Remember erythromycin base AdvReac Tachycardia Verified 01/06/21 13:39 Home Meds: Home Meds Citalopram Hydrobromide [Celexa] 40 mg PO DAILY 10/22/13 [History] Albuterol [Proair HFA] 2 puff INH Q4H PRN 09/09/14 [History] Furosemide [Lasix] 40 mg PO DAILY 09/09/14 [History] Gabapentin [Neurontin] 200 mg PO BID 04/05/17 [History] Metoprolol Succinate [Toprol Xl] 25 mg PO DAILY 04/06/17 [History] Pantoprazole Sodium 40 mg PO BID 04/25/17 [History] Insulin Glargine,Hum.Rec.Anlog [Basaglar Kwikpen U-100] 60 unit SUBCUT BEDTIME 03/20/18 [History] Insulin Aspart [NovoLOG] 20 unit SUBCUT TIDMEALS 08/25/18 [History] Cholecalciferol (Vitamin D3) [Vitamin D3] 1,000 unit PO DAILY 03/09/20 [History] Cyanocobalamin (Vitamin B12) [Vitamin B12] 1,000 mcg PO DAILY 03/09/20 [History] Cyclobenzaprine [Flexeril] 10 mg PO BEDTIME 03/09/20 [History] QUEtiapine [SEROquel] 100 mg PO BEDTIME 03/09/20 [History] Biotin 1 mg PO DAILY 05/20/20 [History] Sucralfate [Carafate] 1 g PO QID 05/20/20 [History] Zinc 1 tab PO DAILY 10/07/20 [History] Cyclobenzaprine [Flexeril] 10 mg PO TID #30 tab 01/06/21 [Rx] Past Medical History Cardiovascular History: Reports: Hypertension Respiratory History: Reports: Asthma Gastrointestinal History: Reports: GI Bleed, Other (See Below) Other Gastrointestinal History: Gastric antral vascular ectasia (GAVE) Genitourinary History: Reports: None FINGERPRINT TECHNICIAN History: Reports: Other (See Below) Other FINGERPRINT TECHNICIAN History: severe ovarian cysts Musculoskeletal History: Reports: Back Pain, Chronic Psychiatric History: Reports: Anxiety, Depression Endocrine/Metabolic History: Reports: Diabetes, Type II Hematologic History: Reports: Bleeding Disorder, Blood Transfusion(s), Other (See Below) 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 - Past Surgical History HEENT Surgical History: Reports: Adenoidectomy, Tonsillectomy Cardiovascular Surgical History: Reports: None Respiratory Surgical History: Reports: None GI Surgical History: Reports: Colonoscopy, Polypectomy Other GI Surgeries/Procedures: Cauterization of capillaries in stomach d/t GAVE Female Surgical History: Reports: Hysterectomy Endocrine Surgical History: Reports: None Musculoskeletal Surgical History: Reports: Shoulder Replacement, Other (See Below) Other Musculoskeletal Surgeries/Procedures:: back kyphoplasy Social & Family History - Family History Family Medical History: No Pertinent Family History Cardiac: Reports: CAD, Hypertension Endocrine/Metabolic: Reports: Diabetes, type II Hematologic: Reports: None Immunologic: Reports: None - Tobacco Use Tobacco Use Status *Q: Never Tobacco User - Caffeine Use Caffeine Use: Reports: None - Recreational Drug Use Recreational Drug Use: No - Living Situation & Occupation Living situation: Reports: Single, Alone Occupation: Disabled Review of Systems - Review of Systems Review Of Systems: Comprehensive ROS is negative, except as noted in HPI. ED EXAM, GENERAL - Physical Exam Exam: See Below Exam Limited By: No Limitations General Appearance: Alert, WD/WN, Mild Distress Peripheral Pulses: 2+: Radial (R) Extremities: Normal Capillary Refill, Limited Range of Motion (unable to move RUE without significant pain ), Other (significant tenderness with palpation of right shoulder and proximal arm ) Psychiatric: Tearful Skin Exam: Intact Course - Vital Signs Last Recorded V/S: Last Vital Signs Temp 98.1 F 01/06/21 13:29 Pulse 65 01/06/21 14:14 Resp 18 01/06/21 14:14 BP 118/55 L 01/06/21 14:14 Pulse Ox 99 01/06/21 14:14 - Orders/Labs/Meds Orders: Active Orders 24 hr Category Date Time Status Shoulder Comp Rt [CR] Routine Exams 01/06/21 Taken Meds: Medications Discontinued Medications Generic Name Dose Route Start Last Admin Trade Name Rene PRN Reason Stop Dose Admin Fentanyl 25 mcg 01/06/21 13:42 01/06/21 13:50 Fentanyl 50 Mcg/Ml Sdv IVPUSH 01/06/21 13:43 25 mcg ONETIME ONE Administration - Re-Assessments/Exams Free Text/Narrative Re-Assessment/Exam: 01/06/21 13:49 [place]ed [facility] [place] Joya[place]. Nursing staff will attempt to get in contact with him to review. 01/06/21 14:[address] Joya. Recommend sling and pain management. Recommends f/u in ortho clinic Saturday for recheck. Departure - Departure Time of Disposition: 14:30 Disposition: Home, Self-Care 01 Condition: Fair Clinical Impression: Fracture, humerus closed Qualifiers: Encounter type: initial encounter Humerus Location: proximal Fracture morphology: unspecified fracture morphology Laterality: right Qualified Code(s): S42.201A - Unspecified fracture of upper end of right humerus, initial encounter for closed fracture - Discharge Information *PRESCRIPTION DRUG MONITORING PROGRAM REVIEWED*: Yes *COPY OF PRESCRIPTION DRUG MONITORING REPORT IN PATIENT JESE: Yes Prescriptions: Cyclobenzaprine [Flexeril] 10 mg PO TID #30 tab Instructions: Humerus Fracture Treated With Immobilization, [id number] Referrals: Howard Acevedo MD [Primary Care Provider] - Christopher Joya DO [Ordering Only Provider] - Forms: ED Department Discharge Additional Instructions: - Keep right arm in sling - [place] 1 tablet every 4 hours as needed for pain - Flexeril 1 tablet every 8 hours as needed for muscle spasm - Ice affected area - [place] [facility] to arrange f/u apt with Dr. Joya on Saturday01/09/2021. [phone] - Follow up as needed - Return to ED for emergent needs Sepsis Event Note (ED) - Evaluation Sepsis Screening Result: No Definite Risk - Focused Exam Vital Signs: Vital Signs Temp Pulse Resp BP Pulse Ox 01/06/21 14:14 65 18 118/55 L 99 01/06/21 13:29 98.1 F 82 18 149/82 H 99 - Problem List & Annotations (1) Fracture, humerus closed SNOMED Code(s): 86271640 Code(s): S42.309A - UNSP FRACTURE OF SHAFT OF HUMERUS, UNSP ARM, INIT Status: Acute Current Visit: Yes Qualifiers: Encounter type: initial encounter Humerus Location: proximal Fracture morphology: unspecified fracture morphology Laterality: right Qualified Code(s): S42.201A - Unspecified fracture of upper end of right humerus, initial encounter for closed fracture - Problem List Review Problem List Initiated/Reviewed/Updated: Yes
[2021-01-06] MEDS ORDERED: fentaNYL 50 MCG/ML SDV IVPUSH ONE (13:42)
[2021-01-06 14:14] VITALS: BP 118/55; PULSE 65
== END 2021-01-06 15:50 | disposition home or self-care (01) ==
LOC: CC.ED 13:05
DX: S42.201A Unspecified fracture of upper end of right humerus, initial encounter for closed fracture (principal); J45.909 Unspecified asthma, uncomplicated; E11.9 Type 2 diabetes mellitus without complications; Z88.5 Allergy status to narcotic agent; Z88.1 Allergy status to other antibiotic agents; Z88.6 Allergy status to analgesic agent; Z88.8 Allergy status to other drugs, medicaments and biological substances; Z79.899 Other long term (current) drug therapy; Z79.4 Long term (current) use of insulin; W10.9XXA Fall (on) (from) unspecified stairs and steps, initial encounter
CPT/HCPCS: 73030-RT; 96374; 99283; 99283-25; J3010

== ENCOUNTER 2021-09-18 09:41 | Emergency (ER) | payer MEDICARE, MEDICAID ==
[2021-09-18 09:44] VITALS: BP 137/69; PULSE 86
[2021-09-18] MEDS ORDERED: fentaNYL 50 MCG/ML SDV IVPUSH ONE (10:10)
[2021-09-18] MEDS ORDERED: Ondansetron 4 MG/2 ML SDV IVPUSH STA (10:13)
== END 2021-09-18 13:27 | disposition home or self-care (01) ==
LOC: CC.ED 09:41
DX: S22.080A Wedge compression fracture of T11-T12 vertebra, initial encounter for closed fracture (principal); S39.012A Strain of muscle, fascia and tendon of lower back, initial encounter; I10 Essential (primary) hypertension; J45.909 Unspecified asthma, uncomplicated; E11.9 Type 2 diabetes mellitus without complications; Z88.5 Allergy status to narcotic agent; Z88.8 Allergy status to other drugs, medicaments and biological substances; Z88.1 Allergy status to other antibiotic agents; Z79.4 Long term (current) use of insulin; Z79.899 Other long term (current) drug therapy; W18.39XA Other fall on same level, initial encounter; Y92.009 Unspecified place in unspecified non-institutional (private) residence as the place of occurrence of the external cause
CPT/HCPCS: 36415; 71046; 72128; 72131; 80048; 85025; 96374; 96375; 99284-25; J2405; J3010

== ENCOUNTER 2021-11-15 13:45 | Observation (INO) | payer MEDICARE, MEDICAID ==
[2021-11-15] MEDS ORDERED: Sodium Chloride 0.9% 250 ML IV ONE (16:30)
[2021-11-15] MEDS ORDERED: Aluminum Hydroxide/Magnesium Hydroxide/Simethicone Susp 30 ML Cup PO PRN (17:02)
[2021-11-15] MEDS ORDERED: Acetaminophen 325 MG Tab PO PRN (17:02)
[2021-11-15] MEDS ORDERED: Take Home: Acetaminophen/HYDROcodone 325-5 MG, 2 Tab Pack PO ONE (20:52)
[2021-11-15] MEDS ORDERED: Acetaminophen/HYDROcodone 325-5 MG Tab PO ONE (20:58)
[2021-11-15] MEDS ORDERED: Glucagon,Human Recombinant 1 MG Vial IM PRN (21:28)
[2021-11-15] MEDS ORDERED: 50% Dextrose in Water 50 ML Syringe IVPUSH PRN (21:28)
[2021-11-15] MEDS ORDERED: Insulin Glarg,Human.Rec.Analog 100 Unit/ML SUBCUT SCH (21:39)
[2021-11-16 09:48] VITALS: BP 138/61; PULSE 81
[2021-11-16] MEDS ORDERED: Insulin Glarg,Human.Rec.Analog 100 Unit/ML SUBCUT SCH (20:00)
== END 2021-11-16 10:25 | disposition home or self-care (01) ==
LOC: CC.ED 13:45 → SUPCPDRO 13:45 → CC.MS 15:12 → UNDOADMOB 15:12 → CC.MS 15:22 → UNDOADMOB 15:24 → CC.MS 15:24
PROVIDERS: ADMIT Nurse Practitioner Family; ATTEND Nurse Practitioner Family
DX: S20.212A Contusion of left front wall of thorax, initial encounter (principal); S80.02XA Contusion of left knee, initial encounter; S00.83XA Contusion of other part of head, initial encounter; K31.819 Angiodysplasia of stomach and duodenum without bleeding; S02.2XXA Fracture of nasal bones, initial encounter for closed fracture; D63.8 Anemia in other chronic diseases classified elsewhere; F32.A Depression, unspecified; I10 Essential (primary) hypertension; J45.909 Unspecified asthma, uncomplicated; F41.9 Anxiety disorder, unspecified; E11.9 Type 2 diabetes mellitus without complications; Z79.4 Long term (current) use of insulin; Z88.5 Allergy status to narcotic agent; Z88.8 Allergy status to other drugs, medicaments and biological substances; Z79.899 Other long term (current) drug therapy; W18.30XA Fall on same level, unspecified, initial encounter; Z98.890 Other specified postprocedural states
CPT/HCPCS: 36415; 36430; 70160; 71045; 71101-LT; 80053; 81001; 82947; 83735; 85025; 86850; 86900; 86901; 86920; 86922; 93005; 99284; 99285-25; A9270-GY; G0378; J1815-GY; J7050; P9016

== ENCOUNTER 2023-10-19 11:34 | Emergency (ER) | payer MEDICARE, MEDICAID ==
[2023-10-19 12:05] LABS: BASOPHILS ABSOLUTE AUTO 0.06 10^3/uL (0.00-0.50); BASOPHILS PERCENT AUTO 1.2 % (0-1); EOSINOPHILS ABSOLUTE AUTO 0.11 10^3/uL (0.00-1.50); EOSINOPHILS PERCENT AUTO 2.2 % (0-6); HEMATOCRIT 24.8 % (37.0-47.0); IMMATURE GRAN ABSOLUTE AUTO 0.05 10^3/uL (0.00-0.49); LYMPHOCYTES PERCENT AUTO 11.7 % (24-44); MEAN CORPUSCULAR HEMOGLOBIN 22.8 pg (27.0-32.0); MEAN CORPUSCULAR HGB CONC 28.2 g/dL (32.0-36.0); MEAN CORPUSCULAR VOLUME 80.8 fL (83.0-97.0); MONOCYTES PERCENT AUTO 5.9 % (0-10); NEUTROPHILS ABSOLUTE AUTO 3.99 x10^3/uL (1.80-8.00); PLATELET COUNT,PLT 196 10^3/uL (150-400); RED BLOOD CELL COUNT 3.07 x10^6/uL (4.00-5.50); WHITE BLOOD CELL COUNT,WBC 5.1 10^3/uL (4.0-11.0)
[2023-10-19 12:26] LABS: ALBUMIN 3.4 g/dL (3.4-5.0); BILIRUBIN TOTAL 0.6 mg/dL (0.0-1.0); CREATININE 1.1 mg/dL (0.6-1.0); EST CRCL DRUG DOSING (CG) 38.24 mL/min; MAGNESIUM 1.9 mg/dL (1.8-2.4); PROTEIN TOTAL,TP 6.6 g/dL (6.4-8.2)
[2023-10-19] MEDS: Sodium Chloride 0.9% 250 ML IV STA (12:52)
[2023-10-19 18:28] VITALS: BP 100/46; PULSE 78
== END 2023-10-19 16:23 | disposition home or self-care (01) ==
LOC: CC.ED 11:34
DX: S82.832A Other fracture of upper and lower end of left fibula, initial encounter for closed fracture (principal); K92.2 Gastrointestinal hemorrhage, unspecified; I10 Essential (primary) hypertension; J45.909 Unspecified asthma, uncomplicated; E11.9 Type 2 diabetes mellitus without complications; Z88.5 Allergy status to narcotic agent; Z88.1 Allergy status to other antibiotic agents; Z88.8 Allergy status to other drugs, medicaments and biological substances; Z79.899 Other long term (current) drug therapy; Z79.4 Long term (current) use of insulin; Z90.710 Acquired absence of both cervix and uterus; W19.XXXA Unspecified fall, initial encounter
CPT/HCPCS: 29505; 29515; 36415; 36430; 73562-LT; 80053; 83735; 85025; 86850; 86900; 86901; 86920; 86922; 99284; J7050; P9016

== ENCOUNTER 2023-11-27 13:50 | Inpatient (IN) | payer MEDICARE, MEDICAID ==
[2023-11-27] MEDS: Ondansetron 4 MG/2 ML SDV IVPUSH STA (14:13)
[2023-11-27] MEDS: fentaNYL 50 MCG/ML SDV IVPUSH ONE ×2 (14:13→18:25)
[2023-11-27 14:22] LABS: BASOPHILS ABSOLUTE AUTO 0.03 10^3/uL (0.00-0.50); EOSINOPHILS ABSOLUTE AUTO 0.06 10^3/uL (0.00-1.50); EOSINOPHILS PERCENT AUTO 1.9 % (0-6); HEMATOCRIT 29.9 % (37.0-47.0); HEMOGLOBIN 8.7 g/dL (12.0-16.0); IMMATURE GRAN ABSOLUTE AUTO 0.07 10^3/uL (0.00-0.49); IMMATURE GRAN PERCENT AUTO 2.3 % (0.0-4.9); LYMPHOCYTES ABSOLUTE AUTO 0.47 10^3/uL (0.60-5.00); LYMPHOCYTES PERCENT AUTO 15.2 % (24-44); MEAN CORPUSCULAR HEMOGLOBIN 26.3 pg (27.0-32.0); MEAN CORPUSCULAR HGB CONC 29.1 g/dL (32.0-36.0); MEAN CORPUSCULAR VOLUME 90.3 fL (83.0-97.0); MONOCYTES ABSOLUTE AUTO 0.23 10^3/uL (0.00-1.50); MONOCYTES PERCENT AUTO 7.4 % (0-10); NEUTROPHILS ABSOLUTE AUTO 2.24 x10^3/uL (1.80-8.00); NEUTROPHILS PERCENT AUTO 72.2 % (41-71); PLATELET COUNT,PLT 151 10^3/uL (150-400); RED BLOOD CELL COUNT 3.31 x10^6/uL (4.00-5.50); WHITE BLOOD CELL COUNT,WBC 3.1 10^3/uL (4.0-11.0)
[2023-11-27 14:36] LABS: ALANINE AMINOTRANSFERASE,ALT 16 U/L (12-78); ALBUMIN 3.4 g/dL (3.4-5.0); ALKALINE PHOSPHATASE 127 U/L (46-116); ASPARTATE AMNIOTRANSFERASE,AST 22 U/L (15-37); BILIRUBIN TOTAL 0.7 mg/dL (0.0-1.0); BLOOD UREA NITROGEN,BUN 12 mg/dL (7-18); CALCIUM 8.5 mg/dL (8.4-10.1); CARBON DIOXIDE,CO2 29 mmol/L (21-32); CHLORIDE,CL 102 mEq/L (98-106); CREATININE 1.2 mg/dL (0.6-1.0); ESTIMATED GFR 48 mL/min (>=60); GLUCOSE RANDOM 168 mg/dL (75-99); MAGNESIUM 2.2 mg/dL (1.8-2.4); POTASSIUM,K 3.6 mEq/L (3.5-5.0); PROTEIN TOTAL,TP 6.3 g/dL (6.4-8.2); SODIUM,NA 141 mEq/L (136-145)
[2023-11-27 14:56] LABS: APPEARANCE,URINE CLEAR (CLEAR); BILIRUBIN,URINE NEGATIVE (NEGATIVE); COLOR,URINE AMBER (YELLOW); GLUCOSE,URINE NEGATIVE (NEGATIVE); KETONES,URINE NEGATIVE (NEGATIVE); LEUKOCYTE ESTERASE,URINE TRACE (NEGATIVE); NITRITE,URINE POSITIVE (NEGATIVE); OCCULT BLOOD,URINE TRACE-INTACT (NEGATIVE); PROTEIN,URINE NEGATIVE (NEGATIVE); UROBILINOGEN,URINE 0.2 EU/dL (0.2-1.0)
[2023-11-27 15:09] LABS: BACTERIA,URINE NOT SEEN /HPF (NOT SEEN); RBC,URINE 0-5 /HPF (0-5); SQUAMOUS EPITHELIAL CELLS,UR FEW /HPF (NOT SEEN); WBC,URINE 0-5 /HPF (0-5)
[2023-11-27] MEDS: Cyclobenzaprine 10 MG Tab PO ONE (18:25)
[2023-11-27] MEDS: Acetaminophen 325 MG Tab PO PRN (19:12)
[2023-11-27] MEDS ORDERED: Ondansetron 4 MG Tab.DIS PO PRN (19:48)
[2023-11-27] MEDS ORDERED: Acetaminophen 325 MG Tab PO PRN (19:48)
[2023-11-27] MEDS ORDERED: Ondansetron 4 MG/2 ML SDV IV PRN (19:48)
[2023-11-27] MEDS ORDERED: Albuterol 6.7 GM Inhaler INH PRN (19:48)
[2023-11-27] MEDS ORDERED: Cyclobenzaprine 10 MG Tab PO SCH (20:00)
[2023-11-27] MEDS: cefTRIAXone 1 GM Vial IVPUSH SCH (20:07)
[2023-11-27] MEDS: Gabapentin 100 MG Cap PO SCH (20:28)
[2023-11-27] MEDS: Insulin Glarg,Human.Rec.Analog 100 Unit/ML 10 ML Vial SUBCUT SCH (20:29)
[2023-11-27] MEDS: QUEtiapine 100 MG Tab PO SCH (20:29)
[2023-11-27] MEDS: traMADol 50 MG Tab PO PRN (21:55)
[2023-11-28] MEDS: Cyclobenzaprine 10 MG Tab PO PRN (05:53)
[2023-11-28] MEDS: Pantoprazole 40 MG Tab.CR PO SCH (07:20)
[2023-11-28 07:31] LABS: BASOPHILS ABSOLUTE AUTO 0.02 10^3/uL (0.00-0.50); BASOPHILS PERCENT AUTO 0.5 % (0-1); EOSINOPHILS ABSOLUTE AUTO 0.08 10^3/uL (0.00-1.50); EOSINOPHILS PERCENT AUTO 1.9 % (0-6); HEMATOCRIT 27.7 % (37.0-47.0); HEMOGLOBIN 7.9 g/dL (12.0-16.0); IMMATURE GRAN ABSOLUTE AUTO 0.03 10^3/uL (0.00-0.49); IMMATURE GRAN PERCENT AUTO 0.7 % (0.0-4.9); LYMPHOCYTES ABSOLUTE AUTO 0.61 10^3/uL (0.60-5.00); LYMPHOCYTES PERCENT AUTO 14.2 % (24-44); MEAN CORPUSCULAR HEMOGLOBIN 26.1 pg (27.0-32.0); MEAN CORPUSCULAR HGB CONC 28.5 g/dL (32.0-36.0); MEAN CORPUSCULAR VOLUME 91.4 fL (83.0-97.0); MONOCYTES ABSOLUTE AUTO 0.48 10^3/uL (0.00-1.50); MONOCYTES PERCENT AUTO 11.1 % (0-10); NEUTROPHILS ABSOLUTE AUTO 3.09 x10^3/uL (1.80-8.00); NEUTROPHILS PERCENT AUTO 71.6 % (41-71); PLATELET COUNT,PLT 128 10^3/uL (150-400); RED BLOOD CELL COUNT 3.03 x10^6/uL (4.00-5.50); WHITE BLOOD CELL COUNT,WBC 4.3 10^3/uL (4.0-11.0)
[2023-11-28 07:35] LABS: CALCIUM 8.5 mg/dL (8.4-10.1); CREATININE 1.1 mg/dL (0.6-1.0); EST CRCL DRUG DOSING (CG) 36.56 mL/min; MAGNESIUM 2.6 mg/dL (1.8-2.4); POTASSIUM,K 4.1 mEq/L (3.5-5.0)
[2023-11-28] MEDS: Metoprolol Succinate 25 MG Tab.ER PO SCH (08:07)
[2023-11-28] MEDS: Cholecalciferol (Vitamin D3) 25 MCG Tab PO SCH (08:08)
[2023-11-28] MEDS: Vitamin B Complex Cap PO SCH (08:08)
[2023-11-28] MEDS: Furosemide 40 MG Tab PO SCH (08:08)
[2023-11-28] MEDS: Insulin Lispro 100 Units/ML 3 ML Vial SUBCUT SCH ×2 (08:08→17:17)
[2023-11-28] MEDS: Citalopram 10 MG Tab PO SCH (08:08)
[2023-11-28] MEDS: fentaNYL 50 MCG/ML SDV IVPUSH PRN (10:10)
[2023-11-28] MEDS: Piperacillin/Tazobactam 4.5 GM in Sodium Chloride 0.9% 100 ML IV ONE (12:49)
[2023-11-28] MEDS: Acetaminophen/HYDROcodone 325-5 MG Tab PO PRN (14:04)
[2023-11-28] MEDS: Piperacillin/Tazobactam 4.5 GM in Sodium Chloride 0.9% 100 ML IV SCH (15:35)
[2023-11-28] MEDS: Gabapentin 300 MG Cap PO SCH (19:24)
[2023-11-28] MEDS: Docusate Sodium 100 MG Cap PO PRN (19:24)
[2023-11-29 07:29] LABS: BASOPHILS ABSOLUTE AUTO 0.04 10^3/uL (0.00-0.50); BASOPHILS PERCENT AUTO 0.9 % (0-1); EOSINOPHILS ABSOLUTE AUTO 0.05 10^3/uL (0.00-1.50); EOSINOPHILS PERCENT AUTO 1.1 % (0-6); HEMATOCRIT 27.6 % (37.0-47.0); HEMOGLOBIN 7.9 g/dL (12.0-16.0); IMMATURE GRAN ABSOLUTE AUTO 0.04 10^3/uL (0.00-0.49); IMMATURE GRAN PERCENT AUTO 0.9 % (0.0-4.9); LYMPHOCYTES ABSOLUTE AUTO 0.56 10^3/uL (0.60-5.00); LYMPHOCYTES PERCENT AUTO 12.1 % (24-44); MEAN CORPUSCULAR HEMOGLOBIN 26.2 pg (27.0-32.0); MEAN CORPUSCULAR HGB CONC 28.6 g/dL (32.0-36.0); MEAN CORPUSCULAR VOLUME 91.7 fL (83.0-97.0); MONOCYTES ABSOLUTE AUTO 0.37 10^3/uL (0.00-1.50); NEUTROPHILS ABSOLUTE AUTO 3.58 x10^3/uL (1.80-8.00); PLATELET COUNT,PLT 124 10^3/uL (150-400); RED BLOOD CELL COUNT 3.01 x10^6/uL (4.00-5.50); WHITE BLOOD CELL COUNT,WBC 4.6 10^3/uL (4.0-11.0)
[2023-11-29] MEDS: Beta-Carotene (Vitamin A) w/Vitamin C & E plus Minerals Tab PO SCH (07:43)
[2023-11-29 08:05] LABS: CALCIUM 8.5 mg/dL (8.4-10.1); CREATININE 1.3 mg/dL (0.6-1.0); EST CRCL DRUG DOSING (CG) 30.94 mL/min; MAGNESIUM 2.1 mg/dL (1.8-2.4); POTASSIUM,K 3.5 mEq/L (3.5-5.0)
[2023-11-29] MEDS: Acetaminophen/HYDROcodone 325-5 MG Tab PO PRN (12:22)
[2023-11-29] MEDS: Sucralfate 1 GM Tab PO SCH (19:47)
[2023-11-29] MEDS ORDERED: Temazepam 15 MG Cap PO PRN (22:55)
[2023-11-30] MEDS: Polyethylene Glycol 3350 Powder 17 GM Packet PO PRN (07:18)
[2023-11-30 07:42] LABS: BASOPHILS ABSOLUTE AUTO 0.03 10^3/uL (0.00-0.50); BASOPHILS PERCENT AUTO 0.7 % (0-1); EOSINOPHILS ABSOLUTE AUTO 0.09 10^3/uL (0.00-1.50); EOSINOPHILS PERCENT AUTO 2.1 % (0-6); HEMATOCRIT 27.1 % (37.0-47.0); HEMOGLOBIN 7.8 g/dL (12.0-16.0); IMMATURE GRAN ABSOLUTE AUTO 0.04 10^3/uL (0.00-0.49); IMMATURE GRAN PERCENT AUTO 0.9 % (0.0-4.9); LYMPHOCYTES ABSOLUTE AUTO 0.53 10^3/uL (0.60-5.00); LYMPHOCYTES PERCENT AUTO 12.2 % (24-44); MEAN CORPUSCULAR HEMOGLOBIN 26.4 pg (27.0-32.0); MEAN CORPUSCULAR HGB CONC 28.8 g/dL (32.0-36.0); MEAN CORPUSCULAR VOLUME 91.9 fL (83.0-97.0); MONOCYTES ABSOLUTE AUTO 0.28 10^3/uL (0.00-1.50); MONOCYTES PERCENT AUTO 6.4 % (0-10); NEUTROPHILS ABSOLUTE AUTO 3.39 x10^3/uL (1.80-8.00); NEUTROPHILS PERCENT AUTO 77.7 % (41-71); PLATELET COUNT,PLT 119 10^3/uL (150-400); RED BLOOD CELL COUNT 2.95 x10^6/uL (4.00-5.50); WHITE BLOOD CELL COUNT,WBC 4.4 10^3/uL (4.0-11.0)
[2023-11-30 07:51] LABS: CALCIUM 8.6 mg/dL (8.4-10.1); CREATININE 1.1 mg/dL (0.6-1.0); EST CRCL DRUG DOSING (CG) 36.56 mL/min; MAGNESIUM 2.1 mg/dL (1.8-2.4); POTASSIUM,K 3.5 mEq/L (3.5-5.0)
[2023-12-01 12:18] VITALS: BP 108/52; PULSE 85
== END 2023-12-01 12:18 | disposition swing bed (61) | DRG 536 ==
LOC: CC.ED 13:50 → UNDOADMOB 16:29 → CC.MS 16:29 → OBSVTOIN 11-28 11:15
PROVIDERS: ADMIT Nurse Practitioner; ATTEND Nurse Practitioner
DX: S32.592A Other specified fracture of left pubis, initial encounter for closed fracture (principal); S32.10XA Unspecified fracture of sacrum, initial encounter for closed fracture; N39.0 Urinary tract infection, site not specified; Z16.24 Resistance to multiple antibiotics; M25.512 Pain in left shoulder; Z88.1 Allergy status to other antibiotic agents; I10 Essential (primary) hypertension; J45.909 Unspecified asthma, uncomplicated; M54.9 Dorsalgia, unspecified; G89.29 Other chronic pain; F41.9 Anxiety disorder, unspecified; X50.1XXA Overexertion from prolonged static or awkward postures, initial encounter; F32.A Depression, unspecified; E11.9 Type 2 diabetes mellitus without complications; Z96.619 Presence of unspecified artificial shoulder joint; W19.XXXA Unspecified fall, initial encounter; B96.20 Unspecified Escherichia coli [E. coli] as the cause of diseases classified elsewhere; Z88.5 Allergy status to narcotic agent; Z88.8 Allergy status to other drugs, medicaments and biological substances; Z79.51 Long term (current) use of inhaled steroids; Z79.899 Other long term (current) drug therapy; Z79.4 Long term (current) use of insulin; Z90.89 Acquired absence of other organs; Z90.710 Acquired absence of both cervix and uterus; Z98.890 Other specified postprocedural states
CPT/HCPCS: 36415; 70450; 72125; 72131; 72192; 73030-LT; 80048; 80053; 81001; 82947; 83735; 85025; 87086; 96374; 96375; 96376; 97110-GP; 97161-GP; 99223; 99232; 99233; 99238; 99285-25; A9270-GY; G0378; J0696; J1815-GY; J2405; J2543; J3010; J3360; J3490

== ENCOUNTER 2023-12-22 09:10 | Observation (INO) | payer MEDICARE, MEDICAID ==
[2023-12-22] MEDS: fentaNYL 100 MCG/2 ML SDV IVPUSH ONE (10:17)
[2023-12-22 10:28] LABS: BASOPHILS ABSOLUTE AUTO 0.01 10^3/uL (0.00-0.50); BASOPHILS PERCENT AUTO 0.2 % (0-1); EOSINOPHILS ABSOLUTE AUTO 0.07 10^3/uL (0.00-1.50); EOSINOPHILS PERCENT AUTO 1.5 % (0-6); HEMATOCRIT 35.3 % (37.0-47.0); HEMOGLOBIN 10.7 g/dL (12.0-16.0); IMMATURE GRAN ABSOLUTE AUTO 0.05 10^3/uL (0.00-0.49); LYMPHOCYTES ABSOLUTE AUTO 0.48 10^3/uL (0.60-5.00); MEAN CORPUSCULAR HEMOGLOBIN 26.6 pg (27.0-32.0); MEAN CORPUSCULAR HGB CONC 30.3 g/dL (32.0-36.0); MEAN CORPUSCULAR VOLUME 87.6 fL (83.0-97.0); MONOCYTES PERCENT AUTO 6.2 % (0-10); NEUTROPHILS PERCENT AUTO 81.1 % (41-71); PLATELET COUNT,PLT 147 10^3/uL (150-400); RED BLOOD CELL COUNT 4.03 x10^6/uL (4.00-5.50); WHITE BLOOD CELL COUNT,WBC 4.8 10^3/uL (4.0-11.0)
[2023-12-22] MEDS: HYDROmorphone 1 MG/ML Syringe IVPUSH ONE (10:43)
[2023-12-22] MEDS: Morphine 4 MG/ML VIAL IVPUSH ONE (10:43)
[2023-12-22 10:51] LABS: BILIRUBIN TOTAL 0.4 mg/dL (0.0-1.0); CREATININE 1.2 mg/dL (0.6-1.0); EST CRCL DRUG DOSING (CG) 33.52 mL/min; MAGNESIUM 2.3 mg/dL (1.8-2.4); POTASSIUM,K 4.3 mEq/L (3.5-5.0); PROTEIN TOTAL,TP 7.3 g/dL (6.4-8.2)
[2023-12-22 10:55] LABS: ALBUMIN 3.7 g/dL (3.4-5.0)
[2023-12-22 11:03] LABS: APPEARANCE,URINE CLEAR (CLEAR); BILIRUBIN,URINE NEGATIVE (NEGATIVE); COLOR,URINE YELLOW (YELLOW); GLUCOSE,URINE NEGATIVE (NEGATIVE); KETONES,URINE NEGATIVE (NEGATIVE); LEUKOCYTE ESTERASE,URINE SMALL (NEGATIVE); NITRITE,URINE NEGATIVE (NEGATIVE); OCCULT BLOOD,URINE NEGATIVE (NEGATIVE); PROTEIN,URINE NEGATIVE (NEGATIVE); UROBILINOGEN,URINE 0.2 EU/dL (0.2-1.0)
[2023-12-22 11:11] LABS: BACTERIA,URINE FEW /HPF (NOT SEEN); EPITHELIAL CELLS,URINE MANY /HPF (NOT SEEN); RBC,URINE 0-5 /HPF (0-5); YEAST,URINE FEW /HPF (NOT SEEN)
[2023-12-22] MEDS ORDERED: Ondansetron 4 MG Tab.DIS PO PRN (12:21)
[2023-12-22] MEDS ORDERED: fentaNYL 50 MCG/ML SDV IVPUSH PRN (12:21)
[2023-12-22] MEDS ORDERED: Nystatin Topical Powder 15 GM Bottle TOP PRN (12:21)
[2023-12-22] MEDS ORDERED: Docusate Sodium 100 MG Cap PO PRN (12:21)
[2023-12-22] MEDS ORDERED: Albuterol 6.7 GM Inhaler INH PRN (12:21)
[2023-12-22] MEDS ORDERED: Polyethylene Glycol 3350 Powder 17 GM Packet PO PRN (12:21)
[2023-12-22] MEDS: Insulin Lispro 100 Units/ML 3 ML Vial SUBCUT SCH (14:19)
[2023-12-22] MEDS: Hypromellose 0.3% Ophth Soln 15 ML Bottle EYEBOTH SCH (14:19)
[2023-12-22] MEDS: Gabapentin 100 MG Cap PO SCH (14:22)
[2023-12-22] MEDS: Nystatin Crm 30 GM Tube TOP SCH (14:33)
[2023-12-22] MEDS: Sucralfate 1 GM Tab PO SCH (16:18)
[2023-12-22] MEDS: Acetaminophen/HYDROcodone 325-5 MG Tab PO PRN (16:25)
[2023-12-22] MEDS: Formoterol/Mometasone 100-5 MCG 8.8 GM Inhaler IH SCH (19:55)
[2023-12-22] MEDS: QUEtiapine 100 MG Tab PO SCH (19:56)
[2023-12-22] MEDS: Temazepam 15 MG Cap PO SCH (19:56)
[2023-12-22] MEDS: Insulin Glarg,Human.Rec.Analog 100 Unit/ML 10 ML Vial SUBCUT SCH (19:56)
[2023-12-22] MEDS: Pantoprazole 40 MG Tab.CR PO SCH (19:56)
[2023-12-22] MEDS ORDERED: Nystatin Crm 30 GM Tube TOP PRN (20:06)
[2023-12-22] MEDS: Cyclobenzaprine 10 MG Tab PO PRN (20:09)
[2023-12-23] MEDS: Metoprolol Succinate 25 MG Tab.ER PO SCH (07:49)
[2023-12-23] MEDS: Vitamin B Complex Cap PO SCH (07:49)
[2023-12-23] MEDS: Citalopram 10 MG Tab PO SCH (07:50)
[2023-12-23] MEDS: Potassium Chloride 20 MEQ Tab.ER PO SCH (07:50)
[2023-12-23] MEDS: Furosemide 40 MG Tab PO SCH (07:50)
[2023-12-23] MEDS: Loratadine 10 MG Tab PO SCH (07:50)
[2023-12-23] MEDS: Cholecalciferol (Vitamin D3) 25 MCG Tab PO SCH (07:51)
[2023-12-23] MEDS: Lidocaine 4% 1 each Patch TOP PRN (09:32)
[2023-12-23] MEDS ORDERED: methylPREDNISolone Sodium Succinate 40 MG/1 ML SDV IVPUSH ONE (15:45)
[2023-12-23] MEDS: Acetaminophen 325 MG Tab PO PRN (15:57)
[2023-12-23] MEDS: methylPREDNISolone Sodium Succinate 40 MG/1 ML SDV IVPUSH ONE (15:58)
[2023-12-23] MEDS: Formoterol/Mometasone 100-5 MCG 8.8 GM Inhaler IH SCH (19:35)
[2023-12-24] MEDS: Beta-Carotene (Vitamin A) w/Vitamin C & E plus Minerals Tab PO SCH (07:34)
[2023-12-24] MEDS: methylPREDNISolone Sodium Succinate 40 MG/1 ML SDV IVPUSH ONE (07:35)
[2023-12-24 07:37] LABS: CALCIUM 8.8 mg/dL (8.4-10.1); CREATININE 1.1 mg/dL (0.6-1.0); EST CRCL DRUG DOSING (CG) 36.56 mL/min; POTASSIUM,K 3.5 mEq/L (3.5-5.0)
[2023-12-24 07:40] LABS: BASOPHILS ABSOLUTE AUTO 0.01 10^3/uL (0.00-0.50); BASOPHILS PERCENT AUTO 0.3 % (0-1); HEMATOCRIT 29.6 % (37.0-47.0); HEMOGLOBIN 8.8 g/dL (12.0-16.0); IMMATURE GRAN ABSOLUTE AUTO 0.03 10^3/uL (0.00-0.49); IMMATURE GRAN PERCENT AUTO 0.9 % (0.0-4.9); LYMPHOCYTES ABSOLUTE AUTO 0.44 10^3/uL (0.60-5.00); LYMPHOCYTES PERCENT AUTO 13.5 % (24-44); MEAN CORPUSCULAR HEMOGLOBIN 26.3 pg (27.0-32.0); MEAN CORPUSCULAR HGB CONC 29.7 g/dL (32.0-36.0); MEAN CORPUSCULAR VOLUME 88.4 fL (83.0-97.0); MONOCYTES ABSOLUTE AUTO 0.27 10^3/uL (0.00-1.50); MONOCYTES PERCENT AUTO 8.3 % (0-10); NEUTROPHILS ABSOLUTE AUTO 2.52 x10^3/uL (1.80-8.00); PLATELET COUNT,PLT 145 10^3/uL (150-400); RED BLOOD CELL COUNT 3.35 x10^6/uL (4.00-5.50); WHITE BLOOD CELL COUNT,WBC 3.3 10^3/uL (4.0-11.0)
[2023-12-24 12:15] VITALS: BP 138/70; PULSE 98
== END 2023-12-24 13:50 | disposition home or self-care (01) ==
LOC: CC.ED 09:10 → CC.MS 11:48 → UNDOADMOB 12:17 → CC.MS 12:17
PROVIDERS: ADMIT Nurse Practitioner; ATTEND Nurse Practitioner
DX: M54.41 Lumbago with sciatica, right side (principal); M25.551 Pain in right hip; M25.511 Pain in right shoulder; R26.2 Difficulty in walking, not elsewhere classified; F32.A Depression, unspecified; E11.9 Type 2 diabetes mellitus without complications; F41.9 Anxiety disorder, unspecified; J45.909 Unspecified asthma, uncomplicated; I10 Essential (primary) hypertension; Z98.890 Other specified postprocedural states; Z79.4 Long term (current) use of insulin; Z79.899 Other long term (current) drug therapy; Z88.5 Allergy status to narcotic agent; Z88.8 Allergy status to other drugs, medicaments and biological substances
CPT/HCPCS: 36415; 73030-RT; 73700-RT; 80048; 80053; 81001; 82947; 83735; 85025; 96374; 96375; 96376; 97110-GP; 97161-GP; 99223; 99233; 99238; 99285-25; A9270-GY; G0378; J1815-GY; J2920; J3010

== ENCOUNTER 2023-12-31 11:48 | Observation (INO) | payer MEDICARE, MEDICAID ==
[2023-12-31 12:24] LABS: BASOPHILS ABSOLUTE AUTO 0.03 10^3/uL (0.00-0.50); BASOPHILS PERCENT AUTO 0.3 % (0-1); HEMOGLOBIN 10.7 g/dL (12.0-16.0); IMMATURE GRAN ABSOLUTE AUTO 0.08 10^3/uL (0.00-0.49); IMMATURE GRAN PERCENT AUTO 0.8 % (0.0-4.9); LYMPHOCYTES ABSOLUTE AUTO 1.39 10^3/uL (0.60-5.00); LYMPHOCYTES PERCENT AUTO 14.2 % (24-44); MEAN CORPUSCULAR HEMOGLOBIN 26.3 pg (27.0-32.0); MEAN CORPUSCULAR HGB CONC 29.7 g/dL (32.0-36.0); MEAN CORPUSCULAR VOLUME 88.5 fL (83.0-97.0); MONOCYTES ABSOLUTE AUTO 0.59 10^3/uL (0.00-1.50); NEUTROPHILS ABSOLUTE AUTO 7.63 x10^3/uL (1.80-8.00); NEUTROPHILS PERCENT AUTO 77.7 % (41-71); PLATELET COUNT,PLT 286 10^3/uL (150-400); RED BLOOD CELL COUNT 4.07 x10^6/uL (4.00-5.50); WHITE BLOOD CELL COUNT,WBC 9.8 10^3/uL (4.0-11.0)
[2023-12-31 12:25] LABS: APPEARANCE,URINE CLEAR (CLEAR); BILIRUBIN,URINE NEGATIVE (NEGATIVE); COLOR,URINE YELLOW (YELLOW); GLUCOSE,URINE NEGATIVE (NEGATIVE); KETONES,URINE TRACE mg/dL (NEGATIVE); LEUKOCYTE ESTERASE,URINE NEGATIVE (NEGATIVE); NITRITE,URINE NEGATIVE (NEGATIVE); OCCULT BLOOD,URINE SMALL (NEGATIVE); PH,URINE 6.5 (4.5-8.0); PROTEIN,URINE NEGATIVE (NEGATIVE); UROBILINOGEN,URINE 0.2 EU/dL (0.2-1.0)
[2023-12-31 12:43] LABS: ALBUMIN 3.7 g/dL (3.4-5.0); BILIRUBIN TOTAL 0.5 mg/dL (0.0-1.0); C-REACTIVE PROTEIN 3.19 mg/dL (<=0.50); CALCIUM 8.8 mg/dL (8.4-10.1); CREATININE 1.1 mg/dL (0.6-1.0); EST CRCL DRUG DOSING (CG) 34.88 mL/min; POTASSIUM,K 3.4 mEq/L (3.5-5.0); PROTEIN TOTAL,TP 7.3 g/dL (6.4-8.2)
[2023-12-31 12:50] LABS: BACTERIA,URINE NOT SEEN /HPF (NOT SEEN); EPITHELIAL CELLS,URINE RARE /HPF (NOT SEEN); MUCUS,URINE NOT SEEN /HPF (NOT SEEN); RBC,URINE 0-5 /HPF (0-5); WBC,URINE NOT SEEN /HPF (0-5)
[2023-12-31] MEDS ORDERED: Polyethylene Glycol 3350 Powder 17 GM Packet PO PRN (14:10)
[2023-12-31] MEDS ORDERED: Sodium Chloride 0.9% 10 ML Syringe FLUSH PRN (14:10)
[2023-12-31] MEDS ORDERED: Docusate Sodium 100 MG Cap PO PRN (14:10)
[2023-12-31] MEDS ORDERED: Ondansetron 4 MG Tab.DIS PO PRN (14:10)
[2023-12-31] MEDS ORDERED: Albuterol 6.7 GM Inhaler INH PRN (16:29)
[2023-12-31] MEDS ORDERED: Nystatin Topical Powder 15 GM Bottle TOP PRN (16:29)
[2023-12-31] MEDS ORDERED: Nystatin Crm 30 GM Tube TOP PRN (16:30)
[2023-12-31] MEDS: Acetaminophen/HYDROcodone 325-5 MG Tab PO PRN (17:58)
[2023-12-31] MEDS: Sucralfate 1 GM Tab PO SCH (18:16)
[2023-12-31] MEDS: Insulin Lispro 100 Units/ML 3 ML Vial SUBCUT SCH (18:17)
[2023-12-31] MEDS: QUEtiapine 100 MG Tab PO SCH (19:48)
[2023-12-31] MEDS: Formoterol/Mometasone 100-5 MCG 8.8 GM Inhaler IH SCH (19:48)
[2023-12-31] MEDS: Temazepam 15 MG Cap PO SCH (19:48)
[2023-12-31] MEDS: Gabapentin 300 MG Cap PO SCH (19:48)
[2023-12-31] MEDS: Pantoprazole 40 MG Tab.CR PO SCH (19:48)
[2023-12-31] MEDS: Insulin Glarg,Human.Rec.Analog 100 Unit/ML 10 ML Vial SUBCUT SCH (20:10)
[2024-01-01] MEDS: fentaNYL 50 MCG/ML SDV IVPUSH PRN (07:02)
[2024-01-01] MEDS: Cyclobenzaprine 10 MG Tab PO PRN (07:02)
[2024-01-01] MEDS: Loratadine 10 MG Tab PO SCH (07:53)
[2024-01-01] MEDS: Potassium Chloride 20 MEQ Tab.ER PO SCH (07:54)
[2024-01-01] MEDS: Cholecalciferol (Vitamin D3) 25 MCG Tab PO SCH (07:54)
[2024-01-01] MEDS: Furosemide 40 MG Tab PO SCH (07:54)
[2024-01-01] MEDS: Vitamin B Complex Cap PO SCH (07:54)
[2024-01-01] MEDS: Metoprolol Succinate 25 MG Tab.ER PO SCH (07:55)
[2024-01-01] MEDS: Citalopram 10 MG Tab PO SCH (07:56)
[2024-01-01 07:57] VITALS: BP 123/67; PULSE 95
[2024-01-01] MEDS: Hypromellose 0.3% Ophth Soln 15 ML Bottle EYEBOTH SCH (09:30)
[2024-01-01] MEDS: Saxagliptin 2.5 MG Tab PO SCH (09:30)
[2024-01-01] MEDS ORDERED: Formoterol/Mometasone 100-5 MCG 8.8 GM Inhaler IH SCH (20:00)
[2024-01-02] MEDS ORDERED: Beta-Carotene (Vitamin A) w/Vitamin C & E plus Minerals Tab PO SCH (08:00)
== END 2024-01-01 12:00 ==
LOC: CC.ED 11:48 → CC.MS 13:30 → UNDOADMOB 13:53
PROVIDERS: ADMIT Physician Assistant Medical; ATTEND Physician Assistant Medical
DX: M54.32 Sciatica, left side (principal); N39.46 Mixed incontinence; R60.0 Localized edema; B37.2 Candidiasis of skin and nail; E11.9 Type 2 diabetes mellitus without complications; I10 Essential (primary) hypertension; J45.909 Unspecified asthma, uncomplicated; F32.A Depression, unspecified; F41.9 Anxiety disorder, unspecified; Z79.4 Long term (current) use of insulin; Z79.899 Other long term (current) drug therapy; Z88.5 Allergy status to narcotic agent; Z88.8 Allergy status to other drugs, medicaments and biological substances
CPT/HCPCS: 36415; 71045; 72100; 80053; 81001; 82947; 83880; 85025; 86140; 96374; 96376; 99223; 99239; 99285; A9270-GY; G0378; J1815-GY; J3010

== ENCOUNTER 2024-03-22 19:20 | Emergency (ER) | payer MEDICARE, MEDICAID ==
[2024-03-22 20:37] LABS: APPEARANCE,URINE CLEAR (CLEAR); BILIRUBIN,URINE NEGATIVE (NEGATIVE); COLOR,URINE YELLOW (YELLOW); GLUCOSE,URINE NEGATIVE (NEGATIVE); KETONES,URINE NEGATIVE (NEGATIVE); LEUKOCYTE ESTERASE,URINE NEGATIVE (NEGATIVE); NITRITE,URINE NEGATIVE (NEGATIVE); OCCULT BLOOD,URINE NEGATIVE (NEGATIVE); PH,URINE 7.5 (4.5-8.0); PROTEIN,URINE NEGATIVE (NEGATIVE); UROBILINOGEN,URINE 0.2 EU/dL (0.2-1.0)
[2024-03-22 20:37] LABS: BASOPHILS ABSOLUTE AUTO 0.02 10^3/uL (0.00-0.50); BASOPHILS PERCENT AUTO 0.2 % (0-1); EOSINOPHILS ABSOLUTE AUTO 0.04 10^3/uL (0.00-1.50); EOSINOPHILS PERCENT AUTO 0.3 % (0-6); HEMATOCRIT 32.3 % (37.0-47.0); IMMATURE GRAN ABSOLUTE AUTO 0.08 10^3/uL (0.00-0.49); IMMATURE GRAN PERCENT AUTO 0.7 % (0.0-4.9); LYMPHOCYTES ABSOLUTE AUTO 0.76 10^3/uL (0.60-5.00); LYMPHOCYTES PERCENT AUTO 6.5 % (24-44); MEAN CORPUSCULAR HEMOGLOBIN 25.2 pg (27.0-32.0); MEAN CORPUSCULAR VOLUME 81.4 fL (83.0-97.0); MONOCYTES ABSOLUTE AUTO 0.68 10^3/uL (0.00-1.50); MONOCYTES PERCENT AUTO 5.9 % (0-10); NEUTROPHILS ABSOLUTE AUTO 10.03 x10^3/uL (1.80-8.00); NEUTROPHILS PERCENT AUTO 86.4 % (41-71); PLATELET COUNT,PLT 203 10^3/uL (150-400); RED BLOOD CELL COUNT 3.97 x10^6/uL (4.00-5.50); WHITE BLOOD CELL COUNT,WBC 11.6 10^3/uL (4.0-11.0)
[2024-03-22] MEDS: Ondansetron 4 MG/2 ML SDV IVPUSH STA (20:46)
[2024-03-22] MEDS: HYDROmorphone 0.5 MG/0.5 ML Syringe IVPUSH ONE (20:49)
[2024-03-22 20:52] LABS: ALANINE AMINOTRANSFERASE,ALT 22 U/L (12-78); ALBUMIN 3.6 g/dL (3.4-5.0); ALKALINE PHOSPHATASE 268 U/L (46-116); ASPARTATE AMNIOTRANSFERASE,AST 41 U/L (15-37); BILIRUBIN TOTAL 0.9 mg/dL (0.0-1.0); BLOOD UREA NITROGEN,BUN 18 mg/dL (7-18); C-REACTIVE PROTEIN 0.77 mg/dL (<=0.50); CALCIUM 9.1 mg/dL (8.4-10.1); CARBON DIOXIDE,CO2 26 mmol/L (21-32); CHLORIDE,CL 99 mEq/L (98-106); CREATININE 1.1 mg/dL (0.6-1.0); EST CRCL DRUG DOSING (CG) 36.56 mL/min; GLUCOSE RANDOM 227 mg/dL (75-99); POTASSIUM,K 3.6 mEq/L (3.5-5.0); PROTEIN TOTAL,TP 6.9 g/dL (6.4-8.2); SODIUM,NA 140 mEq/L (136-145)
[2024-03-22 20:53] LABS: ESTIMATED GFR 53 mL/min (>=60)
[2024-03-22] MEDS: HYDROmorphone 0.5 MG/0.5 ML Syringe IVPUSH PRN (21:31)
[2024-03-22 22:48] VITALS: BP 118/59; PULSE 84
== END 2024-03-22 22:00 ==
LOC: CC.ED 19:20
DX: S32.511A Fracture of superior rim of right pubis, initial encounter for closed fracture (principal); S32.591A Other specified fracture of right pubis, initial encounter for closed fracture; S72.001A Fracture of unspecified part of neck of right femur, initial encounter for closed fracture; I10 Essential (primary) hypertension; J45.909 Unspecified asthma, uncomplicated; E11.9 Type 2 diabetes mellitus without complications; Z88.5 Allergy status to narcotic agent; Z88.8 Allergy status to other drugs, medicaments and biological substances; Z88.1 Allergy status to other antibiotic agents; Z79.51 Long term (current) use of inhaled steroids; Z90.710 Acquired absence of both cervix and uterus; Z79.899 Other long term (current) drug therapy; W19.XXXA Unspecified fall, initial encounter
CPT/HCPCS: 36415; 70450; 80053; 81003; 83735; 84484; 85025; 86140; 93005; 93010; 96374; 96375; 96376; 99284; 99285-25; J1170; J2405

== ENCOUNTER 2024-03-30 12:15 | Inpatient (IN) | payer MEDICARE, MEDICAID ==
[2024-03-30] MEDS ORDERED: Albuterol 6.7 GM Inhaler INH PRN (14:13)
[2024-03-30] MEDS ORDERED: Nystatin Topical Powder 15 GM Bottle TOP PRN (14:13)
[2024-03-30] MEDS ORDERED: Acetaminophen 325 MG Tab PO PRN (14:24)
[2024-03-30] MEDS ORDERED: Ondansetron 4 MG Tab.DIS PO PRN (14:24)
[2024-03-30] MEDS ORDERED: Fluticasone NASAL Spray 16 GM Bottle NASBOTH PRN (14:32)
[2024-03-30] MEDS: Acetaminophen/HYDROcodone 325-5 MG Tab PO PRN (15:11)
[2024-03-30] MEDS ORDERED: Glucagon,Human Recombinant 1 MG Vial IM PRN (16:26)
[2024-03-30] MEDS ORDERED: 50% Dextrose in Water 50 ML Syringe IVPUSH PRN (16:26)
[2024-03-30] MEDS ORDERED: INSULIN LISPRO 100 UNIT/ML SQ SCH (17:30)
[2024-03-30] MEDS: Sucralfate 1 GM Tab PO SCH (17:30)
[2024-03-30] MEDS ORDERED: [UNRECOGNIZED DRUG - OTHER] SQ SCH (17:30)
[2024-03-30] MEDS ORDERED: INSULN SQ SCH (17:30)
[2024-03-30] MEDS: Pantoprazole 40 MG Tab.CR PO SCH (18:00)
[2024-03-30] MEDS: Calcium Carbonate/Vitamin D3 1250 MG-5 MCG Tab PO SCH (18:12)
[2024-03-30] MEDS: Insulin Lispro 100 Units/ML 3 ML Vial SUBCUT SCH (18:15)
[2024-03-30] MEDS: Temazepam 15 MG Cap PO SCH (19:53)
[2024-03-30] MEDS: Apixaban 5 MG Tab PO SCH (19:53)
[2024-03-30] MEDS: Sennosides/Docusate Sodium 50-8.6 MG Tab PO SCH (19:53)
[2024-03-30] MEDS: Gabapentin 300 MG Cap PO SCH (19:54)
[2024-03-30] MEDS: Gabapentin 100 MG Cap PO SCH (19:54)
[2024-03-30] MEDS: QUEtiapine 100 MG Tab PO SCH (19:54)
[2024-03-30] MEDS: Formoterol/Mometasone 100-5 MCG 8.8 GM Inhaler INH SCH (19:55)
[2024-03-30] MEDS: Loratadine 10 MG Tab PO SCH (19:55)
[2024-03-30] MEDS: Hypromellose 0.3% Ophth Soln 15 ML Bottle EYEBOTH SCH (19:56)
[2024-03-30] MEDS: Insulin Glarg,Human.Rec.Analog 100 Unit/ML 10 ML Vial SUBCUT SCH (20:21)
[2024-03-31] MEDS: Citalopram 10 MG Tab PO SCH (07:49)
[2024-03-31] MEDS: Polyethylene Glycol 3350 Powder 17 GM Packet PO SCH (07:49)
[2024-03-31] MEDS: Saxagliptin 2.5 MG Tab PO SCH (07:49)
[2024-03-31] MEDS: Folic Acid 1 MG Tab PO SCH (07:50)
[2024-03-31] MEDS: Potassium Chloride 20 MEQ Tab.ER PO SCH (07:50)
[2024-03-31] MEDS: Magnesium Oxide 400 MG Tab PO SCH (07:50)
[2024-03-31] MEDS: Cyanocobalamin (Vitamin B12) 1,000 MCG Tab PO SCH (07:50)
[2024-03-31] MEDS: Vitamin B Complex Cap PO SCH (07:50)
[2024-03-31] MEDS: Cholecalciferol (Vitamin D3) 25 MCG Tab PO SCH (07:51)
[2024-03-31] MEDS: Metoprolol Succinate 25 MG Tab.ER PO SCH (07:51)
[2024-03-31] MEDS: Furosemide 40 MG Tab PO SCH (07:51)
[2024-03-31] MEDS: Lidocaine 4% 1 each Patch TOP PRN (10:38)
[2024-03-31] MEDS: Cyclobenzaprine 10 MG Tab PO PRN (11:54)
[2024-04-03] MEDS: Sucralfate 1 GM Tab PO SCH ×2 (11:24→19:38)
[2024-04-08] MEDS: Aspirin 325 MG Tab PO SCH (07:58)
[2024-04-08] MEDS: Triamcinolone Acetonide 0.1% Crm 15 GM Tube TOP SCH (12:00)
[2024-04-08] MEDS: Hydrocortisone/Neomycin/Polymyxin B Otic Susp 10 ML Bottle EARBOTH SCH ×2 (16:06→17:51)
[2024-04-10 07:53] VITALS: BP 128/62; PULSE 69
[2024-04-10 11:09] LABS: HEMATOCRIT 30.9 % (37.0-47.0); HEMOGLOBIN 9.2 g/dL (12.0-16.0)
== END 2024-04-10 15:30 | disposition home or self-care (01) | DRG 561 ==
LOC: CC.MS 14:08 → UNDOADMIN 14:08 → CC.MS 14:24
PROVIDERS: ADMIT Nurse Practitioner Family; ATTEND Nurse Practitioner Family
DX: Z47.89 Encounter for other orthopedic aftercare (principal); F41.9 Anxiety disorder, unspecified; F32.A Depression, unspecified; D64.9 Anemia, unspecified; S72.001D Fracture of unspecified part of neck of right femur, subsequent encounter for closed fracture with routine healing; W18.30XD Fall on same level, unspecified, subsequent encounter; Z88.8 Allergy status to other drugs, medicaments and biological substances; Z88.1 Allergy status to other antibiotic agents; Z88.2 Allergy status to sulfonamides; Z88.6 Allergy status to analgesic agent; Z90.89 Acquired absence of other organs; Z90.710 Acquired absence of both cervix and uterus; S32.9XXD Fracture of unspecified parts of lumbosacral spine and pelvis, subsequent encounter for fracture with routine healing
CPT/HCPCS: 36415; 82947; 85014; 85018; 94640; 97110-GP; 97161-GP; 97530-GP; A6213; A9270-GY; J1815-GY

== ENCOUNTER 2025-05-24 13:45 | Emergency (ER) | payer MEDICARE, MEDICAID ==
[2025-05-24 13:53] VITALS: BP 144/72; PULSE 95
[2025-05-24 14:31] LABS: BASOPHILS ABSOLUTE AUTO 0.01 10^3/uL (0.00-0.50); BASOPHILS PERCENT AUTO 0.3 % (0-1); EOSINOPHILS ABSOLUTE AUTO 0.08 10^3/uL (0.00-1.50); EOSINOPHILS PERCENT AUTO 2.5 % (0-6); IMMATURE GRAN ABSOLUTE AUTO 0.02 10^3/uL (0.00-0.49); IMMATURE GRAN PERCENT AUTO 0.6 % (0.0-4.9); LYMPHOCYTES ABSOLUTE AUTO 0.66 10^3/uL (0.60-5.00); LYMPHOCYTES PERCENT AUTO 20.5 % (24-44); MONOCYTES ABSOLUTE AUTO 0.29 10^3/uL (0.00-1.50); MONOCYTES PERCENT AUTO 9.0 % (0-10); NEUTROPHILS ABSOLUTE AUTO 2.16 x10^3/uL (1.80-8.00); NEUTROPHILS PERCENT AUTO 67.1 % (41-71); PLATELET COUNT,PLT 158 10^3/uL (150-400); RED BLOOD CELL COUNT 4.39 x10^6/uL (4.00-5.50); WHITE BLOOD CELL COUNT,WBC 3.2 10^3/uL (4.0-11.0)
[2025-05-24 14:41] LABS: ALANINE AMINOTRANSFERASE,ALT 19.0 U/L (12-78); ASPARTATE AMNIOTRANSFERASE,AST 23.0 U/L (15-37); BILIRUBIN TOTAL 0.3 mg/dL (0.0-1.0); BLOOD UREA NITROGEN,BUN 17.0 mg/dL (7-18); CARBON DIOXIDE,CO2 32.0 mmol/L (21-32); CHLORIDE,CL 102.0 mEq/L (98-106); CREATININE 1.1 mg/dL (0.6-1.0); EST CRCL DRUG DOSING (CG) 36.02 mL/min; GLUCOSE RANDOM 125.0 mg/dL (75-99); POTASSIUM,K 4.1 mEq/L (3.5-5.0); PROTEIN TOTAL,TP 6.3 g/dL (6.4-8.2); SODIUM,NA 141.0 mEq/L (136-145)
[2025-05-24 14:42] LABS: ESTIMATED GFR 53.0 mL/min (>=60)
[2025-05-24 15:02] LABS: D-DIMER QUANTITATIVE 1.94 (0.00-0.50); INR 1.0 (0.92-1.18); PTT,PARTIAL THROMBOPLSTIN TIME 26.7 SEC (20.0-30.0)
== END 2025-05-24 15:32 | disposition home or self-care (01) ==
LOC: CC.ED 13:45
DX: M79.661 Pain in right lower leg (principal); R79.1 Abnormal coagulation profile; I10 Essential (primary) hypertension; J45.909 Unspecified asthma, uncomplicated; E11.9 Type 2 diabetes mellitus without complications; Z88.5 Allergy status to narcotic agent; Z88.2 Allergy status to sulfonamides; Z88.8 Allergy status to other drugs, medicaments and biological substances; Z79.899 Other long term (current) drug therapy; Z90.710 Acquired absence of both cervix and uterus
CPT/HCPCS: 36415; 73590-RT; 80053; 83735; 85025; 85379; 85610; 85651; 85730; 86140; 99284